=== PATIENT | female | born 1950 | race Caucasian/White ===

== ENCOUNTER → 2019-10-21 11:38 | Outpatient (BNVA) | payer MEDICARE, OTHER, SELFPAY | PROVIDERS: Family Provider Nurse Practitioner; PCP Nurse Practitioner; Visit Provider Nurse Practitioner | DX: I10 Essential (primary) hypertension (principal); J45.909 Unspecified asthma, uncomplicated | CPT/HCPCS: 80053 ==

== ENCOUNTER → 2020-05-21 11:34 | Outpatient (BNVA) | payer MEDICARE, OTHER, SELFPAY | PROVIDERS: Family Provider Nurse Practitioner; PCP Nurse Practitioner; Visit Provider Nurse Practitioner | DX: I10 Essential (primary) hypertension (principal); E78.2 Mixed hyperlipidemia; E55.9 Vitamin D deficiency, unspecified; J45.909 Unspecified asthma, uncomplicated; K21.9 Gastro-esophageal reflux disease without esophagitis; G47.00 Insomnia, unspecified | CPT/HCPCS: 80053; 80061; 82306; 83721; 84443 ==

== ENCOUNTER 2020-06-21 13:16 | Emergency (ER) | payer MEDICARE, OTHER, SELFPAY ==
[2020-06-21 13:20] VITALS: BP 174/80; PULSE 92; RESP 16; TEMP 36.6; O2SAT 96; BMI 29.9
--- NOTE | 2020-06-21 13:34 | XRR_ITS ---
PROCEDURE INFORMATION: Exam: XR Chest, 1 View Exam date and time: 06/21/2020 1:35 PM Age: 70 years old Clinical indication: Chest pain; Type not specified; Additional info: Cp TECHNIQUE: Imaging protocol: XR of the chest Views: 1 view. COMPARISON: No relevant prior studies available. FINDINGS: Lungs: There is a 1 cm calcified granuloma in the mid right lung. No acute pneumonia or edema. Pleural space: Unremarkable. No pleural effusion. No pneumothorax. Heart/Mediastinum: Unremarkable. No cardiomegaly. Bones/joints: Unremarkable. XR/XR chest 1V portable [id number] IMPRESSION: There are no acute concerning abnormalities.
--- NOTE | 2020-06-21 13:35 | ECG_ITS ---
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 Measurements Intervals [place] Rate: 86 P: 61 CA: 148 QRS: -27 QRSD: 89 T: 68 QT: 350 QTc: 421 Interpretive Statements SINUS RHYTHM BORDERLINE LEFT AXIS DEVIATION [QRS AXIS < -20] No previous ECG available for comparison Electronically Signed On 06-22-2020 8:04:34 HEEL FORMER by Halie Marie M.D. [id number]
--- NOTE | 2020-06-21 13:41 | W.ED.CHESTPA ---
HPI - Chest Pain General: Chief Complaint: Chest Pain Stated Complaint: CP, Hx of Covid Time Seen by Provider: 06/21/20 13:35 Source: patient Mode of arrival: ambulatory Limitations: no limitations History of Present Illness: HPI narrative: Ana Cristina is a 70-year-old female who states she has been having chest pain along with cough and shortness of breath over the last 3 days. She states she tested positive for Covid on 1015 and is out of quarantine. She states she is having a sharp pain along with cough and is worried she may have pneumonia. She denies any worsening improving factors. Denies any vomiting or diarrhea. Associated symptoms: Reports dyspnea; Deny abdominal pain, fever(s), nausea or vomiting Review of Systems Const: Denies: fever(s), chills, body aches or change in appetite Eyes: Denies: blurry vision or eye discomfort ENMT: Denies: throat pain or dental pain Card: Reports: chest pain Resp: Reports: dyspnea and non-productive cough GI: Denies: abdominal pain, nausea, vomiting or diarrhea : Denies: dysuria Musc: Denies: neck pain or back pain Skin/Breast: Denies: rash Neuro: Denies: headache(s) Psych: Denies: depression Franc/Lymph: Denies: easy bruising All/Imm: Denies: urticaria PFSH ED PFSH: Medical History Asthma Diverticulosis Essential (primary) hypertension GERD (gastroesophageal reflux disease) Mixed hyperlipidemia Vitamin D deficiency Surgical History H/O colonoscopy 5 yrs ago History of cholecystectomy History of foot surgery Left 2nd toe joint removed History of hysterectomy History of tonsillectomy Family History Mother Diabetes Son Hypertension Daughter Hypertension Diabetes Father Cardiovascular disease Grandmother Anesthesia complication Denies family history of Bleeding disorder Social History Smoking and tobacco status: never smoked Second hand smoke exposure: No Smoking risk assessment/counseling performed?: No Alcohol intake: never Desire information about alcohol rehabilitation?: No Counseling given: No Desire information about substance/drug rehabilitation?: No Counseling given: No Adopted: No Caregiver/support person: No Lives independently: Yes Marital status: Number of children: 2 Current occupational status: retired History of recent travel: No Current gender identity: Female Physical Exam Const: COMMON NORMALS: no acute distress, patient oriented x3 and healthy appearing HENMT: COMMON NORMALS: normocephalic and atraumatic HEAD & SCALP: normocephalic and atraumatic Eye: COMMON NORMALS: Equal, round and reactive pupils present and EOMs intact bilaterally PUPIL: Yes Equal, round and reactive pupils present Neck/C-Spine: COMMON NORMALS: full ROM and supple Chest: COMMONS NORMALS: normal inspection of the chest and normal palpation of entire chest wall Resp: COMMON NORMALS: normal respiratory effort, No retractions, No use of accessory muscles and clear to auscultation bilaterally AUSCULTATION: clear to auscultation bilaterally Cardio: COMMON NORMALS: regular rate, regular rhythm and No murmurs present (Cardio) RATE: regular rate RHYTHM: regular rhythm GI: COMMON NORMALS: Normal to inspection, nondistended, normoactive bowel sounds present, Soft to palpation, non-tender and no masses PALPATION: Yes Soft to palpation Extremity: COMMON NORMALS: normal to inspection and full ROM Neuro: COMMON NORMALS: patient oriented x3, moves all extremities and no focal motor deficits Psych: COMMON NORMALS: mental status grossly normal, Normal thought process present and cooperative THOUGHT PROCESS: Normal thought process present Skin: COMMON NORMALS: no rashes or lesions noted and no wounds GENERAL SKIN EXAM: no rashes or lesions noted Course Vital Signs: Vital signs: Vital Signs Temperature 97.9 F 06/21/20 13:20 Pulse Rate 86 06/21/20 14:43 Respiratory Rate 24 H 06/21/20 14:43 Blood Pressure 162/63 06/21/20 14:43 Pulse Oximetry 95 06/21/20 14:43 MDM - Chest Pain MDM Narrative: Medical decision making narrative: Patient presents here with some chest pain along with dyspnea that is atypical in nature. Is likely post Covid. Patient feels much better here after treatment and steroid. Patient is stable for discharge. X-ray showed no pneumonia. She has no signs of pulmonary embolism. Troponin here is negative. Lab Data: Labs: Lab Results 11/08/20 11/08/20 11/08/20 Range/Units 13:50 13:50 13:50 WBC 9.0 (4.0-10.0) 10^3/ uL RBC 4.46 (4.1-5.3) 10^6/u L Hgb 14.3 (11.5-15.3) g/dL Hct 42.4 (37.0-47.0) % MCV 95.1 (81-99) fL MCH 32.1 (28.0-34.0) pg MCHC 33.7 (30.0-36.0) g/dL RDW 12.0 L (12.1-15.1) % Plt Count 281 (130-400) 10^3/c mm MPV 9.9 (7.4-10.4) fL Neut % (Auto) 76.4 % Lymph % (Auto) 10.4 % [place] % (Auto) 11.4 % Eos % (Auto) 0.4 % Baso % (Auto) 0.4 % Neut # (Auto) 6.88 (1.8-7.7) 10^3/u L Lymph # (Auto) 0.9 (0.8-4.8) 10^3/u L [place] # (Auto) 1.0 H (0.2-0.9) 10^3/u L Eos # (Auto) 0.0 (0.0-0.8) 10^3/u L Baso # (Auto) 0.0 (0.0-0.1) 10^3/u L Nucleated RBC % (a uto) 0 % Nucleated RBCs # 0.0 /100WBC PT 13.50 (12.1-14.9) SECO NDS INR 1.00 (0.8-1.2) D-Dimer 0.58 (0-0.59) ug/mIFE U Sodium 136 (136-145) mmol/L Potassium 4.2 (3.5-5.1) mmol/L Chloride 98 (98-107) mmol/L Carbon Dioxide 27 (22-29) mmol/L Anion Gap 15.2 (5-19) BUN 17 (8-23) mg/dL Creatinine 0.7 (0.5-0.9) mg/dL GFR Calculation 83.0 L (90-130) mL/min Glucose 198 H (65-115) mg/dL Calculated Osmolal ity 289 (285-295) mOsm/k g Calcium 8.9 (8.5-10.5) mg/dL Total Bilirubin 1.4 H (0.15-1.2) mg/dL AST 17 (0-32) U/L ALT 19 (0-33) U/L Alkaline Phosphata se 64 (35-105) IU/L Troponin T Baselin e (0-10) ng/L NT-Pro-B Natriuret Pep 459 H (0-125) pg/mL Total Protein 6.5 L (6.6-8.7) g/dL Albumin 4.0 (3.5-5.2) g/dL Globulin 2.5 (1.3-4.6) g/dL 06/21/20 Range/Units 13:50 WBC (4.0-10.0) 10^3/ uL RBC (4.1-5.3) 10^6/u L Hgb (11.5-15.3) g/dL Hct (37.0-47.0) % MCV (81-99) fL MCH (28.0-34.0) pg MCHC (30.0-36.0) g/dL RDW (12.1-15.1) % Plt Count (130-400) 10^3/c mm MPV (7.4-10.4) fL Neut % (Auto) % Lymph % (Auto) % [place] % (Auto) % Eos % (Auto) % Baso % (Auto) % Neut # (Auto) (1.8-7.7) 10^3/u L Lymph # (Auto) (0.8-4.8) 10^3/u L [place] # (Auto) (0.2-0.9) 10^3/u L Eos # (Auto) (0.0-0.8) 10^3/u L Baso # (Auto) (0.0-0.1) 10^3/u L Nucleated RBC % (a uto) % Nucleated RBCs # /100WBC PT (12.1-14.9) SECO NDS INR (0.8-1.2) D-Dimer (0-0.59) ug/mIFE U Sodium (136-145) mmol/L Potassium (3.5-5.1) mmol/L Chloride (98-107) mmol/L Carbon Dioxide (22-29) mmol/L Anion Gap (5-19) BUN (8-23) mg/dL Creatinine (0.5-0.9) mg/dL GFR Calculation (90-130) mL/min Glucose (65-115) mg/dL Calculated Osmolal ity (285-295) mOsm/k g Calcium (8.5-10.5) mg/dL Total Bilirubin (0.15-1.2) mg/dL AST (0-32) U/L ALT (0-33) U/L Alkaline Phosphata se (35-105) IU/L Troponin T Baselin e 10 (0-10) ng/L NT-Pro-B Natriuret Pep (0-125) pg/mL Total Protein (6.6-8.7) g/dL Albumin (3.5-5.2) g/dL Globulin (1.3-4.6) g/dL Imaging Data^: CXR: Attestation: I personally reviewed and interpreted this imaging study as follows: My impression: No acute abnormality EKG Data^: EKG 1: Attestation: I personally reviewed and interpreted this EKG as follows: EKG interpretation date: 06/21/20 Interpretation: Normal sinus rhythm heart rate [address] or T wave abnormalities QRS 89 QTc 394 Discharge Plan Discharge Patient Disposition: Home Clinical Impression: Atypical chest pain Condition: Stable Prescriptions: No Action albuterol sulfate [Proventil HFA] 90 mcg/actuation HFA aerosol inhaler 2 puff INHALATION TID PRN (Reason: shortness of breath or wheezing) Qty: 18 RF: 5 montelukast 10 mg tablet 10 mg PO DAILY Qty: 30 RF: 2 Blood Pressure Support 1 tab PO DAILY RF: 0 Discharge Orders: Discharge Order (Routine); Ordered 06/21/20 Ordered By: Maxine Nichole Referrals: Cornelius Hansen FNP-C [Primary Care Provider] - 1-3 days Discharge Diet: Advance as tolerated Discharge Activity: Resume usual activity Patient Instructions: Chest Pain (ED) Coding Level of Care Code ED Director Traffic And Planning for Chg Fwd Exam Comprehensive
[2020-06-21 14:07] LABS: Basophils % 0.4 %; Eosinophils % 0.4 %; Hematocrit 42.4 % (37.0-47.0); Hemoglobin 14.3 g/dL (11.5-15.3); Lymphocytes # 0.9 10^3/uL (0.8-4.8); Lymphocytes % 10.4 %; Mean Corpuscular HGB Conc 33.7 g/dL (30.0-36.0); Mean Corpuscular Hemoglobin 32.1 pg (28.0-34.0); Mean Corpuscular Volume 95.1 fL (81-99); Mean Platelet Volume 9.9 fL (7.4-10.4); Monocytes % 11.4 %; Neutrophils # 6.88 10^3/uL (1.8-7.7); Neutrophils % 76.4 %; Nucleated Red Blood Cells % 0 %; Platelet Count 281 10^3/cmm (130-400); Red Blood Count 4.46 10^6/uL (4.1-5.3)
[2020-06-21] MEDS: dexamethasone 4 mg/mL INJ 10 MG IVP (14:10)
[2020-06-21 14:31] LABS: Troponin(5th) Baseline 10 ng/L (0-10)
[2020-06-21 14:32] VITALS: PULSE 84; RESP 16; O2SAT 97
[2020-06-21] MEDS: albuterol 8 gm MDI 2 PUFF INHALATION (14:33)
[2020-06-21 14:36] LABS: Alanine Aminotransferase 19 U/L (0-33); Alkaline Phosphatase 64 IU/L (35-105); Aspartate Amino Transferase 17 U/L (0-32); Blood Urea Nitrogen 17 mg/dL (8-23); Calcium 8.9 mg/dL (8.5-10.5); Carbon Dioxide 27 mmol/L (22-29); Chloride 98 mmol/L (98-107); Creatinine Clr Calc Pharmacy 70.0508; Globulin 2.5 g/dL (1.3-4.6); Glucose 198 mg/dL (65-115); NT Pro B Type Natriuretic Pept 459 pg/mL (0-125); Osmolality Calculated 289 mOsm/kg (285-295); Sodium 136 mmol/L (136-145); Total Bilirubin 1.4 mg/dL (0.15-1.2); Total Protein 6.5 g/dL (6.6-8.7)
[2020-06-21 14:43] VITALS: BP 162/63; PULSE 86; RESP 24; O2SAT 95
[2020-06-21 14:44] LABS: Anion Gap 15.2 (5-19); Potassium 4.2 mmol/L (3.5-5.1)
[2020-06-21 14:49] LABS: D Dimer 0.58 ug/mIFEU (0-0.59)
[2020-06-21] MEDS: morphine 4 mg/mL SDV 1 mL IVP (14:55)
[2020-06-21] MEDS: ondansetron 2 mg/ML SDV 2 mL 4 MG IVP (14:55)
[2020-06-21 15:19] VITALS: BP 159/86; PULSE 85; RESP 15; O2SAT 93
== END 2020-06-21 15:19 | disposition home or self-care (01) ==
PROVIDERS: Emergency Provider Emergency Medicine; PCP Nurse Practitioner
DX: R07.89 Other chest pain (principal); I10 Essential (primary) hypertension; E78.2 Mixed hyperlipidemia
CPT/HCPCS: 12345; 71045; 80053; 83880; 84484; 85025; 85378; 85610; 93005; 94640; 96374; 96375; 99282; 99284; J1100; J2270; J2405; J3535

== ENCOUNTER → 2020-07-15 17:47 | Outpatient (BNVA) | payer MEDICARE, OTHER, SELFPAY | PROVIDERS: PCP Nurse Practitioner; Visit Provider Surgery | DX: Z01.818 Encounter for other preprocedural examination (principal); Z20.828 Contact with and (suspected) exposure to other viral communicable diseases; K21.9 Gastro-esophageal reflux disease without esophagitis | CPT/HCPCS: 87635 ==

== ENCOUNTER 2020-08-18 08:16 | Day surgery (SDC) | payer MEDICARE, OTHER, SELFPAY ==
[2020-08-13 14:07] VITALS: BMI 30.9
[2020-08-18 08:40] VITALS: BP 170/88; PULSE 78; RESP 18; TEMP 37.1; O2SAT 94
[2020-08-18] MEDS: sodium chloride 0.9% 1,000 ML 30 ML IV (09:13)
--- NOTE | 2020-08-18 11:51 | W.PM.OPSFHP ---
Same Day Surgery H&P Indication for Procedure/HPI DATE OF PROCEDURE: August 18, 2020 CHIEF COMPLAINT/INDICATIONFOR SURGICAL PROCEDURE: dysphagia PREOP DIAGNOSIS: upper gi symptoms PLANNED PROCEDRUE: Operation Date: 08/18/20 09:30 Proposed Procedures p EGD Dilation W/ Balloon 13574 R13.10(Not Applicable) - Renny Stevens MD Medications/Allergies* Home Medications Medication Instructions Recorded Confirmed Type Blood Pressure Support 1 tab PO DAILY 06/21/20 08/13/20 History lisinopril 40 mg PO PRN 08/13/20 08/18/20 History montelukast 10 mg PO PRN 08/18/20 08/18/20 History Allergies/Adverse Reactions Allergy/AdvReac Type Severity Reaction Status Date / Time cephalexin [From Keflex] Allergy rash Verified 06/23/20 13:22 doxycycline Allergy rash Verified 06/23/20 13:22 erythromycin base Allergy Rash Verified 06/23/20 13:22 nitrofurantoin Allergy rash Verified 06/23/20 13:22 [From Macrodantin] Sulfa (Sulfonamide Allergy ALGY-Hives Verified 06/23/20 13:22 Antibiotics) metformin AdvReac Severe Diarrhea Verified 06/23/20 13:22 atorvastatin [From Lipitor] AdvReac Myalgia Verified 06/23/20 13:22 Current Medications: Generic Name Dose Route Start Last Admin Trade Name Freq PRN Reason Stop Dose Admin Sodium Chloride 1,000 mls @ 30 mls/hr 08/18/20 09:00 08/18/20 09:13 Sodium Chloride 0.9% IV 08/19/20 08:59 30 mls/hr .Q24H GABRIELLA Administration Pertinent History/Comorbid Conditions* Medical History (Updated 06/29/20 @ 00:00 by ) Asthma Diverticulosis Essential (primary) hypertension GERD (gastroesophageal reflux disease) Mixed hyperlipidemia Vitamin D deficiency Surgical History (Updated 06/15/20 @ 08:59 by Renny Stevens MD) H/O colonoscopy 5 yrs ago History of cholecystectomy History of foot surgery Left 2nd toe joint removed History of hysterectomy History of tonsillectomy Family History (Updated 06/15/20 @ 08:48 by Darcy Gamez LPN) Diabetes Mother Daughter Cardiovascular disease Father Anesthesia complication Grandmother Hypertension Son Daughter Denies family history of Bleeding disorder Social History Smoking and tobacco status: never smoked Second hand smoke exposure: No Smoking risk assessment/counseling performed?: No Alcohol intake: never Desire information about alcohol rehabilitation?: No Counseling given: No Desire information about substance/drug rehabilitation?: No Counseling given: No Adopted: No Caregiver/support person: No Lives independently: Yes Marital status: Number of children: 2 Current occupational status: retired History of recent travel: No Current gender identity: Female Pertinent Exam Findings alert, oriented x 3 and regular rate & rhythm Recommendations Surgery/Procedure today Coding Level of Care Code Acute 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
--- NOTE | 2020-08-18 11:53 | ANES.PREANE2 ---
Pre-Anesthetic Assessment Pre-Anesthetic Assessment: Height/Weight: Height 1.63 m Weight 81.647 kg Temp Pulse Resp BP Pulse Ox 98.7 F 78 18 170/88 94 08/18/20 08:40 08/18/20 08:40 08/18/20 08:40 08/18/20 08:40 08/18/20 08:40 Preop Diagnosis: upper gi symptoms Proposed Procedure: Operation Date: 08/18/20 09:30 Proposed Procedures p EGD Dilation W/ Balloon 97707 R13.10(Not Applicable) - Renny Stevens MD Familial anesthetic complications: none Was Beta Patrizia taken within 24 hours: N/A Last intake: Intake Last Liquid Date 08/17/20 Last Liquid Time 23:30 Last Solid Date 08/17/20 Last Solid Time 19:00 Social: Social History: No alcohol and No tobacco Exam: Pre-Anes Outpt Exam: alert, oriented x 3, clear to auscultation bilaterally and regular rate & rhythm Airway: Cervical ROM: WNL MP: 3 Dentition: Full Pulmonary: Pulmonary: Asthma CV/HEM: CV/HEM: HTN GI: GI: GERD Metabolic: Metabolic: Hyperlipidemia Anesthetic Plan: ASA status: 2 Anesthesia: MAC Risk of > 500 ml blood loss (7ml/kg in children): No Meds/Allergies Current Medications: Current Medications Generic Name Dose Route Start Last Admin Trade Name Freq PRN Reason Stop Dose Admin Sodium Chloride 1,000 mls @ 30 ml s/hr 08/18/20 09:00 08/18/20 09:13 Sodium Chloride 0.9% IV 08/19/20 08:59 30 mls/hr .Q24H GABRIELLA Administration PFSH Anesthesia PFSH: Medical History (Updated 06/29/20 @ 00:00 by ) Asthma Diverticulosis Essential (primary) hypertension GERD (gastroesophageal reflux disease) Mixed hyperlipidemia Vitamin D deficiency Surgical History H/O colonoscopy 5 yrs ago History of cholecystectomy History of foot surgery Left 2nd toe joint removed History of hysterectomy History of tonsillectomy Family History Mother Diabetes Son Hypertension Daughter Hypertension Diabetes Father Cardiovascular disease Grandmother Anesthesia complication Denies family history of Bleeding disorder Social History Smoking and tobacco status: never smoked Second hand smoke exposure: No Smoking risk assessment/counseling performed?: No Alcohol intake: never Desire information about alcohol rehabilitation?: No Counseling given: No Desire information about substance/drug rehabilitation?: No Counseling given: No Adopted: No Caregiver/support person: No Lives independently: Yes Marital status: Number of children: 2 Current occupational status: retired History of recent travel: No Current gender identity: Female Data Anesthesia Cardiac Studies: No Data to Display
--- NOTE | 2020-08-18 12:09 | SUR.OPER ---
1205 Balloon dilation with 15, 16.5, 18 and 18, 19, 20. Pt tolerated well.
[2020-08-18 12:13] VITALS: BP 161/74; PULSE 86; RESP 16; TEMP 36.3; O2SAT 94
[2020-08-18 12:28] VITALS: BP 169/79; PULSE 86; RESP 16; TEMP 37.1; O2SAT 94
--- NOTE | 2020-08-18 13:42 | SUR.PHASEII ---
PATIENT TOLERATED COOL PO FLUIDS WELL.
--- NOTE | 2020-08-18 18:55 | ANE.PACU2 ---
Inpatient post-anesthesia follow up: Airway intact: Yes Vital signs: Temperature 98.7 F Pulse Rate 86 Respiratory Rate 16 Blood Pressure 169/79 Pulse Oximetry 94 Oxygen Delivery Me thod Room Air Oxygen Flow Rate 4 Fraction of Inspir ed Oxygen Hydration adequate: Yes Nausea and vomiting: No Pain level: 1 Mental status: Baseline
== END 2020-08-18 13:35 | disposition home or self-care (01) ==
PROVIDERS: PCP Nurse Practitioner; Visit Provider Surgery
DX: R13.10 Dysphagia, unspecified (principal); J45.909 Unspecified asthma, uncomplicated; I10 Essential (primary) hypertension; K21.9 Gastro-esophageal reflux disease without esophagitis; E78.2 Mixed hyperlipidemia; K44.9 Diaphragmatic hernia without obstruction or gangrene; K22.2 Esophageal obstruction
CPT/HCPCS: 12345; 43239; 43249; 88305; J2704; J3490; J7030

== ENCOUNTER 2020-12-23 14:11 | Outpatient (CLI) | payer MEDICARE, OTHER, SELFPAY ==
--- NOTE | 2020-12-23 14:18 | MM_ITS ---
WS: [id number] SCREENING DIGITAL MAMMOGRAM WITH CAD HISTORY: SCREENING COMPARISON: 03/03/2016 Bilateral CC and MLO views submitted. Computer aided detection analyzed. Breast composition: There are scattered areas of fibroglandular density. No suspicious masses, microc alcifications or architectural distortion. Benign calcifications in each breast. MM/[place] [id number] IMPRESSION: BI-RADS: 2-Benign FOLLOW UP: 1 Year Follow-up
--- NOTE | 2020-12-23 15:07 | XR_ITS ---
WS: [id number] SCREENING DEXA SCAN [employer] CLINICAL INFORMATION: POST MENOPAUSAL COMPARISON: 2015 FINDINGS: The L1-L4 bone mineral density measures 1.342 g/cm2. This corresponds to a T score score of 1.4 and Z score of 2.4. Left femoral neck bone mineral density measures 1.290 g/cm2. This corresponds to a T score of 2.2 and Z score of 3.2. Right femoral neck bone mineral density measures 1.162 g/cm2. This corresponds to a T score 1.2of and Z score of 2.2. Mean femoral neck bone mineral density measures 1.226 g/cm2. This corresponds to a T score of 1.7 and Z score of 2.7. XR/XR DEXA axial skeleton* [id number] IMPRESSION: Normal bone mineralization. Patient's FRAX calculated 10 year probability for major osteoporotic fracture i s 7.2 % and osteoporotic hip fracture is 0.4%.
== END 2020-12-23 14:12 | disposition home or self-care (01) ==
LOC: RADSHAW 14:17
PROVIDERS: PCP Family Medicine; Visit Provider Family Medicine
DX: Z12.31 Encounter for screening mammogram for malignant neoplasm of breast (principal); Z78.0 Asymptomatic menopausal state
CPT/HCPCS: 77067; 77080

== ENCOUNTER → 2021-07-20 13:34 | Outpatient (BNVA) | payer MEDICARE, OTHER, SELFPAY | PROVIDERS: PCP Family Medicine; Visit Provider Nurse Practitioner | DX: I10 Essential (primary) hypertension (principal); J45.20 Mild intermittent asthma, uncomplicated; L24.7 Irritant contact dermatitis due to plants, except food | CPT/HCPCS: 80053; 80061; 83721; 84443 ==

== ENCOUNTER → 2022-02-16 11:06 | Outpatient (BNVA) | payer MEDICARE, OTHER, SELFPAY | PROVIDERS: PCP Family Medicine; Visit Provider Nurse Practitioner | DX: E78.2 Mixed hyperlipidemia (principal); R73.9 Hyperglycemia, unspecified; I10 Essential (primary) hypertension | CPT/HCPCS: 80053; 80061; 83036 ==

== ENCOUNTER → 2022-05-02 09:56 | Outpatient (BNVA) | payer MEDICARE, OTHER, SELFPAY | PROVIDERS: PCP Nurse Practitioner; Visit Provider Internal Medicine Cardiovascular Disease | DX: R07.9 Chest pain, unspecified (principal); I10 Essential (primary) hypertension; E78.5 Hyperlipidemia, unspecified; I65.29 Occlusion and stenosis of unspecified carotid artery | CPT/HCPCS: 99204; 99205 ==

== ENCOUNTER 2022-06-01 15:22 | Outpatient (CLI) | payer MEDICARE, OTHER, SELFPAY ==
--- NOTE | 2022-06-01 15:45 | USCV_ITS ---
Ana Cristina Stephens Age: 72 Gender: F : 1950 Exam Date: 06/01/2022 15:45 Ordering Phys: Juventino Wylie MD ([email or web address]) Technologist: SANJUANA [place] [facility] [place]: CAROTID BRUIT Risk Factors: Previous Vascular Surgery: Right Brachial BP: / Left Brachial BP: / Right Left Velocity (cm/s) Spectral Plaque Velocity (cm/s) Spectral Plaque Syst/Diast Broadening Syst/Diast Broadening 80.80/ 4.80 Prox CCA 62.90 / 17.90 51.90/ 7.90 Mid CCA 73.80 / 15.50 42.70/ 7.90 Distal CCA 79.20 / 27.20 33.80/ 6.80 Prox ICA 86.20 / 31.80 30.30/ 2.30 Mid ICA 123.60/ 35.50 23.00/ 5.90 Distal ICA 94.70 / 31.60 145.50 ECA 53.10 0.42 ICA/CCA 1.56 Vertebral 54.60/ 13.10 cm/s 48.00/ 9.20 cm/s Subclavian 173.2 132.8 0 0 CONCLUSIONS Right ICA stenosis <50%. Moderate calcified atheromatous plaque right carotid bulb/ICA. Poor flow in the right ICA distally. Recommend further evaluation with CTA Left ICA stenosis <50%. Moderate atheromatous plaque left carotid bulb/ICA. Normal antegrade Doppler flow noted in the right vertebral artery. Normal antegrade Doppler flow noted in the left vertebral artery. Aayush Zheng MD (Electronically Signed) Final Date: 01 June 2022 16:50 S
== END 2022-06-01 15:23 | disposition home or self-care (01) ==
LOC: RAD 15:24
PROVIDERS: PCP Nurse Practitioner; Visit Provider Internal Medicine Cardiovascular Disease
DX: R09.89 Other specified symptoms and signs involving the circulatory and respiratory systems (principal); I65.23 Occlusion and stenosis of bilateral carotid arteries
CPT/HCPCS: 93880

== ENCOUNTER 2022-06-07 15:31 | Outpatient (CLI) | payer MEDICARE, OTHER, SELFPAY ==
--- NOTE | 2022-06-07 15:45 | USCV_ITS ---
Ana Cristina Stephens Age: 72 Gender: F : 1950 Exam Date: 06/07/2022 15:43 Ordering Phys: Juventino Wylie MD ([email or web address]) Technologist: Luke Faria [place] [facility]ication: chest pain BP: 168 / 84 HR: 68 Rhythm: Sinus Technical Quality: Adequate MEASUREMENTS (Male / Female) Normal Values 2D ECHO LV Diastolic Diameter PLAX 3.6 cm 4.2 - 5.9 / 3.9 - 5.3 cm LV Systolic Diameter PLAX 2.5 cm IVS Diastolic Thickness 1.0 cm 0.6 - 1.0 / 0.6 - 0.9 cm IVS Systolic Thickness 1.2 cm LVPW Diastolic Thickness 0.9 cm 0.6 - 1.0 / 0.6 - 0.9 cm LVPW Systolic Thickness 1.3 cm LVOT Diameter 2.0 cm LV Ejection Fraction 2D Teich 60.4 % LV Ejection Fraction MOD 2C 65.8 % LV Ejection Fraction 2C AL 67.2 % LA Diameter 3.2 cm LA Width 3.1 cm LA Height 3.9 cm RA Width 3.0 cm RA Height 3.9 cm Aorta at Sinotubular Diameter 2.5 cm IVC Diameter 1.6 cm M-MODE Aortic Annulus Diameter 2.5 cm LA Ao Ratio MM 1.3 MV E Point Septal Separation 0.6 cm DOPPLER AV Peak Velocity 141.0 cm/s LVOT Peak Velocity 101.0 cm/s AV Area Cont Eq vti 2.3 cm squared AV Area Cont Eq pk 2.3 cm squared MV Peak Velocity 179.0 cm/s MV Area PHT 3.3 cm squared Mitral E to A Ratio 0.7 MV E' Velocity 58.5 cm/s Mitral E to MV E' Ratio 14.7 Mitral E to LV E' Lateral Ratio 14.4 Mitral E to LV E' Septal Ratio 15.2 TR Peak Velocity 307.1 cm/s TR Peak Gradient 37.7 mmHg TR Mean Velocity 242.3 cm/s TR Mean Gradient 24.8 mmHg TR Velocity Time Integral 75.7 cm Right Atrial Pressure 3.0 mmHg Pulmonary Artery Systolic Pressu 40.7 mmHg PV Peak Velocity 119.0 cm/s RV Acceleration Time 0.1 s RV Ejection Time 0.3 s RV AcT/ET 0.4 FINDINGS Left Ventricle Normal left ventricular size and systolic function, EF 66 %. Mild left ventricular hypertrophy. Grade I/IV diastolic dysfunction (abnormal relaxation filling pattern), normal to mildly elevated filling pressures. Right Ventricle The right ventricle is normal in size and function. Right Atrium The right atrium is normal in size. Left Atrium The left atrium is normal in size. Mitral Valve Calcification of the chordae attached to the posterior mitral leaflet. Moderate mitral annular calcification. Trace mitral valve regurgitation. Aortic Valve Thickened noncoronary cusp of aortic valve. Tricuspid Valve Trace tricuspid valve regurgitation. Pulmonic Valve Structurally normal pulmonic valve without significant stenosis. There is no pulmonic regurgitation. Pericardium No pericardial effusion. Aorta Normal aortic annulus size. IVC The inferior vena cava appears normal. CONCLUSIONS Normal left ventricular size and systolic function, EF 66 %. Mild left ventricular hypertrophy. Grade I/IV diastolic dysfunction (abnormal relaxation filling pattern), normal to mildly elevated filling pressures. Calcification of the chordae attached to the posterior mitral leaflet. Moderate mitral annular calcification. Trace mitral valve regurgitation. Thickened noncoronary cusp of aortic valve. Trace tricuspid valve regurgitation. Mild pulmonary hypertension with an estimated pulmonary artery peak systolic pressure of 41 mmHg. There is no pericardial effusion. There are no intracardiac masses. No similar previous studies are available for comparison Dr Juventino Wylie MD [facility] (Electronically Signed) Final Date: 08 June 2022 10:20 S
== END 2022-06-07 15:32 | disposition home or self-care (01) ==
PROVIDERS: PCP Nurse Practitioner; Visit Provider Internal Medicine Cardiovascular Disease
DX: I08.1 Rheumatic disorders of both mitral and tricuspid valves (principal)
CPT/HCPCS: 93306

== ENCOUNTER 2022-06-10 09:42 | Outpatient (CLI) | payer MEDICARE, OTHER, SELFPAY ==
[2022-06-10 09:51] VITALS: BMI 29.5
--- NOTE | 2022-06-10 10:26 | ECG_ITS ---
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 Interpretive Statements NAME OF STUDY: LEXISCAN SESTAMIBI STRESS TEST INDICATION: Chest Pain, PROCEDURE: At the baseline, the EKG revealed normal sinus rhythm with diffuse T inversions in the anterolateral and inferior leads. The baseline heart was 67 bpm with a blood pressue of 182/75 mm of Hg Lexiscan was infused over a period of 20 seconds. A total of 0.4 milligrams of Lexiscan was infused. The stress phase was continued for a total of 5 minutes. Heart rate at the end of the stress phase was 84 bpm with a blood pressure 178/79 mm of Hg. The EKG at the peak infusion revealed no significant changes. Sestamibi was injected 20 seconds after the Lexiscan infusion. Heart rate at the end of the recovery phase was 81 bpm with a blood pressure of 182/68 mm of Hg. CONCLUSION: 1. No significant EKG changes with the LexiScan infusion 2. No LexiScan induced chest pain or cardiac arrhythmia 3. Normal blood pressure and heart rate response 4. Sestamibi/sestamibi perfusion scan pending; see separate report. Electronically Signed On 06-17-2022 7:35:27 CDT by Juventino Wylie M.D. [email or web address]
--- NOTE | 2022-06-10 10:26 | NMCV_ITS ---
NM iker perf SPECT r/s* [id number] Ana Cristina Stephens Age: 72 Gender: F : 1950 Exam Date: 06/10/2022 11:15 Ordering Phys: Juventino Wylie MD ([email or web address]) Technologist: NEPTALI Swartz Exam Location: [facility] Indications: CHEST PAIN STRESS TEST Please see separate stress test report in [facility] for full findings IMAGE PROTOCOL Rest/Stress 1 Lexiscan Day Radiopharmaceutical Dose (mCi) Administration Site Administered by Rest: Tc-99m 10.6 IV NEPTALI Swartz Sestamibi Stress:Tc-99m 32.6 IV NEPTALI Swartz Sestamibi Rest: 10-Jun-2022 60 Discovery 630 Stress: 10-Jun-2022 30 Discovery 630 0.4mg Lexiscan. Images obtained in supine and prone position. SPECT RESULTS Technical Quality: Excellent Raw Data Analysis: Normal Image Corrections: No attenuation or motion correction applied Summed Stress Score: 0 Summed Rest Score: 1 Summed Difference Score: 0 PERFUSION FINDINGS Fairly uniform myocardial tracer uptake with no significant perfusion normalities FUNCTIONAL RESULTS (calculated via Gated SPECT) Stress Image LV EF (%): 66 Stress EDV (mL):88 TID: 1.2 Stress ESV (mL):30 FUNCTIONAL FINDINGS: Segmental wall motion analysis revealing mild hypokinesia of the LV apex. IMPRESSIONS 1. Myocardial perfusion imaging revealing fairly uniform myocardial tracer uptake with no significant perfusion normalities. Elevated transient ischemic dilatation ratio may suggest endocardial ischemia. However the positive predictive value of this finding is limited. 2. Normal LV ejection fraction 66%. 3. Mild hypokinesia of the LV apex. 4. Normal LV volume Clinical correlation is recommended Dr Juventino Wylie MD [facility] (Electronically Signed) Final Date: 13 June 2022 08:49 S
[2022-06-10] MEDS: regadenoson 0.4 Mg/5 ml Syringe IVP (11:47)
[2022-06-10] MEDS: ondansetron 2 mg/ML SDV 2 mL 4 MG IVP (12:00)
[2022-06-10 12:05] VITALS: BP 182/68; PULSE 81
== END 2022-06-10 09:43 | disposition home or self-care (01) ==
PROVIDERS: PCP Nurse Practitioner; Visit Provider Internal Medicine Cardiovascular Disease
DX: R07.9 Chest pain, unspecified (principal)
CPT/HCPCS: 78452; A9500; J2405; J2785

== ENCOUNTER → 2022-06-14 13:47 | Outpatient (BNVA) | payer MEDICARE, OTHER, SELFPAY | PROVIDERS: PCP Nurse Practitioner; Visit Provider Internal Medicine Cardiovascular Disease | DX: R94.39 Abnormal result of other cardiovascular function study (principal); R07.9 Chest pain, unspecified; E78.2 Mixed hyperlipidemia; I10 Essential (primary) hypertension; I65.29 Occlusion and stenosis of unspecified carotid artery | CPT/HCPCS: 99215 ==

== ENCOUNTER 2022-06-17 09:12 | Outpatient (CLI) | payer MEDICARE, OTHER, SELFPAY ==
[2022-06-17 10:34] LABS: INR 0.99 (0.83-1.21); Prothrombin Time (Patient) 13.4 Seconds (12.0-15.1)
[2022-06-17 10:43] LABS: Anion Gap 12.1 (5-19); Blood Urea Nitrogen 14 mg/dL (8-23); Calcium 9.6 mg/dL (8.5-10.5); Carbon Dioxide 29 mmol/L (22-29); Chloride 102 mmol/L (98-107); Glucose 114 mg/dL (65-115); Osmolality Calculated 289 mOsm/kg (285-295); Potassium 4.1 mmol/L (3.5-5.1); Sodium 139 mmol/L (136-145)
[2022-06-17 10:54] LABS: Basophils % 0.9 %; Eosinophils # 0.1 10^3/uL (0.0-0.8); Eosinophils % 2.2 %; Hematocrit 43.8 % (37.0-47.0); Hemoglobin 14.5 g/dL (11.5-15.3); Lymphocytes # 0.6 10^3/uL (0.8-4.8); Lymphocytes % 18.9 %; Mean Corpuscular HGB Conc 33.1 g/dL (30.0-36.0); Mean Corpuscular Hemoglobin 31.7 pg (28.0-34.0); Mean Corpuscular Volume 95.6 fl (81-99); Mean Platelet Volume 9.8 fL (7.4-10.4); Monocytes # 0.3 10^3/uL (0.2-0.9); Monocytes % 9.6 %; Neutrophils # 2.19 10^3/uL (1.8-7.7); Neutrophils % 68.1 %; Nucleated Red Blood Cells % 0 %; Platelet Count 251 10^3/cmm (130-400); Red Blood Count 4.58 10^6/uL (4.1-5.3); Red Cell Distribution Width 11.5 % (12.1-15.1); White Blood Count 3.2 10^3/uL (4.0-10.0)
== END 2022-06-17 09:13 | disposition home or self-care (01) ==
LOC: LAB 09:14
PROVIDERS: PCP Nurse Practitioner; Visit Provider Internal Medicine Cardiovascular Disease
DX: R94.39 Abnormal result of other cardiovascular function study (principal); B96.81 Helicobacter pylori [H. pylori] as the cause of diseases classified elsewhere; K29.70 Gastritis, unspecified, without bleeding
CPT/HCPCS: 36415; 80048; 85025; 85610; 86850; 86900

== ENCOUNTER 2022-06-19 19:22 | Emergency (ER) | payer MEDICARE, OTHER, SELFPAY ==
[2022-06-19] VITALS (8 sets, daily range): BP systolic 161–201; BP diastolic 70–80; PULSE 61–77; RESP 15–24; TEMP 36.7; O2SAT 93–96; BMI 29.2
--- NOTE | 2022-06-19 19:46 | XRR_ITS ---
PROCEDURE INFORMATION: Exam: XR Chest Exam date and time: 06/19/2022 9:00 PM Age: 72 years old Clinical indication: Other: Palpitatons; Additional info: Palpitations TECHNIQUE: Imaging protocol: Radiologic exam of the chest. Views: 1 view. COMPARISON: CR XR chest 1V portable [id number] 06/21/2020 1:50 PM FINDINGS: Lungs: Chronic right upper lobe sub cm calcified granuloma. The lungs are clear. Pleural spaces: Unremarkable. No pleural effusion. No pneumothorax. Heart/Mediastinum: The heart size is normal. Bones/joints: Unremarkable. XR/XR chest 1V portable [id number] IMPRESSION: No change, no significant findings.
--- NOTE | 2022-06-19 19:48 | ECG_ITS ---
[facility] Test Date: 2022-06-19 Pat Name: Ana Cristina Stephens Department: Room: Gender: Female Speech Pathologist Assistant: : 1950 Requested By: Terrence Rosenthal Order Number: [id number] Taylor MD: Halie Maire M.D. Measurements Intervals [place] Rate: 78 P: 62 [place]: 157 QRS: 8 QRSD: 91 T: 91 QT: 366 QTc: 418 Interpretive Statements SINUS RHYTHM POSSIBLE LEFT ATRIAL ENLARGEMENT [-0.1mV P-WAVE IN V1/V2] NONSPECIFIC T-WAVE ABNORMALITY Compared to ECG 06/21/2020 13:29:15 T-wave abnormality now present Electronically Signed On 06-21-2022 12:06:05 HOME MANAGER by Halie Marie M.D. [id number] f
[2022-06-19 19:57] LABS: Eosinophils # 0.1 10^3/uL (0.0-0.8); Eosinophils % 2.5 %; Hematocrit 43.6 % (37.0-47.0); Hemoglobin 14.6 g/dL (11.5-15.3); Lymphocytes % 23.5 %; Mean Corpuscular HGB Conc 33.5 g/dL (30.0-36.0); Mean Corpuscular Hemoglobin 31.2 pg (28.0-34.0); Mean Corpuscular Volume 93.2 fl (81-99); Mean Platelet Volume 10.2 fL (7.4-10.4); Monocytes # 0.5 10^3/uL (0.2-0.9); Monocytes % 12.6 %; Neutrophils # 2.43 10^3/uL (1.8-7.7); Neutrophils % 60.2 %; Nucleated Red Blood Cells % 0 %; Platelet Count 253 10^3/cmm (130-400); Red Blood Count 4.68 10^6/uL (4.1-5.3); Red Cell Distribution Width 11.5 % (12.1-15.1)
[2022-06-19] MEDS: sodium chloride 0.9% 500 ML IV (19:57)
--- NOTE | 2022-06-19 20:12 | W.ED.ARRPALP ---
HPI - Arrhythmia/Palpitations General: Chief Complaint: Arrhythmia/Palpitations Stated Complaint: palpitations Time Seen by Provider: 06/19/22 19:36 History of Present Illness: 72-year-old lady with a history of a somewhat abnormal stress test. She notes that she was sitting in her recliner tonight watching TV and she began to feel odd. She felt like that her heart stopped for a second and she began to breathe heavily. She was quite hypertensive. She remained so. Sensation in her chest is gone. It resolved on its own. She has an angiogram scheduled for Monday. MD complaint: skipped beats and palpitations Onset (ago): hour(s) Duration: now resolved Severity: moderate Context: occurred during rest Arrhythmia history: other Associated symptoms: Reports anxiety, nausea and short of breath; Deny cough, pre-syncope, syncope or vomiting Treatments prior to arrival: other Review of Systems Const: Denies: fever(s) Eyes: Denies: change in vision Card: Denies: syncope or pre-syncope Resp: Reports: dyspnea; Denies: productive cough, non-productive cough or wheezing GI: Reports: nausea; Denies: abdominal pain or vomiting Musc: Denies: neck pain or back pain Neuro: Denies: headache(s) Psych: Reports: anxiety PFS ED PFSH: Medical History Asthma Diverticulosis Essential (primary) hypertension ARUN (generalized anxiety disorder) GERD (gastroesophageal reflux disease) Helicobacter pylori gastritis Mixed hyperlipidemia Nasal sinus congestion Obesity (BMI 30.0-34.9) TMJ (dislocation of temporomandibular joint) Vitamin D deficiency Surgical History H/O colonoscopy 5 yrs ago H/O esophagogastroduodenoscopy (08/18/20) with dilation History of cholecystectomy History of foot surgery Left 2nd toe joint removed History of hysterectomy History of tonsillectomy Family History Mother Diabetes Dementia Son Hypertension Daughter Hypertension Diabetes Cancer Lung disease Clotting disorder Father Cardiovascular disease Grandmother Anesthesia complication Cardiovascular disease Grandfather Cardiovascular disease Denies family history of CAD (coronary artery disease) Hyperlipidemia Psychiatric illness Chronic kidney disease (CKD) Suicide Bleeding disorder Family history of premature coronary artery disease Stroke Social History Smoking and tobacco status: never smoked Second hand smoke exposure: No Smoking risk assessment/counseling performed?: No Alcohol intake: never Desire information about alcohol rehabilitation?: No Counseling given: No Desire information about substance/drug rehabilitation?: No Counseling given: No Adopted: No Caregiver/support person: No Lives independently: Yes Marital status: Number of children: 2 Current occupational status: retired History of recent travel: No Current gender identity: Female Physical Exam Const: COMMON NORMALS: no acute distress GENERAL APPEARANCE: anxious; not ill appearing HENMT: COMMON NORMALS: normocephalic, atraumatic and Normal external nose present HEAD & SCALP: normocephalic and atraumatic FACE & SINUS: normal facial exam and face symmetric NOSE: Normal external nose present Eye: COMMON NORMALS: Equal, round and reactive pupils present and EOMs intact bilaterally PUPIL: Yes Equal, round and reactive pupils present Neck/C-Spine: GENERAL: Yes trachea midline Chest: CHEST: Yes Symmetrical chest wall rise Resp: COMMON NORMALS: normal respiratory effort, No use of accessory muscles and clear to auscultation bilaterally AUSCULTATION: clear to auscultation bilaterally Cardio: COMMON NORMALS: regular rate and regular rhythm RATE: regular rate RHYTHM: regular rhythm GI: COMMON NORMALS: Normal to inspection, nondistended, normoactive bowel sounds present Extremity: COMMON NORMALS: no pedal edema Neuro: HIRAM COMA SCALE: document GCS findings [place] coma scale eye opening: Spontaneous Hiram coma scale verbal response: Orientated [place] coma scale motor response: Obey commands [place] coma scale total score: 15 SENSORY EXAM: Yes extremities (intact) Psych: COMMON NORMALS: speech normal SPEECH: Yes normal speech Skin: COMMON NORMALS: no rashes or lesions noted GENERAL SKIN EXAM: no rashes or lesions noted Course Vital Signs: Vital signs: Vital Signs Temperature 98.0 F 06/19/22 19:37 Pulse Rate 67 06/19/22 23:00 Respiratory Rate 20 H 06/19/22 23:00 Blood Pressure 161/70 06/19/22 23:00 Pulse Oximetry 94 06/19/22 23:00 Oxygen Delivery Me thod 06/19/22 19:37 MDM - Arrhythmia/Palpitations Medical Decision Making 72-year-old female with palpitations, not really chest pain. She has an angiogram scheduled for Monday. She presents after feeling like her heart stopped for a second. She never lost consciousness. EKG shows a sinus rhythm with a normal axis. Intervals are normal. Rate is 70. There is no ST elevation or significant depression. There is T wave inversion in V4 5 and 6. Her symptoms have not recurred. Her delta troponin is 1.7. She would like to go home. She will be discharged, to follow-up for her angiogram in 2 days. She knows to return if symptoms return. Urinalysis shows no squamous cells, but leukocyte Estrace and white blood cells present. She does note some dysuria. This will be treated. Lab Data : 06/19/22 19:30 06/19/22 19: Radiology Impressions Chest X-Ray 06/19/22 19: IMPRESSION: No change, no significant findings. Laboratory Results WBC 4.0 10^3/uL (4.0-10.0) 06/19/22: RBC 4.68 10^6/uL (4.1-5.3) 06/19/22: Hgb 14.6 g/dL (11.5-15.3) 06/19/22: Hct 43.6 % (37.0-47.0) 06/19/22: MCV 93.2 fl (81-99) 06/19/22: MCH 31.2 pg (28.0-34.0) 06/19/22: MCHC 33.5 g/dL (30.0-36.0) 06/19/22: RDW 11.5 % (12.1-15.1) L 06/19/22: Plt Count 253 10^3/cmm (130-400) 06/19/22: MPV 10.2 fL (7.4-10.4) 06/19/22: Neut % (Auto) 60.2 % 06/19/22: Lymph % (Auto) 23.5 % 06/19/22: [place] % (Auto) 12.6 % 06/19/22: Eos % (Auto) 2.5 % 11/06/22 19:30 Baso % (Auto) 1.0 % 06/19/22:30 Neut # (Auto) 2.43 10^3/uL (1.8-7.7) 06/19/22: Lymph # (Auto) 1.0 10^3/uL (0.8-4.8) 06/19/22:30 [place] # (Auto) 0.5 10^3/uL (0.2-0.9) 06/19/22: Eos # (Auto) 0.1 10^3/uL (0.0-0.8) 06/19/22: Baso # (Auto) 0.0 10^3/uL (0.0-0.1) 06/19/22: Nucleated RBC % (auto) 0 % 06/19/22: Nucleated RBCs # 0.0 /100WBC 06/19/22: PT 12.80 SECONDS (12.1-14.9) 06/19/22: INR 0.93 (0.8-1.2) 06/19/22: APTT 25.4 SECONDS (23.9-36.7) 06/19/22:30 Sodium 135 mmol/L (136-145) L 06/19/22: Potassium 3.6 mmol/L (3.5-5.1) 06/19/22: Chloride 98 mmol/L (98-107) 06/19/22: Carbon Dioxide 24 mmol/L (22-29) 06/19/22:30 Anion Gap 16.6 (5-19) 06/19/22 19:30 BUN 19 mg/dL (8-23) 06/19/22:30 Creatinine 0.9 mg/dL (0.5-0.9) 06/19/22: GFR Calculation Not Reportable 06/19/22: Glucose 173 mg/dL (65-115) H 06/19/22: Calculated Osmolality 286 mOsm/kg (285-295) 06/19/22: Calcium 9.3 mg/dL (8.5-10.5) 06/19/22: Phosphorus 3.4 mg/dL (2.5-4.5) 06/19/22 19:30 Magnesium 2.3 mg/dL (1.7-2.3) 06/19/22 19:30 Total Bilirubin 0.4 mg/dL (0.15-1.2) 06/19/22 19:30 AST 14 U/L (0-32) 06/19/22 19:30 ALT 13 U/L (0-33) 06/19/22 19:30 Alkaline Phosphatase 71 U/L (35-105) 06/19/22 19:30 Creatine Kinase 54 U/L (26-192) 06/19/22 19:30 Troponin T Baseline 9 ng/L (0-10) 06/19/22 19:30 Troponin T 120 Minute 10.70 ng/L (0-10) H 06/19/22 21:20 Delta Troponin T 1.70 ABS# (0-10) 06/19/22 21:20 NT-Pro-B Natriuret Pep 172 pg/mL (0-125) H 06/19/22 19:30 Total Protein 6.5 g/dL (6.6-8.7) L 06/19/22 19:30 Albumin 4.2 g/dL (3.5-5.2) 06/19/22 19:30 Globulin 2.3 g/dL (1.3-4.6) 06/19/22 19:30 TSH 5.10 uIU/mL (0.27-4.20) H 06/19/22 19:30 Urine Color Yellow (Yellow) 06/19/22 21:13 Urine Appearance Clear (CLEAR) 06/19/22 21:13 Urine pH 6.5 (5-7) 06/19/22 21:13 Ur Specific [place] 1.005 (1.005-1.030) 06/19/22 21:13 Urine Protein Neg (Negative) 06/19/22 21:13 Urine Glucose (UA) Norm (Normal) 06/19/22 21:13 Urine Ketones Negative (Negative) 06/19/22 21:13 Urine Blood Neg (Negative) 06/19/22 21:13 Urine Nitrate Negative (Negative) 06/19/22 21:13 Urine Bilirubin Neg (Negative) 06/19/22 21:13 Urine Urobilinogen Norm mg/dL (Negative) 06/19/22 21:13 Ur Leukocyte Esterase 1+ (Negative) H 06/19/22 21:13 Urine RBC None /hpf (0-2) 06/19/22 21:13 Urine WBC 5-10 /hpf (0-5) H 06/19/22 21:13 Ur Squamous Epith Cells None /hpf (0-5) 06/19/22 21:13 Amorphous Sediment Not Reportable 06/19/22 21:13 Urine Bacteria Trace /hpf (NONE) 06/19/22 21:13 Discharge Plan Discharge Patient Disposition: Home Clinical Impression: Palpitations, Essential (primary) hypertension, Acute UTI Condition: Stable Prescriptions: New ciprofloxacin HCl 500 mg tablet 500 mg PO Q12H Qty: 14 0RF No Action triamcinolone acetonide 0.1 % cream 1 applic topical BID PRN (Reason: itching) Qty: 30 1RF Rx Instructions: apply both arms lisinopril 20 mg tablet 40 mg PO DAILY Qty: 180 1RF albuterol sulfate [Proventil HFA] 90 mcg/actuation HFA aerosol inhaler 2 puff INHALATION TID PRN (Reason: shortness of breath or wheezing) Qty: 18 5RF amlodipine 5 mg tablet 5 mg PO DAILY Qty: 90 3RF lisinopril 20 mg tablet 20 mg PO DAILY echinacea 500 mg capsule 760 mg PO .prn Rx Instructions: administer with meals fexofenadine [Martine Allergy] 180 mg tablet 180 mg PO Q24H acetaminophen [Tylenol Extra Strength] 500 mg tablet 500 mg PO BID PRN aspirin [Adult Aspirin Regimen] 81 mg tablet,delayed release (DR/EC) 81 mg PO DAILY zinc 50 mg tablet 50 mg PO DAILY cholecalciferol (vitamin D3) 25 mcg (1,000 unit) capsule 25 mcg PO DAILY magnesium 250 mg tablet 250 mg PO DAILY vitamin A 2,400 mcg capsule 2,400 mcg PO BID Blood Pressure Support 1 tab PO DAILY Rx Instructions: (pt takes instead of lisinopril and chlorthalidone) Discharge Orders: Discharge ED (Routine); Ordered 06/19/22 Ordered By: Terrence Roth Referrals: Cornelius Hansen, PRODUCTION LEADERGaylaC [Primary Care Provider] - Patient Instructions: Chest Pain (ED), Urinary Tract Infection in Women (ED), Hypertension (ED) Activity Restrictions/Additional Instructions: Take your nighttime medications when you get home. Proceed with your angiogram on Monday as scheduled. Return for any problems with chest discomfort, palpitations, shortness of breath syncope or passing out, or any other concerning symptoms. Coding Level of Care Code ED Circuit Tester for Chg Fwd Exam Comprehensive
[2022-06-19 20:17] LABS: Troponin(5th) Baseline 9 ng/L (0-10)
[2022-06-19 20:25] LABS: Alanine Aminotransferase 13 U/L (0-33); Albumin Level 4.2 g/dL (3.5-5.2); Alkaline Phosphatase 71 U/L (35-105); Anion Gap 16.6 (5-19); Aspartate Amino Transferase 14 U/L (0-32); Blood Urea Nitrogen 19 mg/dL (8-23); Calcium 9.3 mg/dL (8.5-10.5); Carbon Dioxide 24 mmol/L (22-29); Chloride 98 mmol/L (98-107); Creatine Phosphokinase 54 U/L (26-192); Globulin 2.3 g/dL (1.3-4.6); Glucose 173 mg/dL (65-115); Magnesium 2.3 mg/dL (1.7-2.3); NT Pro B Type Natriuretic Pept 172 pg/mL (0-125); Osmolality Calculated 286 mOsm/kg (285-295); Phosphorus 3.4 mg/dL (2.5-4.5); Potassium 3.6 mmol/L (3.5-5.1); Sodium 135 mmol/L (136-145); Total Bilirubin 0.4 mg/dL (0.15-1.2); Total Protein 6.5 g/dL (6.6-8.7)
[2022-06-19 20:28] LABS: INR 0.93 (0.8-1.2)
[2022-06-19 20:29] LABS: Partial Thromboplastin Time 25.4 SECONDS (23.9-36.7)
[2022-06-19] MEDS: labetalol 5 mg/mL SDV 20mL 10 MG IVP (21:10)
[2022-06-19 21:48] LABS: Urine Appearance Clear (CLEAR); Urine Color Yellow (Yellow)
--- NOTE | 2022-06-19 21:48 | ECG_ITS ---
[facility] Test Date: 2022-06-19 Pat Name: Ana Cristina Stephens Department: Room: Gender: Female Dye Tank Tender: : 1950 Requested By: Terrence Rosenthal Order Number: [id number] Taylor MD: Halie Marie M.D. Measurements Intervals [place] Rate: 71 P: 57 [place]: 161 QRS: 7 QRSD: 95 T: 111 QT: 410 QTc: 448 Interpretive Statements SINUS RHYTHM MODERATE T-WAVE ABNORMALITY, CONSIDER ANTEROLATERAL ISCHEMIA [-0.1+ mV T-WAVE IN V3-V6] Compared to ECG 06/21/2020 13:29:15 T-wave abnormality now present Possible ischemia now present Electronically Signed On 06-21-2022 12:14:25 ROD MILL OPERATOR by Halie Marie M.D. [id number]
[2022-06-19 21:49] LABS: Add Urine Microscopic? YES; Bilirubin Urine Neg (Negative); Blood Urine Neg (Negative); Glucose Urine UA Norm (Normal); Ketones Urine Negative (Negative); Leukocyte Esterase Urine 1+ (Negative); Nitrate Urine Negative (Negative); Protein Urine Neg (Negative); Specific Gravity, Urine 1.005 (1.005-1.030); Urobilinogen Urine Norm (Negative); pH Urine 6.5 (5-7)
[2022-06-19 21:51] LABS: Add Urine Culture? No; Bacteria Urine TRACE /hpf
== END 2022-06-19 23:20 | disposition home or self-care (01) ==
PROVIDERS: Emergency Provider Emergency Medicine; PCP Nurse Practitioner
DX: N39.0 Urinary tract infection, site not specified (principal); R00.2 Palpitations; I10 Essential (primary) hypertension
CPT/HCPCS: 71045; 80053; 81001; 82550; 83735; 83880; 84100; 84443; 84484; 85025; 85610; 85730; 93005; 96361; 96374; 99285; J3490; J7040

== ENCOUNTER 2022-06-22 08:47 | Observation (INO) | payer MEDICARE, OTHER, SELFPAY ==
[2022-06-22] VITALS (53 sets, daily range): BP systolic 99–188; BP diastolic 49–83; PULSE 55–93; RESP 9–23; TEMP 36.9; O2SAT 58–98; BMI 30.4
--- NOTE | 2022-06-22 06:00 | XACV_ITS ---
Exam Room: 2 Ht: 163 cm Wt: 80 kg BSA: 1.93 m2 Gender: Female : 1950 Any Known Allergies: Other Exam Priority: Routine Procedure(s): Procedure Description: Diagnostic procedure Procedure Description: PCI procedure Procedure Description: Left Heart Catheterization Procedure Description: Left ventriculography Procedure Description: Drug Eluting Coronary Stent Procedure Description: Coronary Angiography Diagnostic Cath Status: Elective Diagnostic Findings * Left main is a medium caliber short vessel with an ostial around 20% narrowing. * The left anterior descending artery is a medium caliber vessel which was found to be tortuous and appears to wrap around the LV apex minimally. It gives off 2 small caliber diagonal branches. The first diagonal branch was found to have diffuse irregular narrowing of around 50 to 70%. The second diagonal branch was found to have around 50% ostial narrowing. The LAD proper was found to have minimal intimal irregularities in the midsegment. * The left circumflex artery is a medium to large caliber vessel which appears to trifurcated proximally, giving off 3 obtuse marginal branches. The proximal segment of the artery before the trifurcation was found to have 20 to 30% eccentric narrowing. One of the obtuse marginal branches are found to have a high-grade around 90% lesion proximally. The second obtuse marginal branch was found to have moderate diffuse disease in the proximal and mid segment. The third obtuse mild branches found to have mild diffuse intimal irregularities. The proximal circumflex artery. * The right coronary artery is a medium caliber vessel with mild diffuse ectasia. The proximal segment of the artery was found to have around 50% segmental narrowing after sinus carlos branch. The mid and distal segment of the artery was found to have diffuse irregular narrowing. The PLV branch of the artery was found to bifurcate distally. One of the bifurcation branches were found to have around 60% tubular narrowing proximally. The PDA branch was found to have mild diffuse disease.. PCI Status: Elective PCI LVEF Assessed: Yes PCI Indication: New Onset Angina <= 2 months Interventional Findings * The mid first obtuse marginal branch was primarily stented with a 2.75 x 8 mm drug-eluting stent. Good angiographic result. Decision for PCI with Surgical Consult: No PCI for Multi-vessel Disease: No Conclusions 1. 72-year-old white female with history of hypertension and dyslipidemia, presenting with complaints of recurrent episodes of chest pain. She had a Myocardial perfusion imaging which revealed elevated transient ischemic dilatation ratio. Initially it was opted to treat her medically. Because of the ongoing worsening of symptoms, in order to further evaluate the coronary status, a cardiac catheterization was recommended. Patient underwent left heart catheterization with left and right coronary angiogram and LV angiogram today. The findings are as follows. 2. 1. Mild left main disease, 20% ostial narrowing. 2. Mild diffuse intimal irregularities in the left anterior descending artery. One of the small caliber diagonal vessels were found to have 50 to 70% diffuse disease. 3. High-grade lesion-90% in one of the obtuse marginal branches.4. Mild to moderate diffuse disease in the right coronary artery. 5. Normal LV ejection fraction of 55%. 6. Left-ventricular diastolic dysfunction with an LVEDP of 24 mmHg. 7. Minimally ectatic ascending aorta with a maximum diameter of 3.4 cm. 3. Patient able angiographic findings, it was thought be appropriate to consider PCI of the obtuse marginal artery lesion. I discussed and reviewed the cardiac catheterization data with Dr. Araiza. Dr. Araiza concurred with this plan and took over further management of this patient. Further details of the PCI, please refer to the report by Dr. Araiza. Interventional RX Recommendation: PCI w/o planned CABG Diagnostic RX Recommendation: PCI w/o planned CABG Ventriculography Ejection Fraction: 55.0 % LV EDP: 24 mmHg Left Ventriculography Findings: * The LV gram was performed in the SERRANO projection. The LV cavity appears to be of normal size. No significant mitral valve prolapse or mitral regurgitation. The left ventricular ejection fraction was around 55%. LVEDP was 24 mmHg. Following the LV angiogram, the LVEDP was 26 mmHg. The ascending aorta was found to be minimally ectatic. The maximum diameter was 3.4 cm. Pressures Phase:Rest AO : / ( -37 ) @ 6:55:00 AM 107 / 55 ( 79 ) @ 7:28:00 AM 152 / 60 ( 97 ) @ 7:38:00 AM 156 / 62 ( 99 ) @ 7:38:00 AM 129 / 61 ( 89 ) @ 7:56:00 AM LV : 145 / 6 / 24 @ 7:37:00 AM 149 / 6 / 28 @ 7:37:00 AM 149 / 6 / 26 @ 7:38:00 AM Valves Phase:DefaultPhase AV : 0.0 @ 8:12:06 AM AV Mean Gradient: 0.0 @ 8:12:06 AM Clinical Evaluation EBL: 5mL-10mL Procedural Details Procedure Consent Obtained. Admit Source: Out Patient. Pre-Procedure Time Out. Identified patient by full name and date of as verbalized by the patient/guarantor. Does the consent match the physician's order: Yes. Accurate & Complete Informed Consent: Yes. Inpatient/Outpatient History & Physical on Chart: Yes. If H&P is completed, is and addenduem needed: No; If yes, is the addendum complete: N/A. Visualize and Verify Site with Patient/Guarantor: N/A. Relevant Radiology Images available: Yes. The risks, benefits, and alternatives of sedation and/or procedure were discussed by physician. The patient agrees to continue. Procedure started. PERRLA. Strong, equal hand administrative support manager bilaterally. Lungs clear x 5 lobes. IV Site on Arrival: 20 gauge in the right anticubital. IV Fluids: 0.9% NaCl at KVO. 0 mL infused prior to director of cardiac cath lab. Pre Procedural Pulses: bilateral radial was 3+. Pre Procedural Pulses: bilateral dorsalis pedis was 3+. Pre Procedural Pulses: bilateral posterior tibial was 1+. Oxygen started at 2liters/min via nasal canula. right radial was prepped with chloroprep then draped in the usual sterile fashion. right groin was prepped with chloroprep then draped in the usual sterile fashion. Physician notified. Correct patient, site and procedure confirmed by cath team. [facility] Clinical Fraility Score: 3: Managing Well. Public Relations Coordinator Indications: Suspected CAD. Chest Pain Symptom Assessment: Atypical Angina. Cardiovascular Instability: No,. Physician arrived. Physician scrubbed in. Immediate Pre-Procedure Time Out. Correct Patient: Yes; Correct Procedure: Yes; Correct Site: Yes; Correct Patient Position: Yes; Correct Supplies: Yes; Dried Flammable Prep: Yes; Blood Products Available: N/A;. Lidocaine 1% infiltrated to the right radial. Arterial access obtained. A 5 cameroonian Farhan catheter in over wire. exchange wire out. Multiple views taken of left coronary artery. Catheter redirected to the RCA. farhan out over exchange wire. A 5 cameroonian JR4 catheter in over wire. exchange wire out. Multiple views taken of right coronary artery. dr araiza arrived to view films. Catheter out. A 5 cameroonian Angled Pig catheter in over wire. wire out. EDP Sample taken: LV 145/6,24; HR: 58 BPM; SpO2: 99%. LV gram performed in SERRANO @ 10 mL/second for a total of 30 mL. EDP Sample taken: LV 149/6,28; HR: 60 BPM; SpO2: 99%. Pullback taken: LV 149/6,26; AO 152/60(97); Mean: 0mmHg, Peak to Peak: 0mmHg, SEP: 5sec/min; HR: 59 BPM; SpO2: 99%. dr wylie scrubbed out. catheter hooked to Normal Saline flush at KVO to maintain patency. Catheter inserted over the exchange wire. 6 cameroonian XB 3 guide catheter was inserted over the wire. exchange wire out. Whitt guidewire was advanced through the guide catheter to lesion in the OM. Inflation Number : 1 Jessie Ortega SHERYL 2.75X8 KEE -Lot Number# [id number] exp date 07/08/2024 was prepped and advanced across the 1st Ob Roxy. The stent was deployed at 12 SERVANDO for 0:26 seconds. results checked Stent balloon out over wire. Wire out. Guide catheter out. dr tamubbed out. TR band placed. Hemostasis obtained. Post Procedure: Pulses reassessed and unchanged. PERRLA. Strong, equal hand administrative support manager bilaterally. No VTE prophylaxis required. Medication's Wasted: Lidocaine 1% = 3 mL. Medication's Wasted: Nitro = 39.8 mg. Medication's Wasted: Other = 25 mcg. Medication's Wasted: Heparin = 1000 units. Total IV fluids: 331 mL. Estimated blood loss: 5mL-10mL. Complications: none. Responsiveness - Normal response to verbal stimuli; alert and oriented, PERRLA. Airway - Unaffected, no intervention required; spontaneous ventilation. Circulation: W/N/L, pulses unchanged. Nausea/Vomiting: No. Procedure completed. Patient transferred by wheelchair to CPRU. PCI Indication: CAD (without ischemic symptoms). Vital chart was stopped. Access Site Site: Right Radial artery Sheath Size: 6 Fr Hemostasis Success: Unsuccessful Procedure Medications Start: 7:08 AM Stop: 7:08 AM Medication: Versed Amount: 1 mg Route: I.V. Start: 7:08 AM Stop: 7:08 AM Medication: Fentanyl Amount: 50 mcg Route: I.V. Start: 7:15 AM Stop: 7:15 AM Medication: Versed Amount: 1 mg Route: I.V. Start: 7:17 AM Stop: 7:17 AM Medication: Verapamil Amount: 5 mg Route: I.A. Start: 7:18 AM Stop: 7:18 AM Medication: Nitrogylcerin Amount: 200 mcg Route: I.A. Start: 7:19 AM Stop: 7:19 AM Medication: Heparin Amount: 5000 units Route: I.V. Start: 7:31 AM Stop: 7:31 AM Medication: Versed Amount: 1 mg Route: I.V. Start: 7:48 AM Stop: 7:48 AM Medication: Versed 1 mg and Fentanyl 25 mcg I, the attending physician, have reviewed and verified all procedure medications. Yes, all medications given per verbal order History/Risk Factors Hypertension: Yes Dyslipidemia: Yes Peripheral Arterial Disease (PAD): No Myocardial Infarction ([place]): No Obesity: No Tobacco Use: Never Prior Interventions PCI: No CABG: No Valve Surgery: No Report Signatures Diagnostic Workflow Finalized by Dr Juventino Wylie MD [facility] on 06/22/2022 06:19 PM Interventional Workflow Finalized by Dr. Noam Araiza MD on 06/22/2022 08:15 AM
[2022-06-22] MEDS: diphenhydrAMINE 50 mg Capsule PO (06:18)
--- NOTE | 2022-06-22 07:02 | W.PM.OPSUD ---
Surgery/Procedure H&P Update DATE OF PROCEDURE: June 22, 2022 DATE H&P PERFORMED: 06/14/22 H&P UPDATE INFORMATION: I have reviewed H&P completed within last 30 days, I have examined patient prior to procedure and No changes to prior documentation PREOP DIAGNOSIS: suspected CAD PRIMARY INDICATION FOR PROCEDURE: Multiple risk factors for coronary artery disease/chest pain/abnormal Myocardial perfusion imaging PLANNED PROCEDURE: Operation Date: 06/22/22 07:00 [place] Procedures [place] [id number] Left Heart Catheterization R94.39,R07.9,I25.9(Left) - Juventino Wylie MD PATIENT REASSESSED PRIOR TO SEDATION, WITH NO CHANGE NOTED: Yes PHYSICAL EXAM: alert, oriented x 3, clear to auscultation bilaterally and regular rate & rhythm AIRWAY EVAL/ANESTHESIA PLAN: normal airway, see other exam findings, ASA II, Monitored Anesthesia, Local Anesthesia, Risks, benefits & alternatives of sedation and/or procedure discussed and Patient agrees to continue as planned
[2022-06-22] MEDS: sodium chloride 0.9% 1,000 ML 100 ML IV (08:40)
--- NOTE | 2022-06-22 09:12 | PC.NURSE ---
Around 0845: Transfer orders received. Report given to STEVE Cordero. TR Band in place to right wrist, no drainage or hematoma. Vitals stable. No c/o pain or discomfort. Will continue to monitor.
--- NOTE | 2022-06-22 09:13 | PC.NURSE ---
received from cardiac medical laboratory technician at 0840 via w/c.report received.pt is alert and oriented x 4.denies pain.sr on monitor.bp stable.right wrist with tr bands x 2 on and inflated.slight soft bruising noted proximal to second tr band.palpable radial pulse noted distal to tr band.right hand is cool to touch but with brisk capillary refill.instructed in activity restrictions s/p radial artery procedure..and instructed to notify staff for any bleeding,pain,numbness,sob...or for any concerns at all.pt verb understanding of instructions
[2022-06-22] MEDS: aspirin 81 mg EC Tablet PO (10:08)
--- NOTE | 2022-06-22 17:16 | PC.NURSE ---
attempting to remove tr bands...slowly removing air...2nd tr band removed at 1200..then soft bruising noted..so reapplied at 1400.finally removed at 1500.1st tr band finally deflated to 2 cc,then developed bruising at 1600.air inserted to [address] agosto aware.
[2022-06-22] MEDS: acetaminophen 500 mg Tablet PO (19:30)
--- NOTE | 2022-06-22 20:26 | PC.NURSE ---
Received bedside report from STEVE Cordero. Patient is s/p [facility] with right radial access. Noted bruising to the site. Previous hematoma resolved at this time. Right hand is warm to touch with pulses present. Instructed patient on site care. Patient verbalized complete understanding. Will continue to monitor.
[2022-06-22] MEDS: lisinopril 20 mg Tablet PO (20:41)
--- NOTE | 2022-06-22 23:06 | PC.NURSE ---
TR band removed from right wrist. Bruising observed. No other indication of continued bleeding or hematoma formation observed. Covered site with 2x2 and coban. Reinforced instruction regarding site care. Patient verbalized complete understanding. Will continue to monitor.
[2022-06-23] VITALS (9 sets, daily range): BP systolic 142–165; BP diastolic 67–81; PULSE 63–77; RESP 15–20; TEMP 36.6; O2SAT 88–96
[2022-06-23] MEDS: cholecalciferol (vitamin D3) 1,000 unit Tablet 1000 UNIT PO (07:59)
[2022-06-23] MEDS: aspirin 81 mg EC Tablet PO (07:59)
[2022-06-23] MEDS: amlodipine 5 mg Tablet PO (07:59)
[2022-06-23] MEDS: clopidogrel 75 mg Tablet PO (07:59)
--- NOTE | 2022-06-23 08:51 | P.PN_ITS ---
Subjective Subjective: Patient had a cardiac catheterization yesterday. She was found to have a high-grade lesion in the obtuse marginal branch of the circumflex artery. She underwent PCI of this lesion by Dr. Araiza. She had an uneventful postprocedure course. Currently she is doing okay with no chest pain or chest tightness. Medications: Medication Review Details: Current Medications Acetaminophen (Acetaminophen 500 Mg Tablet) 500 mg PO BID PRN PRN Reason: Pain Last Admin: 06/22/22 19:30 Dose: 500 mg Albuterol Sulfate (Albuterol 8 Gm Mdi) 2 puff INHALATION TID PRN PRN Reason: shortness of breath or wheezing Amlodipine Besylate (Amlodipine 5 Mg Tablet) 5 mg PO DAILY [facility] Last Admin: 06/23/22 07:59 Dose: 5 mg Aspirin (Aspirin 81 Mg Ec Tablet) 81 mg PO DAILY [facility] Last Admin: 06/23/22 07:59 Dose: 81 mg Clopidogrel Bisulfate (Clopidogrel 75 Mg Tablet) 75 mg PO DAILY [facility] Last Admin: 06/23/22 07:59 Dose: 75 mg Lisinopril (Lisinopril 20 Mg Tablet) 20 mg PO BEDTIME [facility] Last Admin: 06/22/22 20:41 Dose: 20 mg Nitroglycerin (Nitroglycerin 0.4 Mg Sublingual Tablet) 0.4 mg SUBLINGUAL Q5M PRN PRN Reason: CHEST PAIN (Echinacea 500 Mg (Capsule)) 760 mg PO PRN PRN PRN Reason: ALLERGIES (Magnesium 250 Mg (Tablet)) 250 mg PO DAILY [facility] Last Admin: 06/23/22 08:21 Dose: Not Given (Vitamin A 2,400 Mcg (Capsule)) 2,400 mcg PO BID [facility] Last Admin: 06/23/22 08:21 Dose: Not Given Vitamin D (Cholecalciferol (Vitamin D3) 1,000 Unit Tablet) 1,000 unit PO DAILY [facility] Last Admin: 06/23/22 07:59 Dose: 1,000 unit Vitals/I&O/Wt Last Vital Signs Temp 97.9 F 06/23/22 07:12 Pulse 77 06/23/22 08:51 Resp 18 06/23/22 07:12 BP 161/81 06/23/22 08:51 Pulse Ox 93 06/23/22 08:51 O2 Del Method 06/23/22 08:51 1106/23/22 06/23/22 22:59 06:59 14:59 Intake Total 1240 / 1240 620 / 1860 Balance 1240 / 1240 620 / 1860 Weight last 48 hrs Weight 177 lb Physical Exam Narrative: GENERAL: The patient is alert and oriented times three. Not in any acute distress. HEENT: No significant pallor, icterus or lymphadenopathy.Oral cavity: There are no mucous membrane lesions. NECK: Trachea appears to be central. No masses noted. No JVD or thyromegaly appreciated. RESPIRATORY: Chest is symmetrical. No intercostals muscle retraction or any accessory muscle activation. There is no chest wall tenderness. Breath sounds are heard bilaterally. No rales or rhonchi heard. No evidence of any consolidation. BREASTS: Deferred. HEART: The heart sounds are normal. No S3 or S4. No significant murmurs. No pericardial rub ABDOMEN: No vessel pulsations or distention. No tenderness. No organomegaly appreciated. Bowel sounds are normally heard. : Deferred. RECTAL: Deferred. LYMPHATIC: No lymphadenopathy noted in the neck. EXTREMITIES: The radial arterial puncture site has no hematoma bleeding. Good distal pulses. MUSCULOSKELETAL: No acute joint deformities or swelling SKIN: There are no significant rashes or ecchymosis NEUROPSYCHIATRIC: The patient is alert and oriented x3. Appears to be in a good mood. No tremors or rigidity noted. Data : 06/23/22 09:01 Other Labs: Laboratory Last Values Sodium 136 mmol/L (136-145) 06/23/22 09:01 Potassium 3.3 mmol/L (3.5-5.1) L 06/23/22 09:01 Chloride 98 mmol/L (98-107) 06/23/22 09:01 Carbon Dioxide 28 mmol/L (22-29) 06/23/22 09:01 Anion Gap 13.3 (5-19) 06/23/22 09:01 BUN 11 mg/dL (8-23) 06/23/22 09:01 Creatinine 0.7 mg/dL (0.5-0.9) 06/23/22 09:01 GFR Calculation Not Reportable 06/23/22 09:01 Glucose 174 mg/dL (65-115) H 06/23/22 09:01 Calculated Osmolality 286 mOsm/kg (285-295) 06/23/22 09:01 Calcium 9.3 mg/dL (8.5-10.5) 06/23/22 09:01 A&P Assessment and plan (1) Atherosclerotic heart disease of [place] coronary artery with other forms of angina pectoris: Patient is s/p cardiac catheterization. High-grade lesion in the obtuse marginal artery, status post PCI. Mild to moderate diffuse disease in the other vessels. Patient is currently remaining stable. We will continue on the c urrent medications. (2) Carotid artery occlusion without infarction: Currently has no specific symptoms. We will continue with the monitoring and risk reducing measures. (3) Dyslipidemia: Patient has a history of intolerance to Lipitor. If she never been tried on any other statin drugs, I may try her on a smaller dose of Crestor. (4) Chest pain: Patient has not had recurrence of chest pain. At this point, she may continue on the current medications. (5) Hypokalemia: The hypokalemia will be corrected Plan If she continues remain stable, may be discharged home today. Will be seen at [facility] in a week by the nurse practitioner. We will discuss about the cardiac rehab and her medications again at that time. Importance of l ifestyle modification was discussed with the patient detail which is understood well. In the event of the patient developing any unusual chest pain, palpitations, SOB or any other new symptoms, advised to contact our office. I may see her back in the office in 2 months Attestations Medical Necessity Statement*: Discharge home today Coding Level of Care Code Acute [place] Product Consultant for Angela Fwd Exam Expanded Problem Focused Medical Decision Making Moderate Complexity Diagnoses Atherosclerotic heart disease of [place] coronary artery with other forms of angina pectoris I25.118 Carotid artery occlusion without infarction I65.29 Dyslipidemia E78.5 Chest pain R07.9 Hypokalemia E87.6
[2022-06-23 09:29] LABS: Anion Gap 13.3 (5-19); Blood Urea Nitrogen 11 mg/dL (8-23); Calcium 9.3 mg/dL (8.5-10.5); Carbon Dioxide 28 mmol/L (22-29); Chloride 98 mmol/L (98-107); Creatinine Clr Calc Pharmacy 66.1181; Glucose 174 mg/dL (65-115); Osmolality Calculated 286 mOsm/kg (285-295); Potassium 3.3 mmol/L (3.5-5.1); Sodium 136 mmol/L (136-145)
[2022-06-23] MEDS: potassium chloride ER 20 mEq Tablet PO (10:19)
--- NOTE | 2022-06-23 10:19 | PC.CHAP ---
Pastoral Care Encounter/Spiritual Assessment Type of Contact [] Declined track moving machine operator visit [] Patient/Family/Request visit [] Outpatient visit [] Follow-up visit [] Physician referral [] Code/Alert [x] Routine visit [] Staff referral [] Actively dying [] Patient sleeping [] Family support [] [] Out of room [] Palliative care [] [x] Receiving care in room [] Pre-surgical visit [] Trauma [] Long length of stay [] ICU visit [] Other: Relational/Emotional Strength [x] Patient feels connected with others/family/visitors/staff [] Distress [] Loneliness/isolation [] Abandonment Spirituality of Patient [x] Person of Syeda [] Attends Yarsanism of their Syeda [x] Believes in Prayer [] Reads Bible or Anabaptist materials [] There are Spiritual issues to be addressed Consultant Internship Interventions [x] Prayer [x] Active listening [x] Non-anxious presence [x] Spiritual/emotional support [] Crisis/trauma care [x] Spiritual counseling [] Bereavement support [] Provided bereavement packet [] Provided Bible/devotional materials [] Provided toy/stuffed animal, coloring book to patient or family member [] Provided Communion [] Anointing/[place] [] Salvation [x] Completed spiritual assessment [] Other: Impact on Illness or Injury [] Angry [] Fearful [] Anxious [] Often cries [] Exhaustion [] Unable to work [] Unable to attend christian [] Unable to walk/stand [] Unable to read [] Unable to drive [] Unable to eat/drink [] Unable to sleep [] Unable to be with family [] Patient intubated [] Other: Summary had tests stents proceeduer feels good has a good attitude going home Time spent with patient 10 mins
[2022-06-23] MEDS: acetaminophen 500 mg Tablet PO (10:21)
--- NOTE | 2022-06-23 11:12 | PC.NURSE ---
Discharge Note Patient discharged to home via private vehicle accompanied by dgtr. Discharge instructions reviewed with patient and/or community engagement representative. Mobile pharmacy medications and/or prescriptions provided. Belongings/home medications returned.
--- NOTE | 2022-06-23 11:12 | PC.NURSE ---
post angiogram home care instructed Education provided on pt's act.restriction, wound care and s/s of bleeding and infection and what to do post angiogram. educated pt on her new meds, dosing, timing, actions and possible s/e.
== END 2022-06-23 11:10 | disposition home or self-care (01) ==
LOC: CSU 08:48
PROVIDERS: Internal Medicine Cardiovascular Disease; Admitting Provider Internal Medicine Cardiovascular Disease; PCP Nurse Practitioner; Visit Provider Internal Medicine Cardiovascular Disease
DX: I25.118 Atherosclerotic heart disease of native coronary artery with other forms of angina pectoris (principal); I65.21 Occlusion and stenosis of right carotid artery; E78.5 Hyperlipidemia, unspecified; R07.9 Chest pain, unspecified; E87.6 Hypokalemia; I10 Essential (primary) hypertension
CPT/HCPCS: 36415; 80048; 93458; 96360; 96361; 99152; 99153; C1769; C1874; C1887; C1894; C9600; G0378; J1644; J2250; J3010; J3490; J3535; J7030; Q0163; Q9967

== ENCOUNTER → 2022-07-01 09:13 | Outpatient (BNVA) | payer MEDICARE, OTHER, SELFPAY | PROVIDERS: PCP Nurse Practitioner; Visit Provider Nurse Practitioner Family | DX: I25.10 Atherosclerotic heart disease of native coronary artery without angina pectoris (principal); I10 Essential (primary) hypertension | CPT/HCPCS: 36415; 80048; 99214 ==

== ENCOUNTER → 2022-07-18 13:08 | Outpatient (BNVA) | payer MEDICARE, OTHER, SELFPAY | PROVIDERS: PCP Nurse Practitioner; Visit Provider Nurse Practitioner Family | DX: R39.9 Unspecified symptoms and signs involving the genitourinary system (principal) | CPT/HCPCS: 81000 ==

== ENCOUNTER → 2022-09-08 14:26 | Outpatient (BNVA) | payer MEDICARE, OTHER, SELFPAY | PROVIDERS: PCP Nurse Practitioner; Visit Provider Nurse Practitioner Family | DX: N39.0 Urinary tract infection, site not specified (principal); I25.118 Atherosclerotic heart disease of native coronary artery with other forms of angina pectoris; I65.29 Occlusion and stenosis of unspecified carotid artery; E78.5 Hyperlipidemia, unspecified; I10 Essential (primary) hypertension; M79.605 Pain in left leg | CPT/HCPCS: 81000 ==

== ENCOUNTER → 2022-09-21 13:55 | Outpatient (BNVA) | payer MEDICARE, OTHER, SELFPAY | PROVIDERS: PCP Nurse Practitioner; Visit Provider Internal Medicine Cardiovascular Disease | DX: I25.118 Atherosclerotic heart disease of native coronary artery with other forms of angina pectoris (principal); I65.29 Occlusion and stenosis of unspecified carotid artery; E78.5 Hyperlipidemia, unspecified; I10 Essential (primary) hypertension; M79.605 Pain in left leg | CPT/HCPCS: 99214 ==

== ENCOUNTER → 2022-09-23 10:03 | Outpatient (BNVA) | payer MEDICARE, OTHER, SELFPAY | PROVIDERS: PCP Nurse Practitioner; Visit Provider Nurse Practitioner Family | DX: N39.0 Urinary tract infection, site not specified (principal) | CPT/HCPCS: 81000 ==

== ENCOUNTER 2022-10-07 14:03 | Outpatient (CLI) | payer MEDICARE, OTHER, SELFPAY ==
--- NOTE | 2022-10-07 14:30 | CT_ITS ---
WS: [id number] CT ANGIOGRAM CEREBRAL AND CAROTID ARTERIES HISTORY: carotid stenosis TECHNIQUE: CT angiogram is performed of the carotid and cerebral arteries. During arterial injection imaging is obtained from the skull vertex to the aortic arch in 1.25 mm imaging. Coronal and sagittal reformats are submitted. Additional multi planar reformats of the carotid and cerebral arteries are submitted, MIP imaging also reviewed. NASCET criteria utilized. [facility] at least one of these dose optimization techniques: automated exposure control; mA and/or kV adjust ment per patient size (includes targeted exams where dose is matched to clinical indication); or iter ative reconstruction. CONTRAST: Omnipaque 350; 100 mL IV. DLP: 1319.00 mGy.cm COMPARISON: Carotid ultrasound 06/01/[address]: Mild atrophy and small vessel ischemic disease. No mass effect or hemorrhage. No infarct. Carotid Angiogram: Right carotid: Common carotid artery: Mild stenosis at the origin from the innominate. Internal carotid artery: ICA is occluded at the origin. There is dense calcified plaque in the periph bisi and thrombus centrally. Unsuccessful attempt at recannulization. There are a few areas of blush-l david enhancement within the RIGHT ICA thrombus but not persistent. External carotid artery: Patent. Left carotid: Common carotid artery: Arises normally from the aorta. No significant plaque or stenosis. Internal carotid artery: Dense calcified plaque at the origin. There is at least 50% stenosis. External carotid artery: Patent. Right vertebral artery: Unremarkable. Left vertebral artery: Small amount of plaque at the origin of the vertebral artery. Subclavian arteries: No stenosis or significant abnormality. Upper thorax: Moderate atherosclerotic plaque within the thoracic aorta through the arch. Benign gran uloma RIGHT lung apex. Thyroid gland: Mildly enlarged RIGHT thyroid with small subcentimeter nodules. Osseous structures: Unremarkable. CEREBRAL ANGIOGRAM: Intracranial vertebral arteries: Normal with no significant atherosclerosis. Basilar artery: No significant stenosis or occlusion. No aneurysm. Intracranial Internal carotid arteries: Obstructed RIGHT intracranial carotid artery. Scattered plaqu e in the LEFT intracranial carotid artery with at least 50% stenosis of the cavernous sinuses. Middle cerebral arteries: Middle cerebral arteries are both patent. RIGHT MCA is opacified via the RI GHT posterior communicating artery. The LEFT anterior communicating artery also is patent. Small aileen guanako but patent RIGHT MCA. No aneurysm. Normal LEFT MCA. Anterior cerebral arteries and ACOM: Patent. Posterior cerebral arteries and PCOM's: Normal caliber. RIGHT posterior communicating artery is paten t. The LEFT is hypoplastic or absent. Dural venous sinuses are normally enhancing. Mastoid air cells: Normal. Paranasal sinuses: Small amount mucoperiosteal thickening in the RIGHT sphenoid sinus. Calvarium: Normal. CT/CT angio headneck* [id number] IMPRESSION: 1. Complete occlusion RIGHT cervical ICA. Occlusion is new since the prior ult rasound of 06/01/2022. 2. Small caliber but patent RIGHT MCA. RIGHT MCA being vascularized by and int act RIGHT posterior communicating artery and also the anterior communicating ar phillip is patent. 3. 50-60% stenosis origin LEFT cervical ICA. Not significantly changed since t he prior study. 4. Moderate atherosclerosis intracranial LEFT cavernous carotid artery.
[2022-10-07] MEDS: iohexol 350 mg/mL 500 mL Btl (per mL) IV (14:57)
[2022-10-07 15:01] LABS: Blood Urea Nitrogen 19 mg/dL (8-23)
== END 2022-10-07 14:04 | disposition home or self-care (01) ==
PROVIDERS: PCP Nurse Practitioner; Visit Provider Internal Medicine Cardiovascular Disease
DX: I65.23 Occlusion and stenosis of bilateral carotid arteries (principal)
CPT/HCPCS: 70496; 70498; 82565; 84520; 99214; Q9967

== ENCOUNTER 2022-10-20 06:02 | Outpatient (CLI) | payer MEDICARE, OTHER, SELFPAY ==
--- NOTE | 2022-10-20 06:15 | USCV_ITS ---
Ana Cristina Stephens Age: 72 Gender: F : 1950 Exam Date: 10/20/2022 06:12 Ordering Phys: Juventino Wylie MD ([email or web address]/[email or web address]) Technologist: Marylu Rosales Exam Location: [facility] [place] Indication: LT LEG PAIN WITH DECREASED PULSES Risk Factors: DM AND HISTORY OF PRIOR CARDIAC STENT Previous Vascular Surgery: CARDIAC [id number] RIGHT LEFT BP: 120.0 / 45.00 BP: 140.0/ 52.00 0 0 Waveform Velocity (cm/s) Velocity (cm/s) Waveform Biphasic 98.5 Iliac Prox 162.6 Biphasic Biphasic 115.3 Iliac Mid 112.7 Biphasic Biphasic 78.1 Iliac Distal 117.0 Biphasic Biphasic 50.6 CAR SANDER 66.8 Biphasic Biphasic 109.8 SFA Prox 125.5 Biphasic Biphasic SFA Mid Biphasic 117.0 171.8 Biphasic 134.1 SFA Dist 148.6 Biphasic Biphasic 79.9 POP 117.0 Biphasic Biphasic 33.8 SHIP KEEPER 78.5 Biphasic Biphasic 24.7 DPA 21.1 Biphasic 0.7 MATTIE 0.9 FINDINGS RT SHIP KEEPER 90 RT DPA 100 LT SHIP KEEPER 130 LT DPA 110 Mild to moderate diffuse plaque in the right iliac and femoral arteries . Resting MATTIE of 0.7 Mild to moderate diffuse plaque in the iliac and femoral arteries on the left side. Resting MATTIE of 0.9 on the left side CONCLUSIONS Normal resting ABIs, suggesting mild peripheral artery disease on the left side and moderate peripheral artery disease on the right side(0.9 and 0.7 respectively) Doppler velocity features suggesting sluggish flow in the dorsalis pedis arteries bilaterally. Consider exercise MATTIE, if clinically indicated . No similar previous studies are available for comparison Dr Juventino Wylie MD [facility] (Electronically Signed) Final Date: 22 October 2022 17:21 S
== END 2022-10-20 06:03 | disposition home or self-care (01) ==
LOC: RAD 06:04
PROVIDERS: PCP Nurse Practitioner; Visit Provider Internal Medicine Cardiovascular Disease
DX: M79.605 Pain in left leg (principal)
CPT/HCPCS: 93925

== ENCOUNTER → 2022-11-02 10:51 | Outpatient (BNVA) | payer MEDICARE, OTHER, SELFPAY | PROVIDERS: PCP Nurse Practitioner; Visit Provider Nurse Practitioner Family | DX: J02.9 Acute pharyngitis, unspecified (principal) | CPT/HCPCS: 87071; 87880 ==

== ENCOUNTER → 2022-11-16 14:36 | Outpatient (BNVA) | payer MEDICARE, OTHER, SELFPAY | PROVIDERS: PCP Nurse Practitioner; Visit Provider Otolaryngology | DX: H61.23 Impacted cerumen, bilateral (principal); R26.81 Unsteadiness on feet; I65.29 Occlusion and stenosis of unspecified carotid artery; S03.00XS Dislocation of jaw, unspecified side, sequela; H92.09 Otalgia, unspecified ear; X58.XXXS Exposure to other specified factors, sequela | CPT/HCPCS: 69210; 99204 ==

== ENCOUNTER → 2023-03-21 12:46 | Outpatient (BNVA) | payer MEDICARE, OTHER, SELFPAY | PROVIDERS: PCP Nurse Practitioner; Visit Provider Nurse Practitioner Family | DX: I25.118 Atherosclerotic heart disease of native coronary artery with other forms of angina pectoris (principal); I65.29 Occlusion and stenosis of unspecified carotid artery; I10 Essential (primary) hypertension | CPT/HCPCS: 99214 ==

== ENCOUNTER → 2023-04-13 13:49 | Outpatient (BNVA) | payer MEDICARE, OTHER, SELFPAY | PROVIDERS: PCP Family Medicine; Visit Provider Family Medicine | DX: R30.0 Dysuria (principal); I10 Essential (primary) hypertension; E55.9 Vitamin D deficiency, unspecified; E78.2 Mixed hyperlipidemia; R73.9 Hyperglycemia, unspecified | CPT/HCPCS: 80053; 80061; 81000; 82306; 83036; 83721; 84443; 87086 ==

== ENCOUNTER → 2023-05-02 15:37 | Outpatient (BNVA) | payer MEDICARE, OTHER, SELFPAY | PROVIDERS: PCP Family Medicine; Visit Provider Dermatology | DX: L57.0 Actinic keratosis (principal); L57.8 Other skin changes due to chronic exposure to nonionizing radiation; D18.01 Hemangioma of skin and subcutaneous tissue; L81.4 Other melanin hyperpigmentation; D48.5 Neoplasm of uncertain behavior of skin | CPT/HCPCS: 11102; 17000; 69100; 99213 ==

== ENCOUNTER → 2023-05-11 09:14 | Outpatient (BNVA) | payer MEDICARE, OTHER, SELFPAY | PROVIDERS: PCP Family Medicine; Visit Provider Family Medicine | DX: N39.0 Urinary tract infection, site not specified (principal) | CPT/HCPCS: 81000; 87086 ==

== ENCOUNTER 2023-06-12 11:00 | Outpatient (CLI) | payer MEDICARE, OTHER, SELFPAY | END 2023-06-12 11:01 | disposition home or self-care (01) | LOC: SLEEP 06-13 09:42 | PROVIDERS: PCP Family Medicine; Visit Provider Family Medicine | DX: G47.33 Obstructive sleep apnea (adult) (pediatric) (principal) | CPT/HCPCS: G0399 ==

== ENCOUNTER → 2023-09-14 09:49 | Outpatient (BNVA) | payer MEDICARE, OTHER, SELFPAY | PROVIDERS: PCP Family Medicine; Visit Provider Podiatrist Foot & Ankle Surgery | DX: M79.671 Pain in right foot (principal); M76.61 Achilles tendinitis, right leg; M24.571 Contracture, right ankle | CPT/HCPCS: 73630; 99203 ==

== ENCOUNTER 2023-09-27 09:25 | Outpatient (RCR) | payer MEDICARE, OTHER, SELFPAY | END 2023-10-12 23:59 | disposition home or self-care (01) | LOC: SPT 09:25 | PROVIDERS: PCP Podiatrist Foot & Ankle Surgery; Visit Provider Podiatrist Foot & Ankle Surgery | DX: M76.61 Achilles tendinitis, right leg (principal) | CPT/HCPCS: 97035; 97110; 97140; 97161 ==

== ENCOUNTER → 2023-10-10 10:25 | Outpatient (BNVA) | payer MEDICARE, OTHER, SELFPAY | PROVIDERS: PCP Family Medicine; Visit Provider Podiatrist Foot & Ankle Surgery | DX: M76.61 Achilles tendinitis, right leg (principal); M24.571 Contracture, right ankle; Z46.89 Encounter for fitting and adjustment of other specified devices | CPT/HCPCS: 97760; 99213; L4397 ==

== ENCOUNTER 2023-10-10 14:26 | Outpatient (CLI) | payer MEDICARE, SELFPAY | END 2023-10-10 14:27 | disposition home or self-care (01) | LOC: SPT 14:27 | PROVIDERS: PCP Family Medicine; Visit Provider Podiatrist Foot & Ankle Surgery | DX: Z46.89 Encounter for fitting and adjustment of other specified devices (principal); M24.571 Contracture, right ankle; M76.61 Achilles tendinitis, right leg | CPT/HCPCS: 97760; L4397 ==

== ENCOUNTER 2023-10-13 06:00 | Outpatient (RCR) | payer MEDICARE, OTHER, SELFPAY | END 2023-10-30 23:59 | disposition home or self-care (01) | LOC: SPT 06:00 | PROVIDERS: PCP Family Medicine; Visit Provider Podiatrist Foot & Ankle Surgery | DX: M76.61 Achilles tendinitis, right leg (principal) | CPT/HCPCS: 97035; 97110; 97140 ==

== ENCOUNTER → 2023-10-16 14:29 | Outpatient (BNVA) | payer MEDICARE, OTHER, SELFPAY | PROVIDERS: PCP Family Medicine; Visit Provider Internal Medicine Cardiovascular Disease | DX: R07.9 Chest pain, unspecified (principal); I25.118 Atherosclerotic heart disease of native coronary artery with other forms of angina pectoris; E78.2 Mixed hyperlipidemia; I10 Essential (primary) hypertension; I65.22 Occlusion and stenosis of left carotid artery; I73.9 Peripheral vascular disease, unspecified; R94.31 Abnormal electrocardiogram [ECG] [EKG] | CPT/HCPCS: 93005; 99214 ==

== ENCOUNTER 2023-10-23 07:42 | Outpatient (CLI) | payer MEDICARE, OTHER, SELFPAY ==
--- NOTE | 2023-10-23 07:46 | MM_ITS ---
WS: [id number] BILATERAL SCREENING DIGITAL TOMOSYNTHESIS MAMMOGRAM WITH CAD HISTORY: breast cancer screening COMPARISON: 12/23/2020 and 03/03/2016 Bilateral CC and MLO views with tomosynthesis and synthetic mammography submitted. Computer aided det ection analyzed. Breast composition: There are scattered areas of fibroglandular density. No suspicious masses, microc alcifications or architectural distortion. Moderate bilateral breast arterial calcifications. IMPRESSION: MM/[place] [id number] BI-RADS: 2-Benign FOLLOW UP: 1 Year Follow-up
== END 2023-10-23 07:43 | disposition home or self-care (01) ==
LOC: RAD 07:42
PROVIDERS: PCP Family Medicine; Visit Provider Family Medicine
DX: Z12.31 Encounter for screening mammogram for malignant neoplasm of breast (principal)
CPT/HCPCS: 77063; 77067

== ENCOUNTER 2023-12-05 14:24 | Outpatient (CLI) | payer MEDICARE, OTHER, SELFPAY ==
--- NOTE | 2023-12-05 14:28 | XRR_ITS ---
PROCEDURE INFORMATION: Exam: XR Lumbosacral Spine Exam date and time: 12/05/2023 2:37 PM Age: 73 years old Clinical indication: Low back pain; Additional info: Chronic low back pain TECHNIQUE: Imaging protocol: Radiologic exam of the lumbosacral spine. Views: 2 or 3 views. COMPARISON: CT abdomen pelvis w con* [id number] 11/22/2018 1:18 PM FINDINGS: Bones/joints: No evidence of acute fracture or subluxation. Moderate multilevel spondylosis of the lumbar spine with facet arthrosis and osteophytosis. Mild grade 1 anterolisthesis of L4 on L5 secondary to facet arthrosis. The sacrum and coccyx are partially obscured by bowel gas/stool. Soft tissues: Grossly unremarkable. There are dense atherosclerotic calcifications of the abdominal aorta. XR/XR lumbar spine 2-3V* [id number] IMPRESSION: 1. No evidence of acute fracture or subluxation of the lumbar spine. Consider correlation with follow-up outpatient MRI if there is concern for neural impingement.
== END 2023-12-05 14:25 | disposition home or self-care (01) ==
LOC: RAD 14:26
PROVIDERS: PCP Family Medicine; Visit Provider Family Medicine
DX: M54.50 Low back pain, unspecified (principal); G89.29 Other chronic pain
CPT/HCPCS: 72100

== ENCOUNTER → 2023-12-14 09:41 | Outpatient (BNVA) | payer MEDICARE, OTHER, SELFPAY | PROVIDERS: PCP Family Medicine; Visit Provider Internal Medicine Cardiovascular Disease | DX: I10 Essential (primary) hypertension (principal); I25.118 Atherosclerotic heart disease of native coronary artery with other forms of angina pectoris; I65.22 Occlusion and stenosis of left carotid artery; I73.9 Peripheral vascular disease, unspecified; E78.2 Mixed hyperlipidemia | CPT/HCPCS: 99214 ==

== ENCOUNTER 2023-12-22 14:40 | Outpatient (CLI) | payer MEDICARE, SELFPAY ==
--- NOTE | 2023-12-22 15:15 | USCV_ITS ---
Ana Cristina Stephens Age: 73 Gender: F : 1950 Exam Date: 12/22/2023 15:24 Ordering Phys: Juventino Wylie MD ([email or web address]/[facility]) Technologist: SANJUANA Exam Location: [facility] – [place] Indication: Eval for occlusion Risk Factors: Previous Vascular Surgery: Right Brachial BP: / Left Brachial BP: / Right Left Velocity (cm/s) Spectral Plaque Velocity (cm/s) Spectral Plaque Syst/Diast Broadening Syst/Diast Broadening 111.90/8.50 Prox CCA 85.40 / 26.00 69.10/ 10.10 Mid CCA 111.20/ 34.50 73.40/ 11.10 Distal CCA 131.20/ 34.50 41.70/ 14.10 Prox ICA 94.60 / 31.00 54.80/ 10.50 Mid ICA 102.80/ 39.50 31.80/ 10.90 Distal ICA 115.10/ 41.30 191.70 ECA 98.00 0.70 ICA/CCA 0.90 Antegrade Vertebral Antegrade 65.00/ 12.80 cm/s 80.50/ 19.20 cm/s Tri Subclavian Tri 212.0 236.7 0 0 FINDINGS velocities are similiar compared to 2021 CONCLUSIONS Right ICA stenosis <50%. Moderate calcified atheromatous plaque right carotid bulb/ICA. Left ICA stenosis <50%. Moderate calcified atheromatous plaque left carotid bulb/ICA. Intimal thickening in the common carotid arteries and internal carotid arteries bilaterally. Normal antegrade Doppler flow noted in the right vertebral artery. Normal antegrade Doppler flow noted in the left vertebral artery. Aayush Zheng MD (Electronically Signed) Final Date: 22 Dec 2023 17:34 S
== END 2023-12-22 14:41 | disposition home or self-care (01) ==
LOC: RAD 14:41
PROVIDERS: PCP Family Medicine; Visit Provider Internal Medicine Cardiovascular Disease
DX: I65.23 Occlusion and stenosis of bilateral carotid arteries (principal)
CPT/HCPCS: 93880

== ENCOUNTER → 2024-04-26 07:31 | Outpatient (BNVA) | payer MEDICARE, OTHER, SELFPAY | PROVIDERS: PCP Family Medicine; Visit Provider Family Medicine | DX: I10 Essential (primary) hypertension (principal); E78.2 Mixed hyperlipidemia | CPT/HCPCS: 80053; 80061 ==

== ENCOUNTER 2024-10-31 13:46 | Outpatient (CLI) | payer MEDICARE, OTHER, SELFPAY ==
--- NOTE | 2024-10-31 13:54 | XR_ITS ---
WS: [id number] Lumbar spine, 3 views, 10/31/2024 Clinical Data: worsened low back pain after manual chiropractic adjustment Comparison: Lumbar spine, 12/05/2023 Findings: No compression fractures are seen. No disc space narrowing is seen. There is a minimal anterior subluxation of L4 and L5 unchanged. Minimal osteoarthritic spurs are present at all the lumbar vertebral bodies. There is facet joint arthritis from L4/L5 through L5-S1. The transverse processes and SI joints are normal. There is calcification in the wall of the abdominal aorta but no aneurysm. There are cholecystectomy clips in the right upper quadrant. XR/XR lumbar spine 2-3V* [id number] Impression: 1. No change in minimal anterior subluxation of L4 and L5. 2. No change in osteoarthritis and facet joint arthritis.
== END 2024-10-31 13:47 | disposition home or self-care (01) ==
PROVIDERS: PCP Family Medicine; Visit Provider Family Medicine
DX: M54.32 Sciatica, left side (principal); M47.896 Other spondylosis, lumbar region; M47.897 Other spondylosis, lumbosacral region; I70.0 Atherosclerosis of aorta; Z90.49 Acquired absence of other specified parts of digestive tract
CPT/HCPCS: 72100

== ENCOUNTER 2025-03-26 18:33 | Observation (INO) | payer MEDICARE, OTHER, SELFPAY ==
[2025-03-26 18:35] VITALS: BP 226/77; PULSE 70; RESP 18; TEMP 36.7; O2SAT 98; BMI 29.2
--- NOTE | 2025-03-26 18:41 | ECG_ITS ---
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
--- NOTE | 2025-03-26 18:42 | XRR_ITS ---
PROCEDURE INFORMATION: Exam: XR Chest Exam date and time: 03/26/2025 6:45 PM Age: 75 years old Clinical indication: Pain; Chest pressure; Additional info: Chest pain TECHNIQUE: Imaging protocol: Radiologic exam of the chest. Views: 1 view. COMPARISON: CR XR chest 1V portable [id number] 06/19/2022 9:00 PM FINDINGS: Lungs: Unremarkable. No consolidation. Pleural spaces: Unremarkable. No pleural effusion. No pneumothorax. Heart/Mediastinum: Unremarkable. No cardiomegaly. Bones/joints: Unremarkable. XR/XR chest 1V portable [id number] IMPRESSION: No acute findings.
[2025-03-26 18:51] LABS: Hematocrit 44.1 % (36-47); Hemoglobin 15.00 g/dL (11.27-16.99); Mean Corpuscular HGB Conc 34.0 g/dL (30-55); Mean Corpuscular Hemoglobin 31.1 pg (27-33); Mean Corpuscular Volume 91.3 fl (85-98); Nucleated Red Blood Cells % 0 %; Platelet Count 226 10^3/cmm (157-399); Red Blood Count 4.83 10^6/uL (3.85-5.65); White Blood Count 4.99 10^3/uL (3.29-11.43)
--- NOTE | 2025-03-26 18:55 | ED_ITS ---
HPI - Chest Pain 2 General: Chief Complaint: Chest Pain Stated Complaint: CP Time Seen by Provider: 03/26/25 18:41 History of Present Illness: Chief complaint is indigestion. Patient states that on Monday she noticed there was a swollen area on the right base of her neck. She states it was better yesterday. She states today she really cannot notice it but she had made an appoint with her primary care doctor for follow-up. Her blood pressure was noted to be significantly elevated. She states that she has been having indigestion since early this morning off-and-on. It is indigestion and epigastric lower chest area. She has had some slight discomfort between her shoulder blades that comes and goes with the indigestion. No abdominal pain otherwise. No black bloody stools. No leg pain or swelling. No numbness weakness or tingling her arms or legs. No headache. She states she did have a dull headache earlier today. No fever. Related Data Home Medications ?Medication ?Instructions ?Recorded ?Confirmed acetaminophen 500 mg tablet 500 mg PO BID PRN Pain 03/26/25 (Tylenol Extra Strength) yatrrsfp-tyn-blzvv acid 0.4 1 tab PO DAILY 07/01/22 mg-lycopene 300 mcg-lutein 250 mcg tablet (Complete Multivitamin Adult 50 Plus) cholecalciferol (vitamin D3) 25 125 mcg PO DAILY 04/1303/26/25 mcg (1,000 unit) capsule Previous Rx's ?Medication ?Instructions ?Recorded nitroglycerin 0.4 mg sublingual 0.4 mg sublingual Q5M PRN Chest 03/21/23 tablet Pain #30 tabs CPAP (Auto-Titrating CPAP) #1 ea 06/22/23 night splint #1 ea 10/10/23 clopidogrel 75 mg tablet See Rx Instructions .Route 1 10/02/23 .COMPLEX #90 tabs ciprofloxacin HCl 0.3 % eye drops See Rx Instructions ophthalmic 11/08/24 (eye) .COMPLEX #5 mL lisinopril 20 mg tablet See Rx Instructions .Route 0 03/11/25 .COMPLEX #60 tabs amoxicillin 500 mg tablet 500 mg PO Q12H #14 tabs 03/14 11/05 Allergies Allergy/AdvReac Type Severity Reaction Status Date / Time rosuvastatin Allergy Severe myalgia Verified 03/26/25 12:48 carvedilol Allergy exhaustion Verified 03/26/25 12:48 doxycycline Allergy rash Verified 03/26/25 12:48 erythromycin base Allergy Rash Verified 03/26/25 12:48 nitrofurantoin (From Allergy rash Verified 03/26/25 12:48 Macrodantin) Sulfa (Sulfonamide Allergy ALGY-Hives Verified 03/26/25 12:48 Antibiotics) metformin AdvReac Severe Diarrhea Verified 03/26/25 12:48 atorvastatin (From Lipitor) AdvReac Myalgia Verified 03/26/25 12:48 PFS ED 2 PFSH: Medical History (Updated 03/26/25 @ 20:53 by Kamari Barber MD) Chronic low back pain Squamous cell carcinoma of skin Basal cell carcinoma of skin ALVAREZ (obstructive sleep apnea) Female cystocele Coronary artery disease s/p PCI of obtuse marginal artery History of Helicobacter pylori infection Carotid artery disease complete occlusion R cerivcal ICA Hearing loss of both ears Essential hypertension ARUN (generalized anxiety disorder) TMJ (dislocation of temporomandibular joint) Obesity (BMI 30.0-34.9) Asthma Diverticulosis Mixed hyperlipidemia GERD (gastroesophageal reflux disease) Vitamin D deficiency Surgical History History of total hysterectomy with bilateral salpingo-oophorectomy (BSO) H/O esophagogastroduodenoscopy (08/18/20) with dilation H/O colonoscopy 5 yrs ago History of foot surgery Left 2nd toe joint removed History of tonsillectomy History of cholecystectomy Family History Mother Diabetes Dementia Son Hypertension Daughter Hypertension Diabetes Cancer Lung disease Clotting disorder Father Cardiovascular disease Grandmother Anesthesia complication Cardiovascular disease Grandfather Cardiovascular disease Denies family history of CAD (coronary artery disease) Hyperlipidemia Psychiatric illness Chronic kidney disease (CKD) Suicide Bleeding disorder Family history of premature coronary artery disease Stroke Social History Smoking and tobacco/nicotine status: never used tobacco/nicotine Alcohol intake: never Substance/Drug Use: never Adopted: No Caregiver/support person: No Lives independently: Yes Household members: none Marital status: Number of children: 2 Current occupational status: retired 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 She is calmly talking to me as she climbs back in the bed. She is alert and oriented. No drift in her arms or legs. No ataxia. Pupils are equal reactive to light. Full range ocular motion. Normal conjunctiva. Neck is supple. No appreciable swelling of the neck on my exam. No erythema or significant tenderness or lymphadenopathy. She moves her neck freely. No evident JVD. Heart regular rhythm. Lung sounds are clear. Abdomen soft nontender no guarding or rebound. Negative Badillo's. No epigastric tenderness. No palpable mass. No vertebral tenderness in her back. She moves her back freely. Extremities warm well- perfused. No calf tenderness or pitting edema. She moves her legs freely. Speech is clear. She shows ability to reason. She is breathing comfortably. Course 2 Vital Signs: Vital signs: Vital Signs Temperature 98.1 F 03/26/25 18:35 Pulse Rate 83 03/26/25 20:50 Respiratory Rate 14 03/26/25 20:50 Blood Pressure 204/68 03/26/25 20:50 Pulse Oximetry 95 03/26/25 20:50 Oxygen Delivery Me thod Nasal Cannula 03/26/25 19:53 MDM - Chest Pain Medical Decision Making Patient presents after she went to see her doctor because of swelling in her neck that is now resolved. On exam I do not appreciate any swelling. Brachial cleft cyst, JVD, hives, SVC syndrome, DVT, lymphadenopathy, extremely broad differential. Patient is moving her neck freely. She states she did not have any pain in her neck with the swelling. She denied any rash over. Patient however was found to be significantly hypertensive. She was reportedly given 2 nitro given 4 baby aspirin and given 20 mg labetalol IV prior to arrival. Patient's heart rate is now in the 60s and she is still hypertensive. I ordered 10 mg of hydralazine IV. Certainly with pain between the shoulder blades concern for dissection. She describes it more as an indigestion feeling however with epigastric low substernal indigestion feeling and then she will feel some between her shoulder blades. It does not migrate up or down. Does not radiate to the arms or legs. She denies pleurisy to suggest PE. She denies shortness of breath. She states she does have a history of heart disease with a stent placed 3 years ago and has 60% blockage at that time as well. She states she is on clopidogrel but denies anticoagulation. She denies any change to her medications for blood pressure recently. She takes 20 mg lisinopril twice a day. Denies fever. Denies vomiting or black or bloody stools or diarrhea or dysuria. I ordered CT angio chest abdomen, and EKG CBC CMP troponin proBNP. Patient EKG to my interpretation shows sinus rhythm with a rate of 67 bpm and J- point elevation in lead V2 and nonspecific ST segment changes. On comparison to prior EKG she had similar appearing findings in the V2. Delta troponin is negative. White count is not elevated. Patient creatinine is within normal limits. Patient's blood pressure trended back up again. Patient has reported allergy to carvedilol which caused exhaustion according to the record. This is unlikely be a true allergy. I ordered another 10 mg of hydralazine IV. Patient sitting looking at her phone asking if she can go home and asymptomatic. Lipase was elevated. Mild pancreatitis considered with her epigastric discomfort. Liver enzymes are not elevated. White count was not elevated to suggest biliary obstruction or ascending cholangitis. CT is pending. Patient's blood pressure elevations and with her associated symptoms I discussed with patient admission to the hospital and recommended it. She has agreed to this at this point and states she would like to stay because she is concerned that we will go right back up again which she has been doing. CT reported as negative for acute process per radiology. No signs of dissection. Patient does have extensive vascular disease including renal artery stenosis. I consulted with Dr. Mcgraw who accepts the patient for admission Lab Data 03/26/25 18:15 03/26/25 18:15 Radiology Impressions Chest X-Ray 03/26/25 18:42 IMPRESSION: No acute findings. Chest/Abdomen CTA 03/26/25 18:57 IMPRESSION: 1. No evidence of aortic aneurysm, dissection or penetrating ulcer. Extensive atherosclerotic calcification throughout the aorta without significant aortic stenosis. 2. Moderate bilateral renal artery stenosis. 3. Mild stenosis at the origins of the celiac trunk and SMA. Moderate stenosis at the origin of the PAUL. 4. No evidence of pulmonary embolus. Prominent left pulmonary artery trunk raising the question of pulmonary arterial hypertension. 5. Prominent mitral annulus calcification. 6. Bibasilar atelectatic changes straight no consolidation. 7. Hepatomegaly. 8. 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 ADDENDUM: 03/26/252147 As of 9:39 p.m. on 03/26/2025, Anna Fritz confirmed that Morgan Orourke has received the exam report, is aware of the critical finding, and indicated no conference call was necessary to discuss the exam findings. Laboratory Results WBC 4.99 10^3/uL (3.29-11.43) 03/26/25 18:15 RBC 4.83 10^6/uL (3.85-5.65) 03/26/25 18:15 Hgb 15.00 g/dL (11.27-16.99) 03/26/25 18:15 Hct 44.1 % (36-47) 03/26/25 18:15 MCV 91.3 fl (85-98) 03/26/25 18:15 MCH 31.1 pg (27-33) 03/26/25 18:15 MCHC 34.0 g/dL (30-55) 03/26/25 18:15 RDW 11.7 % (12.1-15.1) L 03/26/25 18:15 Plt Count 226 10^3/cmm (157-399) 03/26/25 18:15 MPV 9.6 fL (7.4-10.4) 03/26/25 18:15 Neut % (Auto) 67.8 % 03/26/25 18:15 Lymph % (Auto) 20.4 % 03/26/25 18:15 [place] % (Auto) 8.0 % 03/26/25 18:15 Eos % (Auto) 2.2 % 03/26/25 18:15 Baso % (Auto) 1.0 % 03/26/25 18:15 Neut # (Auto) 3.38 10^3/uL (1.8-7.7) 03/26/25 18:15 Lymph # (Auto) 1.0 10^3/uL (0.8-4.8) 03/26/25 18:15 [place] # (Auto) 0.4 10^3/uL (0.2-0.9) 03/26/25 18:15 Eos # (Auto) 0.1 10^3/uL (0.0-0.8) 03/26/25 18:15 Baso # (Auto) 0.1 10^3/uL (0.0-0.1) 03/26/25 18:15 Nucleated RBC % (auto) 0 % 03/26/25 18:15 Nucleated RBCs # 0.0 /100WBC 03/26/25 18:15 Sodium 138 mmol/L (136-145) 03/26/25 18:15 Potassium 4.0 mmol/L (3.5-5.1) 03/26/25 18:15 Chloride 98 mmol/L (98-107) 03/26/25 18:15 Carbon Dioxide 27 mmol/L (22-29) 03/26/25 18:15 Anion Gap 17.0 (5-19) 03/26/25 18:15 BUN 21 mg/dL (8-23) 03/26/25 18:15 Creatinine 0.7 mg/dL (0.5-0.9) 03/26/25 18:15 GFR Calculation Not Reportable 03/26/25 18:15 Glucose 125 mg/dL (65-115) H 03/26/25 18:15 Calculated Osmolality 290 mOsm/kg (285-295) 03/26/25 18:15 Calcium 10.2 mg/dL (8.5-10.5) 03/26/25 18:15 Total Bilirubin 0.6 mg/dL (0.15-1.2) 03/26/25 18:15 AST 17 U/L (0-32) 03/26/25 18:15 ALT 14 U/L (0-33) 03/26/25 18:15 Alkaline Phosphatase 74 U/L (35-105) 03/26/25 18:15 Troponin T Baseline 10 ng/L (0-10) 03/26/25 18:15 Troponin T 120 Minute 9.71 ng/L (0-10) 03/26/25 20:10 Delta Troponin T -0.29 ABS# (0-10) L 03/26/25 20:10 NT-Pro-B Natriuret Pep 268 pg/mL (0-125) H 03/26/25 18:15 Total Protein 7.1 g/dL (6.6-8.7) 03/26/25 18:15 Albumin 4.8 g/dL (3.5-5.2) 03/26/25 18:15 Globulin 2.3 g/dL (1.3-4.6) 03/26/25 18:15 Lipase 216 U/L (13-60) H 03/26/25 18:15 All radiology interpretation(s) finalized by discharge Discharge Plan Discharge Patient Disposition: Admitted As Inpatient Clinical Impression: Hypertensive crisis, Acute chest pain, Acute epigastric pain, Elevated lipase Condition: Fair Coding Level of Care Code ED Desizing Machine Back Tender for Angela Mendoza
--- NOTE | 2025-03-26 18:57 | CTR_ITS ---
PROCEDURE INFORMATION: Exam: CTA Chest With Contrast CTA Abdomen With Contrast Exam date and time: 03/26/2025 7:57 PM Age: 75 years old Clinical indication: On breathing; Abdominal pain; Generalized; Prior surgery; Surgery date: 6+ months; Surgery type: Hysterectomy, stent; Additional info: Chest pain, aortic protocol TECHNIQUE: Imaging protocol: Computed tomographic angiography of the chest with contrast. Exam focused on the arteries. Computed tomographic angiography of the abdomen with contrast. Exam focused on the arteries. 3D rendering (Not supervised by radiologist): MIP and/or 3D reconstructed images were created by the technologist. Radiation optimization: All CT scans at this facility use at least one of these dose optimization techniques: automated exposure control; mA and/or kV adjustment per patient size (includes targeted exams where dose is matched to clinical indication); or iterative reconstruction. Contrast material: OMNIPAQUE 350; Contrast volume: 100 ml; Contrast route: INTRAVENOUS (IV); COMPARISON: CT abdomen pelvis w con* [id number] 06/17/2019 13:18 RADIATION DOSE METRICS: Total DLP (mGy-cm): 831.06 FINDINGS: VASCULATURE: Pulmonary arteries: No pulmonary emboli. Prominent main pulmonary artery trunk measuring 3.6 cm in transverse dimension, raising the question of pulmonary arterial hypertension. Aorta: No aortic aneurysm. No aortic dissection or penetrating ulcer. There is extensive atherosclerotic calcification throughout the aorta without significant aortic stenosis. Moderate stenosis at the origins of the brachiocephalic trunk and left subclavian artery. Bovine arch. Celiac trunk and mesenteric arteries: Mild stenoses at the origins of the SMA and celiac trunk. Moderate stenosis at the origin of the PAUL. Renal arteries: Moderate stenosis at the origins the right main renal artery, left main renal artery and left accessory renal artery. Veins: Moderate left subclavian vein stenosis with collateral formation. CHEST: Lungs: No consolidation. No masses. Mild bibasilar atelectatic changes. 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 Pleural spaces: Unremarkable. No pneumothorax. No pleural effusion. Heart: No cardiomegaly. No pericardial effusion. Prominent mitral annulus calcification. ABDOMEN AND PELVIS: Liver: The liver is enlarged, measuring 19.7 cm in length at the midclavicular line. No enhancing liver masses. Gallbladder and biliary ducts: There has been a cholecystectomy.There is no evidence of biliary ductal dilation. Pancreas: Unremarkable. No mass. No ductal dilation. Spleen: Unremarkable. No splenomegaly. Adrenal glands: Unremarkable. No mass. Kidneys: No hydronephrosis. There is a 2.7 x 2 x 1.7 cm angiomyolipoma of the right kidney, not significantly changed from the comparison study. Stomach and bowel: Unremarkable. No obstruction. No mucosal thickening. Intraperitoneal space: Unremarkable. No free air. No significant fluid collection. Lymph nodes: Unremarkable. No enlarged lymph nodes. Bones/joints: Unremarkable. No acute fracture. Soft tissues: Unremarkable. CT/[place] [id number] IMPRESSION: 1. No evidence of aortic aneurysm, dissection or penetrating ulcer. Extensive atherosclerotic calcification throughout the aorta without significant aortic stenosis. 2. Moderate bilateral renal artery stenosis. 3. Mild stenosis at the origins of the celiac trunk and SMA. Moderate stenosis at the origin of the PAUL. 4. No evidence of pulmonary embolus. Prominent left pulmonary artery trunk raising the question of pulmonary arterial hypertension. 5. Prominent mitral annulus calcification. 6. Bibasilar atelectatic changes straight no consolidation. 7. Hepatomegaly. 8. 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
[2025-03-26] MEDS: hyDRALAzine 20 mg/mL INJ 1 mL 10 MG IVP ×2 (19:15→20:55)
[2025-03-26 19:16] LABS: Lipase 216 U/L (13-60)
[2025-03-26 19:20] LABS: Troponin(5th) Baseline 10 ng/L (0-10)
[2025-03-26 19:27] LABS: Alanine Aminotransferase 14 U/L (0-33); Albumin Level 4.8 g/dL (3.5-5.2); Alkaline Phosphatase 74 U/L (35-105); Anion Gap 17.0 (5-19); Aspartate Amino Transferase 17 U/L (0-32); Blood Urea Nitrogen 21 mg/dL (8-23); Calcium 10.2 mg/dL (8.5-10.5); Carbon Dioxide 27 mmol/L (22-29); Chloride 98 mmol/L (98-107); Creatinine Clr Calc Pharmacy 62.0065; Globulin 2.3 g/dL (1.3-4.6); Glucose 125 mg/dL (65-115); NT Pro B Type Natriuretic Pept 268 pg/mL (0-125); Osmolality Calculated 290 mOsm/kg (285-295); Potassium 4.0 mmol/L (3.5-5.1); Sodium 138 mmol/L (136-145); Total Protein 7.1 g/dL (6.6-8.7)
[2025-03-26 19:53] VITALS: BP 189/64; PULSE 70; RESP 14; O2SAT 94
[2025-03-26] MEDS: iohexol 350 mg/mL 500 mL Btl (per mL) IV (20:00)
[2025-03-26 20:38] LABS: Troponin 5 2HR 9.71 ng/L (0-10)
[2025-03-26 20:39] LABS: Troponin 5 2HR Delta -0.29 ABS# (0-10)
[2025-03-26 20:50] VITALS: BP 204/68; PULSE 83; RESP 14; O2SAT 95
--- NOTE | 2025-03-26 20:50 | ECG_ITS ---
[facility]: 2025-03-26 Pat Name: Ana Cristina Stephens Department: Room: Gender: Female Home Decorator: : 1950 Requested By: Kamari Barber Order Number: [id number] Reading MD: Measurements Intervals [place] Rate: 72 P: 66 MN: 164 QRS: -32 QRSD: 89 T: 64 QT: 402 QTc: 441 Interpretive Statements SINUS RHYTHM LEFT AXIS DEVIATION [QRS AXIS < -30] [email or web address]
--- OUTSIDE RECORDS SUMMARY | 2025-03-26 23:01 | XMS_ITS | Encounter Summary ---
Author Organization [facility] Address [address] [place] [address] Care Team Providers Care Wedger And Gluer Name Role Phone Cornelius Hansen NP Primary Care Provider +1- [phone] Encounter Details Date Type Department Care Team (Late st Contact Info) Description 08/30/2018 Ancillary Orders [facility] Orthopedics - Orthopedic 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 No clear evidence of a fracture or dislocation. There is some calcification noted surrounding the right hip. Left hip appears to be normal, with no clear evidence of fracture or dislocation, well preserved joint space. Landry Dugan MD DIAGNOSTIC IMAGING ORDERAB LES Final Result documented in this encounter Visit Diagnoses Diagnosis Left hip pain Pain in joint, pelvic region and thigh Left hip pain Pain in joint, pelvic region and thigh documented in this encounter Care Teams Wedger And Gluer Relationship Specialty Start Date End Date Cornelius Hansen NP [address] [place] [phone] PCP - General NURSE PRACTITIONER 09/18/18 documented as of this encounter
--- OUTSIDE RECORDS SUMMARY | 2025-03-26 23:01 | XMS_ITS | Patient Health Record ---
Author Organization [facility] Address [address] [place] [address] Support Name Relationship Address Phone Ana Cristina Stephens Guarantor Unknown [phone] Allergies Allergen (clinical drug ingredient) Drug/Non Drug Allergy documented on EMR Reaction Allergy Type Onset Date Status cephalexin Cephalexin , Drug Allergy Activ e erythromycin Erythromycin , Drug Allergy A ctive fluoxetine Fluoxetine , Drug Allergy Activ e levofloxacin levoFLOXacin , Drug Allergy A ctive nitrofurantoin Nitrofurantoin , Drug Allergy Active doxycycline Doxycycline , Drug Allergy Act marques Reason For Referral No Information Medications Medication SIG (Take, Route, Frequency, Duration) Notes Start Date End Date Status Nystatin 265807 UNT/ML Topical Cream Nystatin 838018 UNT/ML Topical Cream 06/20/2016 Active 100 ACTUAT Beclomethasone Dipropionate 0.04 MG/ACTUAT Metered Dose Inhaler [Qvar] 100 ACTUAT Beclomethasone Dipropionate 0.04 MG/ACTUAT Metered Dose Inhaler [Qvar] 06/20/2016 Active Aspirin Aspirin 06/20/2016 Active Flonase Flonase 06/20/2016 Active Surfak Stool Softener Surfak Sto ol Softener 04/28/2016 Active Potassium gluconate 2.5 MEQ Oral Tablet Potassium gluconate 2.5 MEQ Oral Tablet 04/28/2016 Active Methenamine 162 MG / Sodium Salicylate 162.5 MG Oral Tablet [Cystex] Methenamine 162 MG / Sodium Salicylate 162.5 MG Oral Tablet [Cystex] 07/18/2016 Active Lisinopril 10 MG Oral Tablet Lisinopril 10 MG Oral Tablet 04/28/2016 Active Metoclopramide 10 MG Oral Tablet Metoclopramide 10 MG Oral Tablet 04/28/2016 Active Ketotifen Ketotifen 04/28/2016 Active Prevacid Prevacid 04/28/2016 Active Magnesium Oxide Magnesium Oxide 06/20/2016 Active CHROMIUM PICOLINATE 0.5 MG Oral Tablet CHROMIUM PICOLINATE 0.5 MG Oral Tablet 04/28/2016 Active Magnesium Oxide 250 MG Oral Tablet Magnesium Oxide 250 MG Oral Tablet 04/28/2016 Active CHROMIUM PICOLINATE 0.8 MG Oral Tablet CHROMIUM PICOLINATE 0.8 MG Oral Tablet 06/20/2016 Active Martine Martine 04/28/2016 Active Fluticasone propionate 0.05 MG/ACTUAT Metered Dose Nasal [place] Fluticasone propionate 0.05 MG/ACTUAT Metered Dose Nasal [place] 04/28/2016 Active Ventolin Ventolin 06/20/2016 Active Social History Social History Additional Details Category Social Info Options Details zzMigrated Social History Migrated Social History Smoking Status:Never smoked tobacco (finding) Plan Of Treatment No Information
[2025-03-26] MEDS: labetalol 5 mg/mL SDV 20mL 40 MG IVP (23:02)
--- OUTSIDE RECORDS SUMMARY | 2025-03-26 23:02 | XMS_ITS | Encounter Summary ---
Author Organization [facility] Address [address] [place] [address] Care Team Providers Care Liquor Inspector Name Role Phone Cornelius Hansen NP Primary Care Provider [phone]- [phone] Encounter Details Date Type Department Care Team (Latest Contact Info) Description 12/30/1999 Outpatient Historical 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
--- OUTSIDE RECORDS SUMMARY | 2025-03-26 23:02 | XMS_ITS | Patient Health Record ---
Author Organization [facility] Address [address] [place] [address] Support Name Relationship Address Phone Ana Cristina Stephens Guarantor Unknown [phone] Allergies Allergen (clinical drug ingredient) Drug/Non Drug [...] Duration) Notes Start Date End Date Status Ketotifen Ketotifen *Reord er from [facility] for eRx and Interaction Alerts* 04/28/2016 Active 100 ACTUAT Beclomethasone Dipropionate 0.04 MG/ACTUAT Metered Dose Inhaler [Qvar] 100 ACTUAT Beclomethasone Dipropionate 0.04 MG/ACTUAT Metered Dose Inhaler [Qvar] *Reorder from [facility] for eRx and Interaction Alerts* 04/28/2016 Active Methenamine 162 MG / Sodium Salicylate 162.5 MG Oral Tablet [Cystex] Methenamine 162 MG / Sodium Salicylate 162.5 MG Oral Tablet [Cystex] *Reorder from [facility] for eRx and Interaction Alerts* 07/18/2016 Active CHROMIUM PICOLINATE 0.8 MG Oral Tablet CHROMIUM PICOLINATE 0.8 MG Oral Tablet *Reorder from [facility] for eRx and Interaction Alerts* 06/20/2016 Active Potassium Gluconate 2.5 MEQ Oral Tablet Potassium gluconate 2.5 MEQ Oral Tablet *Reorder from [facility] for eRx and Interaction Alerts* 04/28/2016 Active Aspirin Aspirin *Pick strength-form from [facility] for eRX* 04/28/2016 Active Prevacid Prevacid *Pick strength-form from [facility] for eRX* 04/28/2016 Active Magnesium Oxide Magnesium Oxide *Pick strength-form from [facility] for eRX* 06/20/2016 Active Ventolin Ventolin *Reorde r from [facility] for eRx and Interaction Alerts* 06/20/2016 Active Nystatin 050104 UNT/ML Topical Cream Nystatin 934234 UNT/ML Topical Cream *Reorder from [facility] for eRx and Interaction Alerts* 06/20/2016 Active Metoclopramide 10 MG Oral Tablet Metoclopramide 10 MG Oral Tablet *Reorder from [facility] for eRx and Interaction Alerts* 04/28/2016 Active Martine Martine *Reorder from [facility] for eRx and Interaction Alerts* 04/28/2016 Active Magnesium Oxide 250 MG Oral Tablet Magnesium Oxide 250 MG Oral Tablet *Reorder from [facility] for eRx and Interaction Alerts* 04/28/2016 Active Lisinopril 10 MG Oral Tablet Lisinopril 10 MG Oral Tablet *Reorder from [facility] for eRx and Interaction Alerts* 04/28/2016 Active Flonase Flonase *Reorder from [facility] for eRx and Interaction Alerts* 06/20/2016 Active Surfak Stool Softener Surfak Sto ol Softener *Reorder from [facility] for eRx and Interaction Alerts* 04/28/2016 Active CHROMIUM PICOLINATE 0.5 MG Oral Tablet CHROMIUM PICOLINATE 0.5 MG Oral Tablet *Reorder from [facility] for eRx and Interaction Alerts* 04/28/2016 Active Fluticasone propionate 0.05 MG/ACTUAT Metered Dose Nasal [place] Fluticasone propionate 0.05 MG/ACTUAT Metered Dose Nasal [place] *Reorder from [facility] for eRx and Interaction Alerts* 04/28/2016 Active Plan Of Treatment No Information
--- OUTSIDE RECORDS SUMMARY | 2025-03-26 23:02 | XMS_ITS | Encounter Summary ---
Author Organization [facility] Address [address] [place] [address] Care Team Providers Care Manager Of Program Name Role Phone Cornelius Hansen NP Primary Care Provider +1- [phone] Encounter Details Date Type Department Care Team (Latest Contact Info) Description 11/27/2000 Outpatient Historical HIS [facility] Rodney Kay MD [address] [place] [address] Allergic rhinitis, cause unspecified (Primary Dx); Acute upper respiratory infections of unspecified site Social History Tobacco Use Types Packs/Day Years Used Date Smoking Tobacco: Never Assessed Comments Unknown Sex and Gender Information Value Date Recorded Sex Assigned at Not on file Legal Sex Female 5:20 AM DIRECTOR SOCIAL WELFARE Gender Identity Not on file Sexual Orientation Not on file documented as of this encounter Plan of Treatment Not on file documented as of this encounter Visit Diagnoses Diagnosis Allergic rhinitis, cause unspecified- Primary Acute upper respiratory infections of unspecified site documented in this encounter Care Teams Manager Of Program Relationship Specialty Start Date End Date Cornelius Hansen NP [address] [place] [phone] PCP - General NURSE PRACTITIONER 09/18/18 documented as of this encounter
--- OUTSIDE RECORDS SUMMARY | 2025-03-26 23:02 | XMS_ITS | Encounter Summary ---
Author Organization [facility] Address [address] [place] [address] Care Team Providers Care Child Nurse Name Role Phone Cornelius Hansen NP Primary Care Provider [phone]- [phone] Encounter Details Date Type Department Care Team (Latest Contact Info) Description 09/08/2000 Outpatient Historical HIS [facility] Rdoney Kay MD [address] [place] [address] Bronchitis, not specified as acute or chronic (Primary Dx) Social History Tobacco Use Types Packs/Day Years Used Date Smoking Tobacco: Never Assessed Comments Unknown Sex and Gender Information Value Date Recorded Sex Assigned at Not on file Legal Sex Female 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
--- OUTSIDE RECORDS SUMMARY | 2025-03-26 23:02 | XMS_ITS | Encounter Summary ---
Author Organization [facility] Address [address] [place] [address] Care Team Providers Care Envelope Machine Adjuster Name Role Phone Cornelius Hansen NP Primary Care Provider Encounter Details Date Type Department Care Team (Latest Contact Info) Description 02/19/2002 Outpatient Historical HIS [facility] Rodney Kay MD [address] [place] [address] ACUTE SINUSITIS NOS (Primary Dx) Social History Tobacco Use Types Packs/Day Years Used Date Smoking Tobacco: Never Assessed Comments Unknown Sex and Gender Information Value Date Recorded Sex Assigned at Not on file Legal 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
--- OUTSIDE RECORDS SUMMARY | 2025-03-26 23:02 | XMS_ITS | Encounter Summary ---
Author Organization [facility] Address [address] [place] [address] Care Team Providers Care Team Truck Driver Name Role Phone Cornelius Hansen NP Primary Care Provider [phone]- [phone] Encounter Details Date Type Department Care Team (Latest Contact Info) Description 06/27/2000 Outpatient Historical HIS [facility] Rodney Kay MD [address] [place] [address] Urinary tract infection, site not specified (Primary Dx) Social History Tobacco Use Types Packs/Day Years Used Date Smoking Tobacco: Never Assessed Comments Unknown Sex and Gender Information Value Date Recorded Sex Assigned at Not on file Legal 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
--- OUTSIDE RECORDS SUMMARY | 2025-03-26 23:02 | XMS_ITS | Clinical Summary ---
Author Organization [facility] Address [address] [facility] Attn: Epic Prelude ADT [facility] [place] [address] Care Team Providers Care Manager Bridge Name Role Phone Cornelius Hansen NP Primary Care Provider +1- [phone] Allergies Active Allergy Reactions Criticality Noted Date Comments Erythromycin Nausea and Vomiting Low 08/30/2018 Nitrofurantoin Macrocrystalline Hives High 08/30/2018 Nitrofurantoin Monohyd/M-Cryst Hives High 08/30/2018 Sulfa (Sulfonamide Antibiotics) Other (See Comments) 08/30/2018 [place] Problems Medications ergocalciferol, vitamin D2, (VITAMIN D ORAL) Take by mouth. 08/30/2018 Active clopidogreL (PLAVIX) 75 mg Tablet Take 75 mg by mouth daily. 02/10/2024 Active vitamin A-vitamin C-vitamin E (OCUVITE) Tablet Take 1 Tablet by mouth daily. Active B-complex + vitamin C (SUPER B-C) Tablet Take 1 Tablet by mouth daily. Active cholecalciferol, vitamin D3, 5,000 unit Take 400 Units by mouth every 7 days. Active NITROGLYCERIN ORAL Take 0.4 mg by mouth 1 time daily as needed. Active olmesartan-amLOD IPine-HCTZ (TRIBENZOR) 20-5-12.5 mg tablet Take 1 Tablet by mouth daily. 30 Tablet 11 03/14/2024 Active Active Problems No known active problems Encounters Date Type Department Care Team Description 02/26/2025 External Device Data ST[facility] ABSTRACTION Provider, Abstract 02/26/2025 External Device Data [facility] ABSTRACTION Provider, Abstract 02/25/2025 External Device Data [facility] ABSTRACTION Provider, Abstract 02/04/2025 External Device Data [facility] ABSTRACTION Provider, Abstract 01/29/2025 External Device Data [facility] ABSTRACTION Provider, Abstract 01/28/2025 External Device Data [facility] ABSTRACTION Provider, Abstract 01/01/2025 External Device Data [facility] ABSTRACTION Provider, Abstract 12/31/2024 External Device Data [facility] ABSTRACTION Provider, Abstract from Last 3 Months Social History Tobacco Use Types Packs/Day Years Used Date Smoking Tobacco: Never Smokeless Tobacco: Never Comments Unknown Sex and Gender Information Value Date Recorded Sex Assigned at Not on file Legal Sex Female 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 Gender Identity Not on file Sexual Orientation Not on file Last Filed Vital Signs Vital Sign Reading Time Taken Comments Blood Pressure 160/78 03/14/2024 2:33 PM CDT Pulse 68 03/14/2024 2:33 PM CDT Temperature - - Respiratory Rate - - Oxygen Saturation - - Inhaled Oxygen Concentration - - Weight 78.8 kg (173 lb 12.8 oz) 03/14/2024 2:33 PM CDT Height 163.8 cm (5' 4.5 ) 03/14/2024 2:33 PM CDT Body Mass Index 29.37 03/14/2024 2:33 PM CDT Plan of Treatment Health Maintenance Due Date Last Done Comments DTAP/TDAP/TD VACCINES (1 - Tdap) 1970 PNEUMOCOCCAL VACCINE 50+ YEARS (1 of 2 - PCV) 03/06/19 70 FIT-DNA Q 3 years 1996 FIT/FOBT Q 1 year 1996 Flex Sig/CT Colonography Q 5 years 1996 ZOSTER VACCINE (1 of 2) 2001 RSV VACCINE (60+ or ) (1 - Risk 60-74 years 1-dose series) 2011 BREAST CANCER SCREENING 03/03/2017 03/03/2016 OSTEOPOROSIS SCREENING 03/03/2021 03/03/2016 INFLUENZA VACCINE (#1) 2025 COLORECTAL SCREENING 05/19/2026 05/19/2016 Colorectal Cancer Screening 05/19/[address] [place] [address] MEDICARE PART A AND B [id number] Care Teams Manager Bridge Relationship Specialty Start Date End Date Cornelius Hansen NP [address] [place] [phone] PCP - General NURSE PRACTITIONER 09/18/18
--- OUTSIDE RECORDS SUMMARY | 2025-03-26 23:02 | XMS_ITS | Encounter Summary ---
Author Organization [facility] Address [address] [place] [address] Care Team Providers Care Medical Surgery Nurse Name Role Phone Cornelius Hansen NP Primary Care Provider +1- [phone] Encounter Details Date Type Department Care Team (Latest Contact Info) Description 04/12/2004 Outpatient [facility] Oral and Maxillo Surgery[address] [place] [address] Yordy Souza, PhD NO ADDRESS ON FILE RETAINED DENTAL ROOT (Primary Dx) Social History Tobacco Use Types Packs/Day Years Used Date Smoking Tobacco: Never Assessed Comments Unknown Sex and Gender Information Value Date Recorded Sex Assigned at Not on file Legal Sex Female 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
--- OUTSIDE RECORDS SUMMARY | 2025-03-26 23:02 | XMS_ITS | Encounter Summary ---
Author Organization [facility] Address [address] [place] [address] Care Team Providers Care Inside Account Representative Name Role Phone Cornelius Hansen NP Primary Care Provider Encounter Details Date Type Department Care Team (Latest Contact Info) Description 10/18/2001 Outpatient Historical HIS [facility] Marko Dunham MD [address] [place], [place] [address] ACUTE SINUSITIS NOS (Primary Dx) Social History Tobacco Use Types Packs/Day Years Used Date Smoking Tobacco: Never Assessed Comments Unknown Sex and Gender Information Value Date Recorded Sex Assigned at Not on file Legal Sex Female 5:20 AM CARE CENTER MANAGER Gender Identity Not on file Sexual Orientation Not on file documented as of this encounter Plan of Treatment Not on file documented as of this encounter Visit Diagnoses Diagnosis Acute sinusitis, unspecified- Primary documented in this encounter Care Teams Inside Account Representative Relationship Specialty Start Date End Date Cornelius Hansen NP [address] [place] [phone] PCP - General NURSE PRACTITIONER 09/18/18 documented as of this encounter
--- OUTSIDE RECORDS SUMMARY | 2025-03-26 23:02 | XMS_ITS | Clinical Summary ---
Author Organization [facility] Address [address] [place] [address] Care Team Providers Care Field Radio Technician Name Role Phone Cornelius Hansen NP Primary Care Provider [phone] Allergies Active Allergy Reactions Criticality Noted Date Comments Erythromycin Nausea and Vomiting Low 08/30/2018 Nitrofurantoin Macrocrystalline Hives High 08/30/2018 Nitrofurantoin Monohyd/M-Cryst Hives High 08/30/2018 Sulfa (Sulfonamide Antibiotics) Other (See Comments) 08/30/2018 [place] Problems Medications lisinopril (PRINIVIL) 20 mg tablet 07/17/2018 Active sucralfate (CARAFATE) 1 gram tablet 07/12/2018 Active ergocalciferol, vitamin D2, (VITAMIN D ORAL) Take by mouth. Active ranitidine HCl (ZANTAC ORAL) Take by mouth. Active ibuprofen (MOTRIN) 200 mg tablet Take 200 mg by mouth every 6 hours as needed for Pain, Mild. Active Active Problems No known active problems Social History Tobacco Use Types Packs/Day Years Used Date Smoking Tobacco: Never Smokeless Tobacco: Never Comments Unknown Sex and Gender Information Value Date Recorded Sex Assigned at Not on file Legal Sex Female 5:20 AM DYE FEEDER Gender Identity Not on file Sexual Orientation Not on file Last Filed Vital Signs Vital Sign Reading Time Taken Comments Blood Pressure 154/79 08/30/2018 1:10 PM DYE FEEDER Pulse 76 08/30/2018 1:10 PM DYE FEEDER Temperature - - Respiratory Rate - - Oxygen Saturation - - Inhaled Oxygen Concentration - - Weight 87.5 kg (193 lb) 08/30/2018 1:10 PM DYE FEEDER Height 163.8 cm (5' 4.5 ) 08/30/2018 1:10 PM DYE FEEDER Body Mass Index 32.62 08/30/2018 1:10 PM DYE FEEDER Plan of Treatment Health Maintenance Due Date Last Done Comments DTAP/TDAP/TD VACCINES (1 - Tdap) 1970 FIT-DNA Q 3 years 1996 FIT/FOBT Q 1 year 1996 Flex Sig/CT Colonography Q 5 years 1996 PNEUMOCOCCAL VACCINE 50+ YEARS (1 of 1 - PCV) 03/06/20 ZOSTER VACCINE (1 of 2) 2001 BREAST CANCER SCREENING 03/03/2017 03/03/2016 OSTEOPOROSIS SCREENING 03/03/2021 03/03/2016 INFLUENZA VACCINE (#1) 2025 RSV VACCINE (60+ or ) (1 - 1-dose 75+ series) 2026 COLORECTAL SCREENING 05/19/2026 05/19/2016 Colorectal Cancer Screening 05/19/[address] [address] MEDICARE PART A AND B [facility] Care Teams Field Radio Technician Relationship Specialty Start Date End Date Cornelius Hansen NP [address] [place] [phone] PCP - General NURSE PRACTITIONER 09/18/18
--- OUTSIDE RECORDS SUMMARY | 2025-03-26 23:02 | XMS_ITS | Encounter Summary ---
Author Organization [facility] Address [address] [place] [address] Care Team Providers Care Coffee Machine Technician Name Role Phone Cornelius Hansen NP Primary Care Provider [phone] Encounter Details Date Type Department Care Team (Latest Contact Info) Description 09/19/2001 Outpatient Historical [facility] Rodney Kay MD [address] [place] [address] BRONCHITIS NOS (Primary Dx) Social History Tobacco Use Types Packs/Day Years Used Date Smoking Tobacco: Never Assessed Comments Unknown Sex and Gender Information Value Date Recorded Sex Assigned at Not on file Legal Sex Female 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
--- OUTSIDE RECORDS SUMMARY | 2025-03-26 23:02 | XMS_ITS | Patient Health Record ---
Author Organization [facility] Address [address] [place] [address] Support Name Relationship Address Phone Chloe Bansal Emergency Contact Unknown Ana Cristina Stephens Guarantor Unknown [phone] Allergies Allergen (clinical drug ingredient) Drug/Non Drug Allergy documented on EMR Reaction Allergy Type Onset Date Status cephalexin Cephalexin intolerance Drug Allergy Act marques doxycycline Doxycycline intolerance Drug Allergy A ctive erythromycin Erythromycin intolerance Drug Allergy Active atorvastatin Lipitor intolerance Drug Allergy Ac tive Substance with sulfonamide structure and antibacterial mechanism of action (substance) Sulfa Antibiotics intolerance Drug Allergy Active Reason For Referral No Information Medications Medication SIG (Take, Route, Frequency, Duration) Notes Start Date End Date Status Triamcinolone Acetonide 0.5 % Cream 1 deborah applied topically 2 times a day to rash for up to 2 weeks 03/05/2018 Active predniSONE 20 MG Tablet 60 mg per day for 5 days then 40 mg per day for 5 days then 20 mg per day for 5 days orally 03/05/2018 Active Zoloft 25 MG Tablet 1 tab(s) orally once a day Active Albuterol Sulfate DIRECTED *Please review and pick correct strength-formulatio n from Medispan options. If intended option is not shown, discontinue and re-order from Quick Search* Active Lisinopril 20 MG Tablet 1 tab(s) orally once a day Active Social History Social History General Social Info Question Answer Notes Tobacco Use: Are you a: never smoker Additional Findings: Tobacco Non-User Current no n-smoker Plan Of Treatment No Information Insurance Providers Payer Name Payer Address Payer Phone Subscriber Number Group Number Insured Name Patient Relationship to Insured Coverage Start Date Coverage End Date MEDICARE [employer] DEPT [address] [place] [address] [id number] Ana Cristina Stephens Self - patient is the insured [employer] MEDICARE SUPP ONLY [id number] [place] [id number] Ana Cristina Stephens Self - patient is the insured
--- OUTSIDE RECORDS SUMMARY | 2025-03-26 23:02 | XMS_ITS | Encounter Summary ---
Author Organization [facility] Address [address] [place] [address] Care Team Providers Care Balloon Design Printer Name Role Phone Cornelius Hansen NP Primary Care Provider Encounter Details Date Type Department Care Team (Latest Contact Info) Description 03/11/2002 Outpatient Historical [facility] Rodney Kay MD [address] [place] [address] ACUTE SINUSITIS NOS (Primary Dx) Social History Tobacco Use Types Packs/Day Years Used Date Smoking Tobacco: Never Assessed Comments Unknown Sex and Gender Information Value Date Recorded Sex Assigned at Not on file Legal Sex Female 5:20 AM TRY OUT PERSON Gender Identity Not on file Sexual Orientation Not on file documented as of this encounter Plan of Treatment Not on file documented as of this encounter Visit Diagnoses Diagnosis Acute sinusitis, unspecified- Primary documented in this encounter Care Teams Balloon Design Printer Relationship Specialty Start Date End Date Cornelius Hansen NP [address] [place] [phone] PCP - General NURSE PRACTITIONER 09/18/18 documented as of this encounter
--- OUTSIDE RECORDS SUMMARY | 2025-03-26 23:02 | XMS_ITS | Encounter Summary ---
Author Organization [facility] Address [address] [place] [address] Care Team Providers Care Project Inspector Name Role Phone Cornelius Hansen NP Primary Care Provider Encounter Details Date Type Department Care Team (Latest Contact Info) Description 01/25/2000 Outpatient Historical [facility] Rodney Kay MD [address] [place] [address] Other, multiple, and unspecified sites, insect bite, nonvenomous, without mention of infection(919.4) (Primary Dx); Allergic rhinitis, cause unspecified Social History Tobacco Use Types Packs/Day Years Used Date Smoking Tobacco: Never Assessed Comments Unknown Sex and Gender Information Value Date Recorded Sex Assigned at Not on file Legal Sex Female 5: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 DIRECTOR OF CORPORATE 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 Gender Identity Not on file Sexual Orientation Not on file documented as of this encounter Plan of Treatment Not on file documented as of this encounter Visit Diagnoses Diagnosis Other, multiple, and unspecified sites, insect bite, nonvenomous, without mention of infection(919.4)- Primary Other, multiple, and unspecified sites, insect bite, nonvenomous, without mention of infection Allergic rhinitis, cause unspecified documented in this encounter Care Teams Project Inspector Relationship Specialty Start Date End Date Cornelius Hansen NP [address] [place] [phone] PCP - General NURSE PRACTITIONER 09/18/18 documented as of this encounter
--- NOTE | 2025-03-26 23:12 | P.HP_ITS ---
Providers/Chief Complaint 2 Admitting Physician: Aayush Mcgraw MD Primary Care Provider: Florencia Ramirez MD Chief Complaint: CP History of Present Illness Ana Cristina Stephens is a 75 year old female was seen at Dr. Florencia Ramirez's office today and noted blood pressure running little high. Patient went home and blood pressure was even higher so she called 911 and took 2 of her own nitroglycerin at home and received 20 of labetalol in the ambulance and presented to the emergency department where she had 2 doses of hydralazine. Patient had been having pain between her shoulder blades as well as chest pain with exertion and abdominal pain with indigestion so CT angiogram was done. This showed 1. No evidence of aortic aneurysm, dissection or penetrating ulcer. Extensive atherosclerotic calcification throughout the aorta without significant aortic stenosis. 2. Moderate bilateral renal artery stenosis. 3. Mild stenosis at the origins of the celiac trunk and SMA. Moderate stenosis at the origin of the PAUL. 4. No evidence of pulmonary embolus. Prominent left pulmonary artery trunk raising the question of pulmonary arterial hypertension. 5. Prominent mitral annulus calcification. 6. Bibasilar atelectatic changes straight no consolidation. 7. Hepatomegaly. 8. 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 Patient states she is a little upset now learning that she had narrowing in her arteries in her abdomen. She knows that she has had very high cholesterol but states she could not tolerate statin due to muscle aches in her neck and shoulders. She states that was about 20 years ago to rosuvastatin and she has not taken another statin. She states she has not been treated with any other cholesterol-lowering medicine but Dr. Ramirez has referred her to a new bonderizer operator and she is going to see here locally. Patient also did not take coenzyme every 10 with statin in the past but she did take something awwt-zrj-[id number] for cholesterol. Patient denies chest pain currently but states she gets some chest pain with exertion Review of Systems 2 Narrative: General no fevers chills Cardiovascular positive for chest pain that she thought was heartburn but also admits to pain in the shoulders and between the shoulders with activity. Respiratory positive for cough chronic with lisinopril she would like a medication change GI positive for constipation chronically she has also had some nausea recently without vomiting no dysuria but she has difficulty getting urine started due to pelvic prolapse so she has to sit on the toilet for a long time or strain which she tries to avoid Neuro no seizures strokes Medications/Allergies Home Medications ?Medication ?Instructions ?Recorded ?Confirmed ?Last Taken ?Type acetaminophen 500 mg tablet 500 mg PO BID PRN Pain 03/26/25 06/21/22 22:00 History (Tylenol Extra Strength) hjniyfza-xwq-owrvw acid 0.4 1 tab PO DAILY 07/01/22 Unknown History mg-lycopene 300 mcg-lutein 250 mcg tablet (Complete Multivitamin Adult 50 Plus) nitroglycerin 0.4 mg sublingual 0.4 mg sublingual Q5M PRN Chest 03/21/23 03/26/25 Unknown Rx tablet Pain #30 tabs cholecalciferol (vitamin D3) 25 125 mcg PO DAILY 04/1303/26/25 Unknown History mcg (1,000 unit) capsule CPAP (Auto-Titrating CPAP) #1 ea 06/22/23 04/26/24 Unk nown Rx night splint #1 ea 10/10/23 04/26/24 Unkn own Rx clopidogrel 75 mg tablet See Rx Instructions .Route 1 10/02/23 03/26/25 Unknown Rx .COMPLEX #90 tabs ciprofloxacin HCl 0.3 % eye drops See Rx Instructions ophthalmic 11/08/24 03/26/25 Unknown Rx (eye) .COMPLEX #5 mL lisinopril 20 mg tablet See Rx Instructions .Route 0 03/11/25 03/26/25 Unknown Rx .COMPLEX #60 tabs amoxicillin 500 mg tablet 500 mg PO Q12H #14 tabs 03/1403/26/25 Unknown Rx Allergies Allergy/AdvReac Type Severity Reaction Status Date / Time rosuvastatin Allergy Severe myalgia Verified 03/26/25 12:48 carvedilol Allergy exhaustion Verified 03/26/25 12:48 doxycycline Allergy rash Verified 03/26/25 12:48 erythromycin base Allergy Rash Verified 03/26/25 12:48 nitrofurantoin (From Allergy rash Verified 03/26/25 12:48 Macrodantin) Sulfa (Sulfonamide Allergy ALGY-Hives Verified 03/26/25 12:48 Antibiotics) metformin AdvReac Severe Diarrhea Verified 03/26/25 12:48 atorvastatin (From Lipitor) AdvReac Myalgia Verified 03/26/25 12:48 PFSH Acute 2 PFSH: Medical History (Updated 03/26/25 @ 23:25 by Aayush Mcgraw MD) Chronic low back pain Squamous cell carcinoma of skin Basal cell carcinoma of skin ALVAREZ (obstructive sleep apnea) Female cystocele Coronary artery disease s/p PCI of obtuse marginal artery History of Helicobacter pylori infection Carotid artery disease complete occlusion R cerivcal ICA Hearing loss of both ears Essential hypertension ARUN (generalized anxiety disorder) TMJ (dislocation of temporomandibular joint) Obesity (BMI 30.0-34.9) Asthma Diverticulosis Mixed hyperlipidemia GERD (gastroesophageal reflux disease) Vitamin D deficiency Surgical History History of total hysterectomy with bilateral salpingo-oophorectomy (BSO) H/O esophagogastroduodenoscopy (08/18/20) with dilation H/O colonoscopy 5 yrs ago History of foot surgery Left 2nd toe joint removed History of tonsillectomy History of cholecystectomy Family History Mother Diabetes Dementia Son Hypertension Daughter Hypertension Diabetes Cancer Lung disease Clotting disorder Father Cardiovascular disease Grandmother Anesthesia complication Cardiovascular disease Grandfather Cardiovascular disease Denies family history of CAD (coronary artery disease) Hyperlipidemia Psychiatric illness Chronic kidney disease (CKD) Suicide Bleeding disorder Family history of premature coronary artery disease Stroke Social History (Updated 03/26/25 @ 23:20 by Aayush Mcgraw MD) Smoking and tobacco/nicotine status: never used tobacco/nicotine Alcohol intake: never Substance/Drug Use: never Additional social history: 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 CODE STATUS as discussed today with Aayush Mcgraw MD on 03/26/2025 Adopted: No Caregiver/support person: No Lives independently: Yes Household members: none Marital status: Number of children: 2 Current occupational status: retired 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 Do you think of yourself as: Straight/Heterosexual Current gender identity: Female Syeda/Mu-Ism: Lutheran Special syeda needs: No Agree to transfusion: Yes Vitals/I&O/Wt Last Vital Signs Temp 98.1 F 03/26/25 18:35 Pulse 83 03/26/25 20:50 Resp 14 03/26/25 20:50 BP 204/68 03/26/25 20:50 Pulse Ox 95 03/26/25 20:50 O2 Del Method Nasal Cannula 03/26/25 19:53 Weight last 48 hrs Weight 77.111 kg Physical Exam 2 Narrative: General well-developed well-nourished female in no acute cardiopulmonary distress she is moderately overweight CV regular rate and rhythm no loud murmurs Lungs clear to auscultation bilaterally Abdomen positive bowel tones soft she has mild epigastric tenderness without rebound. Back no flank tenderness Calves no tenderness cords pretibial edema Mentation alert and oriented pleasant Data 03/26/25 18:15 03/26/25 18:15 A&P Assessment and plan 1. Hypertensive urgency: Patient was barely treated with hydralazine and labetalol low-dose blood pressure still 200. I gave additional 40 mg of labetalol, enalapril 0.625 mg and amlodipine orally. Blood pressure did come down to 161/60 and 159/53. She is okay to go to the floor at this time she has severe hardening of the arteries and I talked to her about treating cholesterol with statin plus coenzyme every 10 but she is reluctant. She is willing to take ezetimibe. She is already on Plavix and aspirin. Patient reports cough with lisinopril so will be changed to losartan 2. Elevated lipase: I did not discuss with her if she is taking semaglutide or tirzepatide. If she is those would likely need to be stopped. Recheck lipase in the morning 3. Acute chest pain: Lower blood pressure monitor for angina. She has calcified vasculature and likely that explains her exertional angina with her blood pressure so I 4. Coronary artery disease: She has a history of a stent PCI to obtuse marginal. Troponins negative 5. Hyperlipidemia: Start ezetimibe will check lipoprotein a and high-sensitivity C-reactive protein. I encouraged her to take a statin but she wants to wait until she talks with the bonderizer operator. I would recommend that she start at least with the ezetimibe and PCSK9 inhibitor such as Repatha 6. Mesenteric angina: As above vascular disease treat cholesterol and blood pressure PDMP PDMP Reviewed: Not Reviewed Attestations 2 Medical Necessity Statement*: Patient admitted to hospital with hypertensive urgency but that improved. Anticipate discharge in 1 to 2 days Coding Level of Care Code Acute Code for Chg Fwd Diagnoses Hypertensive urgency I16.0 Elevated lipase R74.8 Acute chest pain R07.9 Coronary artery disease I25.10 Hyperlipidemia E78.5 Mesenteric angina K55.1
[2025-03-26 23:27] VITALS: BP 156/58; PULSE 66; RESP 14; O2SAT 94
[2025-03-26 23:29] VITALS: BP 191/70; PULSE 79; RESP 18; O2SAT 97
[2025-03-26 23:30] VITALS: BP 191/70
[2025-03-27] VITALS (15 sets, daily range): BP systolic 146–197; BP diastolic 54–70; PULSE 65–76; RESP 12–26; TEMP 36.7–36.8; O2SAT 90–97
[2025-03-27 01:17] LABS: Troponin 5 6HR 12.81 ng/L (0-10); Troponin 5 6HR Delta 2.81 ng/L (0-12)
[2025-03-27 01:18] LABS: Anion Gap 15.1 (5-19); Blood Urea Nitrogen 18 mg/dL (8-23); Calcium 9.8 mg/dL (8.5-10.5); Carbon Dioxide 24 mmol/L (22-29); Chloride 100 mmol/L (98-107); Creatinine Clr Calc Pharmacy 62.0945; Glucose 173 mg/dL (65-115); Osmolality Calculated 286 mOsm/kg (285-295); Potassium 4.1 mmol/L (3.5-5.1); Sodium 135 mmol/L (136-145)
[2025-03-27 01:19] LABS: Lipase 52 U/L (13-60)
[2025-03-27 01:38] LABS: CRP High Sensitivity Cardiac < 0.150 mg/dL (0.0-0.3)
--- NOTE | 2025-03-27 05:40 | ECG_ITS ---
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
--- NOTE | 2025-03-27 09:49 | PC.CHAP ---
Pastoral Care Encounter/Spiritual Assessment Type of Contact [] Declined acquisitions librarian visit [] Patient/Family/Request visit [] Outpatient visit [] Follow-up visit [] Physician referral [] Code/Alert [] Routine visit [] Staff referral [] Actively dying [] Patient sleeping [] Family support [] [x] Out of room [] Palliative care [] [] Receiving care in room [] Pre-surgical visit [] Trauma [] Long length of stay [] ICU visit [] Other: Relational/Emotional Strength [] Patient feels connected with others/family/visitors/staff [] Distress [] Loneliness/isolation [] Abandonment Spirituality of Patient [] Person of Syeda [] Attends Christian of their Syeda [] Believes in Prayer [] Reads Bible or Uatsdin materials [] There are Spiritual issues to be addressed Jigman Interventions [] Prayer [] Active listening [] Non-anxious presence [] Spiritual/emotional support [] Crisis/trauma care [] Spiritual counseling [] Bereavement support [] Provided bereavement packet [] Provided Bible/devotional materials [] Provided toy/stuffed animal, coloring book to patient or family member [] Provided Communion [] Anointing/[place] [] Salvation [] Completed spiritual assessment [] Other: Impact on Illness or Injury [] Angry [] Fearful [] Anxious [] Often cries [] Exhaustion [] Unable to work [] Unable to attend judaism [] Unable to walk/stand [] Unable to read [] Unable to drive [] Unable to eat/drink [] Unable to sleep [] Unable to be with family [] Patient intubated [] Other: Summary Time spent with patient
--- NOTE | 2025-03-27 10:39 | PM.DCS ---
Discharge Providers Date of Admission: 03/26/25 21:45 Date of Discharge: March 27, 2025 Attending Provider at Admission: Aayush Mcgraw MD Attending Provider at Discharge: Hardeep Longoria MD Primary Care Provider: Florencia Ramirez MD Diagnoses at Discharge Discharge Diagnosis 1. Hypertensive urgency: 2. Elevated lipase: 3. Acute chest pain: 4. Coronary artery disease: 5. Hyperlipidemia: 6. Mesenteric angina: Reason for Visit Reason for Visit: CP Brief History: 75 year old female presenting with hyptertensive urgency and chest pain with history of CVD. Hospital Course Hospital Course 1. Hypertensive urgency: - Patient corrected quickly with hydralazine and labetalol - difficult to treat HTN as she has multiple allergies/side effects that are troublesome. - She has been on lisinopril, consider changing to ARB for cough. - wanting to avoid amlodipine for possible optic nerve damage - allergy (fatigue) to carvedilol - per [place] society of HTN recs, in general - first line is Renaldo/Arb or CCB - second line is thiazide, preferably chlorthalidone rather than HCTZ as the latter has more side effects and less BP effect - third line is aldosterone antagonist - fourth line is vasoactive BB (carvedilol, labetalol, bystolic) - for her, we can change her BB to labetelol as she has reported fatigue with carvedilol in the past - we can start her on telmisartan which is best in class for the ARBs, unfortunately this is nonformularly inpatient. ARBs generally have fewer side effects (including less cough) than ACEi and telmisartan has a 30hr t1/2 which should help with BP spikes during the day. - consider chlorthalidone as a third agent or to replace labetalol if not tolerating - consider spironolactone/eplerenone if she is needing another agent. - other agents such as clonidine/hydralazine/imdur are generally consider last resort if no other options are available. - blood pressure is correcting appropriately this AM, in general goal correction is about 25% lowering per day. 2. Elevated lipase: - not elevated this AM 3. Acute chest pain: Lower blood pressure monitor for angina. - She has calcified vasculature and likely that explains her exertional angina with her blood pressure - recent stress test, she is meeting with her custodian blood bank to discuss - no chest pain this AM. - troponins have been negative, no ACS. 4. Coronary artery disease: She has a history of a stent PCI to obtuse marginal. Troponins negative - cont. plavix 5. Hyperlipidemia: - she wants to wait until she talks with the custodian blood bank before changing meds - reluctant to start zetia as it could have GI upset as side effect in some people - intolerant to statin. - discuss with cardiology if she could be a candidate for PCSK9 inhibitor such as Repatha 6. Mesenteric angina: As above vascular disease treat cholesterol and blood pressure - PPI. Disposition - discharge planning for today - follow up with cardiology and with PCP. Recheck BP on follow up and adjust as necessary (see above). Physical Exam Const: COMMON NORMALS: no acute distress, average body habitus, patient oriented x3 and no limitations HENMT: COMMON NORMALS: normocephalic, atraumatic and hearing grossly normal bilaterally HEAD & SCALP: normocephalic and atraumatic Eye: COMMON NORMALS: Equal, round and reactive pupils present PUPIL: Yes Equal, round and reactive pupils present Neck/C-Spine: COMMON NORMALS: full ROM, no lymphadenopathy and no JVD Lymph: LYMPHATIC: no lymphadenopathy noted and no lymphedema noted Chest: COMMONS NORMALS: normal palpation of entire chest wall Resp: COMMON NORMALS: normal respiratory effort, No retractions and clear to auscultation bilaterally AUSCULTATION: clear to auscultation bilaterally Cardio: COMMON NORMALS: no JVD, regular rate, regular rhythm, No gallops present (Cardio), No murmurs present (Cardio) and No rub (Cardio) RATE: regular rate RHYTHM: regular rhythm GI: COMMON NORMALS: Soft to palpation, non-tender and no masses PALPATION: Yes Soft to palpation Extremity: COMMON NORMALS: normal to inspection Neuro: COMMON NORMALS: patient oriented x3 Psych: COMMON NORMALS: mental status grossly normal and Normal thought process present THOUGHT PROCESS: Normal thought process present Skin: COMMON NORMALS: no rashes or lesions noted, no wounds and turgor normal GENERAL SKIN EXAM: no rashes or lesions noted and turgor normal Discharge Data Studies Completed and Pending Completed Studies During Hospitalization Category Date Time Status CT angio chest abd [id number] Stat Cat Scan 03/26/25 18:57 Completed XR chest 1V portable [id number] Stat Exams 03/26/25 18:42 Completed Pending at discharge Category Date Time Status Basic Metabolic Panel AM LABS Lab 03/28/25 04:00 Ordered Basic Metabolic Panel AM LABS Lab 03/29/25 04:00 Ordered Lipoprotein (a) Routine Lab 03/26/25 23:31 Received Radiology Impressions Chest X-Ray 03/26/25 18:42 IMPRESSION: No acute findings. Chest/Abdomen CTA 03/26/25 18:57 IMPRESSION: 1. No evidence of aortic aneurysm, dissection or penetrating ulcer. Extensive atherosclerotic calcification throughout the aorta without significant aortic stenosis. 2. Moderate bilateral renal artery stenosis. 3. Mild stenosis at the origins of the celiac trunk and SMA. Moderate stenosis at the origin of the PAUL. 4. No evidence of pulmonary embolus. Prominent left pulmonary artery trunk raising the question of pulmonary arterial hypertension. 5. Prominent mitral annulus calcification. 6. Bibasilar atelectatic changes straight no consolidation. 7. Hepatomegaly. 8. 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 ADDENDUM: 03/26/252147 As of 9:39 p.m. on 03/26/2025, Anna Fritz confirmed that Morgan Orourke has received the exam report, is aware of the critical finding, and indicated no conference call was necessary to discuss the exam findings. Laboratory Results WBC 4.99 10^3/uL (3.29-11.43) 03/26/25 18:15 RBC 4.83 10^6/uL (3.85-5.65) 03/26/25 18:15 Hgb 15.00 g/dL (11.27-16.99) 03/26/25 18:15 Hct 44.1 % (36-47) 03/26/25 18:15 MCV 91.3 fl (85-98) 03/26/25 18:15 MCH 31.1 pg (27-33) 03/26/25 18:15 MCHC 34.0 g/dL (30-55) 03/26/25 18:15 RDW 11.7 % (12.1-15.1) L 03/26/25 18:15 Plt Count 226 10^3/cmm (157-399) 03/26/25 18:15 MPV 9.6 fL (7.4-10.4) 03/26/25 18:15 Neut % (Auto) 67.8 % 03/26/25 18:15 Lymph % (Auto) 20.4 % 03/26/25 18:15 [place] % (Auto) 8.0 % 03/26/25 18:15 Eos % (Auto) 2.2 % 03/26/25 18:15 Baso % (Auto) 1.0 % 03/26/25 18:15 Neut # (Auto) 3.38 10^3/uL (1.8-7.7) 03/26/25 18:15 Lymph # (Auto) 1.0 10^3/uL (0.8-4.8) 03/26/25 18:15 [place] # (Auto) 0.4 10^3/uL (0.2-0.9) 03/26/25 18:15 Eos # (Auto) 0.1 10^3/uL (0.0-0.8) 03/26/25 18:15 Baso # (Auto) 0.1 10^3/uL (0.0-0.1) 03/26/25 18:15 Nucleated RBC % (auto) 0 % 03/26/25 18:15 Nucleated RBCs # 0.0 /100WBC 03/26/25 18:15 Sodium 135 mmol/L (136-145) L 03/27/25 00:44 Potassium 4.1 mmol/L (3.5-5.1) 03/27/25 00:44 Chloride 100 mmol/L (98-107) 03/27/25 00:44 Carbon Dioxide 24 mmol/L (22-29) 03/27/25 00:44 Anion Gap 15.1 (5-19) 03/27/25 00:44 BUN 18 mg/dL (8-23) 03/27/25 00:44 Creatinine 0.6 mg/dL (0.5-0.9) 03/27/25 00:44 GFR Calculation Not Reportable 03/27/25 00:44 Glucose 173 mg/dL (65-115) H 03/27/25 00:44 Calculated Osmolality 286 mOsm/kg (285-295) 03/27/25 00:44 Calcium 9.8 mg/dL (8.5-10.5) 03/27/25 00:44 Total Bilirubin 0.6 mg/dL (0.15-1.2) 03/26/25 18:15 AST 17 U/L (0-32) 03/26/25 18:15 ALT 14 U/L (0-33) 03/26/25 18:15 Alkaline Phosphatase 74 U/L (35-105) 03/26/25 18:15 Troponin T Baseline 10 ng/L (0-10) 03/26/25 18:15 Troponin T 120 Minute 9.71 ng/L (0-10) 03/26/25 20:10 Delta Troponin T -0.29 ABS# (0-10) L 03/26/25 20:10 Troponin T Hi Sens 6Hr 12.81 ng/L (0-10) H 03/27/25 00:44 Troponin T Hi Sens 6Hr Delta 2.81 ng/L (0-12) 03/27/25 00:44 C-React Prot High Sens < 0.150 mg/dL (0.0-0.3) 03/27/25 00:44 NT-Pro-B Natriuret Pep 268 pg/mL (0-125) H 03/26/25 18:15 Total Protein 7.1 g/dL (6.6-8.7) 03/26/25 18:15 Albumin 4.8 g/dL (3.5-5.2) 03/26/25 18:15 Globulin 2.3 g/dL (1.3-4.6) 03/26/25 18:15 Lipase 52 U/L (13-60) 03/27/25 00:44 Vitals Last Vital Signs Temp 98.0 F 03/27/25 07:17 Pulse 65 03/27/25 07:17 Resp 26 H 03/27/25 07:17 BP 161/55 03/27/25 07:17 Pulse Ox 97 03/27/25 07:17 O2 Del Method Room Air 03/27/25 03:25 Discharge Plan Discharge Patient Disposition: Home Condition: Stable Prescriptions: New telmisartan 40 mg tablet 40 mg PO DAILY Qty: 30 2RF labetalol 100 mg tablet 100 mg PO BID Qty: 60 2RF Continued Complete MV Adult 50 Plus 0.4 mg-300 mcg- 250 mcg tablet 1 tab PO DAILY amoxicillin 500 mg tablet 500 mg PO Q12H Qty: 14 0RF acetaminophen [Tylenol Extra Strength] 500 mg tablet 500 mg PO BID PRN (Reason: Pain) cholecalciferol (vitamin D3) 25 mcg (1,000 unit) capsule 125 mcg PO DAILY nitroglycerin 0.4 mg tablet, sublingual 0.4 mg sublingual Q5M PRN (Reason: Chest Pain) Qty: 30 3RF (DME) night splint See Rx Instructions .Route .MEDSUPPLY Qty: 1 0RF Rx Instructions: As directed (DME) Auto-Titrating CPAP Device See Rx Instructions .Route Qty: 1 0RF Rx Instructions: As directed clopidogrel 75 mg tablet See Rx Instructions .ROUTE .COMPLEX Qty: 90 3RF Dose Instruction: Take 1 tablet by mouth once daily Rx Instructions: Take 1 tablet by mouth once daily Discontinued lisinopril 20 mg tablet 20 mg PO BID Discharge Order = DC NOW: Discharge Order (Routine); Ordered 03/27/25 Ordered By: Hardeep Longoria Referrals: Florencia Ramirez MD [Primary Care Provider, Family Practice] - 04/07/25 2:00 pm Discharge Diet: Usual diet Discharge Activity: Resume usual activity Patient Instructions: Abdominal Pain (ED), Opioid Safety, Patient Portal & Kari Instructions Activity Restrictions/Additional Instructions: Follow-up to recheck your blood pressure with your doctor in 2 to 3 days. Come back if blood pressure [id number]. Come back if you change your mind for any reason. Come back with headache or chest pain or abdominal pain, fever or vomiting, black or bloody stools, confusion, weakness in your arms or legs, change in vision, any worse or concerns. Follow-up on your test results with your doctor. Discharge Attestations Time Spent in Discharge Care*: greater than 30 min Specific Discharge Activities: educating patient, discussing with pcp/other providers, discussing with adult protective caseworker/social workers/dc planners, documenting/other paperwork and evaluating patient/reviewing data Quality Metrics Clinical Quality Measures [ No reported AMI, CVA or VTE this stay] Coding Level of Care Code Acute Code for Chg Fwd Diagnoses Hypertensive urgency I16.0 Elevated lipase R74.8 Acute chest pain R07.9 Coronary artery disease I25.10 Hyperlipidemia E78.5 Mesenteric angina K55.1
--- NOTE | 2025-03-27 14:28 | PC.NURSE ---
discharge instructions given and explained to pt.she verb understanding of instructions.discharged via w/c to exit at this time.daughter to drive pt home.
--- OUTSIDE RECORDS SUMMARY | 2025-03-27 16:38 | XMS_ITS | Encounter Summary ---
Author Organization [facility] Address [address] [place] [address] Care Team Providers Care Type Soldering Machine Tender Name Role Phone Cornelius Hansen NP Primary Care Provider Encounter Details Date Type Department Care Team (Latest Contact Info) Description 01/25/2000 Outpatient Historical HIS [facility] Rodney Kay MD [address] [place] [address] Other, multiple, and unspecified sites, insect bite, nonvenomous, without mention of infection(919.4) (Primary Dx); Allergic rhinitis, cause unspecified Social History Tobacco Use Types Packs/Day Years Used Date Smoking Tobacco: Never Assessed Comments Unknown Sex and Gender Information Value Date Recorded Sex Assigned at Not on file Legal Sex 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
--- OUTSIDE RECORDS SUMMARY | 2025-03-27 16:38 | XMS_ITS | Encounter Summary ---
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
--- OUTSIDE RECORDS SUMMARY | 2025-03-27 16:38 | XMS_ITS | Encounter Summary ---
Author Organization [facility] Address [address] [place] [address] Care Team Providers Care Director Craft Center Name Role Phone Cornelius Hansen NP Primary Care Provider [phone] Encounter Details Date Type Department Care Team (Latest Contact Info) Description 03/11/2002 Outpatient Historical HIS [facility] Rodney Kay MD [address] [place] [address] ACUTE SINUSITIS NOS (Primary Dx) Social History Tobacco Use Types Packs/Day Years Used Date Smoking Tobacco: Never Assessed Comments Unknown Sex and Gender Information Value Date Recorded Sex Assigned at Not on file 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
--- OUTSIDE RECORDS SUMMARY | 2025-03-27 16:38 | XMS_ITS | Encounter Summary ---
Author Organization [facility] Address [address] [place] [address] Care Team Providers Care Landscape Supervisor Name Role Phone Cornelius Hansen NP Primary Care Provider [phone] Encounter Details Date Type Department Care Team (Latest Contact Info) Description 09/19/2001 Outpatient Historical HIS 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
--- OUTSIDE RECORDS SUMMARY | 2025-03-27 16:38 | XMS_ITS | Encounter Summary ---
Author Organization [facility] Address [address] [place] [address] Care Team Providers Care Field Care Manager Name Role Phone Cornelius Hansen NP Primary Care Provider [phone]- [phone] Encounter Details Date Type Department Care Team (Latest Contact Info) Description 04/12/2004 Outpatient 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
--- OUTSIDE RECORDS SUMMARY | 2025-03-27 16:38 | XMS_ITS | Patient Health Record ---
Author Organization [facility] Address [address] [place] [address] Support Name Relationship Address Phone Ana Cristina Stephens Guarantor Unknown [phone] Allergies Allergen (clinical drug ingredient) Drug/Non Drug [...] Notes Start Date End Date Status Nystatin 615036 UNT/ML Topical Cream Nystatin 724362 UNT/ML Topical Cream 06/20/2016 Active Flonase Flonase 06/20/2016 Active Surfak Stool Softener Surfak Sto ol Softener 04/28/2016 Active 100 ACTUAT Beclomethasone Dipropionate 0.04 MG/ACTUAT Metered Dose Inhaler [Qvar] 100 ACTUAT Beclomethasone Dipropionate 0.04 MG/ACTUAT Metered Dose Inhaler [Qvar] 04/28/2016 Active Potassium gluconate 2.5 MEQ Oral Tablet Potassium gluconate 2.5 MEQ Oral Tablet 04/28/2016 Active Methenamine 162 MG / Sodium Salicylate 162.5 MG Oral Tablet [Cystex] Methenamine 162 MG / Sodium Salicylate 162.5 MG Oral Tablet [Cystex] 07/18/2016 Active Lisinopril 10 MG Oral Tablet Lisinopril 10 MG Oral Tablet 06/20/2016 Active Metoclopramide 10 MG Oral Tablet [...] Fluticasone propionate 0.05 MG/ACTUAT Metered Dose Nasal [place] Fluticasone propionate 0.05 MG/ACTUAT Metered Dose Nasal [place] 04/28/2016 Active Aspirin Aspirin 04/28/2016 Active Ventolin Ventolin 06/20/2016 Active Social History Social History Additional Details Category Social Info Options Details zzMigrated Social History Migrated Social History Smoking Status:Never smoked tobacco (finding) Plan Of Treatment No Information
--- OUTSIDE RECORDS SUMMARY | 2025-03-27 16:38 | XMS_ITS | Encounter Summary ---
Author Organization [facility] Address [address] [place] [address] Care Team Providers Care Military Cook Name Role Phone Cornelius Hansen NP Primary Care Provider [phone] Encounter Details Date Type Department Care Team (Latest Contact Info) Description 06/27/2000 Outpatient Historical HIS [facility] Rodney Kay MD [address] [place] [address] Urinary tract infection, site not specified (Primary Dx) Social History Tobacco Use Types Packs/Day Years Used Date Smoking Tobacco: Never Assessed Comments Unknown Sex and Gender Information Value Date Recorded Sex Assigned at Not on file 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
--- OUTSIDE RECORDS SUMMARY | 2025-03-27 16:38 | XMS_ITS | Encounter Summary ---
Author Organization [facility] Address [address] [place] [address] Care Team Providers Care Business Development Professional Name Role Phone Cornelius Hansen NP Primary Care Provider [phone] Encounter Details Date Type Department Care Team (Late st Contact Info) Description 08/30/2018 Ancillary Orders [facility] Orthopedics - Orthopedic [facility] [address] [place] [address] Landry Dugan MD [address] [place] [address] [place] [address] Left hip pain Social History Tobacco Use Types Packs/Day Years Used Date Smoking Tobacco: Never Smokeless Tobacco: Never Comments Unknown Sex and Gender Information Value Date Recorded Sex Assigned at Not on file Legal 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 [...] thigh documented in this encounter Care Teams Business Development Professional Relationship Specialty Start Date End Date Cornelius Hansen NP [address] [place] [phone] PCP - General NURSE PRACTITIONER 09/18/18 documented as of this encounter
--- OUTSIDE RECORDS SUMMARY | 2025-03-27 16:38 | XMS_ITS | Encounter Summary ---
Author Organization [facility] Address [address] [place] [address] Care Team Providers Care Fire Safety Inspector Name Role Phone Cornelius Hansen NP Primary Care Provider Encounter Details Date Type Department Care Team (Latest Contact Info) Description 10/18/2001 Outpatient Historical HIS [facility] Marko Dunham MD [address], [place] [address] ACUTE SINUSITIS NOS (Primary Dx) Social History Tobacco Use Types Packs/Day Years Used Date Smoking Tobacco: Never Assessed Comments Unknown Sex and Gender Information Value Date Recorded Sex Assigned at Not on file Legal 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
--- OUTSIDE RECORDS SUMMARY | 2025-03-27 16:38 | XMS_ITS | Encounter Summary ---
Author Organization [facility] Address [address] [place] [address] Care Team Providers Care Bottle Inspector Name Role Phone Cornelius Hansen NP Primary Care Provider [phone]- [phone] Encounter Details Date Type Department Care Team (Latest Contact Info) Description 11/27/2000 Outpatient Historical HIS [facility] Rodney Kay MD [address] [place] [address] Allergic rhinitis, cause unspecified (Primary Dx); Acute upper respiratory infections of unspecified site Social History Tobacco Use Types Packs/Day Years Used Date Smoking Tobacco: Never Assessed Comments Unknown Sex and Gender Information Value Date Recorded Sex Assigned at Not on file 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
--- OUTSIDE RECORDS SUMMARY | 2025-03-27 16:38 | XMS_ITS | Encounter Summary ---
Author Organization [facility] Address [address] [place] [address] Care Team Providers Care Drum Puller Name Role Phone Cornelius Hansen NP Primary Care Provider +1- [phone] Encounter Details Date Type Department Care Team (Latest Contact Info) Description 09/08/2000 Outpatient Historical HIS [facility] Rodney Kay MD [address] [place] [address] Bronchitis, not specified as acute or chronic (Primary Dx) Social History Tobacco Use Types Packs/Day Years Used Date Smoking Tobacco: Never Assessed Comments Unknown Sex and Gender Information Value Date Recorded Sex Assigned at Not on file Legal 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
--- OUTSIDE RECORDS SUMMARY | 2025-03-27 16:38 | XMS_ITS | Patient Health Record ---
Author Organization [facility] Address [address] [place] [address] Support Name Relationship Address Phone Ana Cristina Stephens Guarantor Unknown [phone] Allergies Allergen (clinical drug ingredient) Drug/Non Drug [...] Date Status Ketotifen Ketotifen *Reord er from [facility] for eRx and Interaction Alerts* 04/28/2016 Active 100 ACTUAT Beclomethasone Dipropionate 0.04 MG/ACTUAT Metered Dose Inhaler [Qvar] 100 ACTUAT Beclomethasone Dipropionate 0.04 MG/ACTUAT Metered Dose Inhaler [Qvar] *Reorder from [facility] for eRx and Interaction Alerts* 04/28/2016 Active Methenamine 162 MG / Sodium Salicylate 162.5 MG Oral Tablet [Cystex] Methenamine 162 MG / Sodium Salicylate 162.5 MG Oral Tablet [Cystex] *Reorder from [facility] for eRx and Interaction Alerts* 07/18/2016 Active CHROMIUM PICOLINATE 0.8 MG Oral Tablet CHROMIUM PICOLINATE 0.8 MG Oral Tablet *Reorder from [facility] for eRx and Interaction Alerts* 06/20/2016 Active Potassium Gluconate 2.5 MEQ Oral Tablet Potassium gluconate 2.5 MEQ Oral Tablet *Reorder from [facility] for eRx and Interaction Alerts* 04/28/2016 Active Aspirin Aspirin *Pick strength-form from [facility] for eRX* 04/28/2016 Active Prevacid Prevacid *Pick strength-form from [facility] for eRX* 04/28/2016 Active Magnesium Oxide Magnesium Oxide *Pick strength-form from [facility] for eRX* 06/20/2016 Active Ventolin Ventolin *Reorde r from [facility] for eRx and Interaction Alerts* 06/20/2016 Active Nystatin 674335 UNT/ML Topical Cream Nystatin 658704 UNT/ML Topical Cream *Reorder from [facility] for eRx and Interaction Alerts* 06/20/2016 Active Metoclopramide 10 MG Oral Tablet Metoclopramide 10 MG Oral Tablet *Reorder from [facility] for eRx and Interaction Alerts* 04/28/2016 Active Martine Martine *Reorder from [facility] for eRx and Interaction Alerts* 04/28/2016 Active Magnesium Oxide 250 MG Oral Tablet Magnesium Oxide 250 MG Oral Tablet *Reorder from [facility] for eRx and Interaction Alerts* 04/28/2016 Active Lisinopril 10 MG Oral Tablet Lisinopril 10 MG Oral Tablet *Reorder from [facility] for eRx and Interaction Alerts* 04/28/2016 Active Flonase Flonase *Reorder from [facility] for eRx and Interaction Alerts* 06/20/2016 Active Surfak Stool Softener Surfak Sto ol Softener *Reorder from [facility] for eRx and Interaction Alerts* 04/28/2016 Active CHROMIUM PICOLINATE 0.5 MG Oral Tablet CHROMIUM PICOLINATE 0.5 MG Oral Tablet *Reorder from [facility] for eRx and Interaction Alerts* 04/28/2016 Active Fluticasone propionate 0.05 MG/ACTUAT Metered Dose Nasal [place] Fluticasone propionate 0.05 MG/ACTUAT Metered Dose Nasal [place] *Reorder from [facility] for eRx and Interaction Alerts* 04/28/2016 Active Plan Of Treatment No Information
--- OUTSIDE RECORDS SUMMARY | 2025-03-27 16:38 | XMS_ITS | Patient Health Record ---
Author Organization [facility] Address [address] [place] [address] Support Name Relationship Address Phone Chloe Bansal Emergency Contact Unknown Ana Cristina Stephens Guarantor Unknown [phone] Allergies Allergen (clinical drug ingredient) Drug/Non Drug Allergy documented on EMR Reaction Allergy Type Onset Date Status cephalexin Cephalexin intolerance Drug Allergy Act maruqes doxycycline Doxycycline intolerance Drug Allergy A ctive [...] MEDICARE NORIDIAN ATTENTION CLAIMS DEPT [address] [place] [address] [id number] Ana Cristina Stephens Self - patient is the insured [employer] MEDICARE SUPP ONLY [address] [place] [address] [id number] Ana Cristina Stephens Self - patient is the insured
--- OUTSIDE RECORDS SUMMARY | 2025-03-27 16:38 | XMS_ITS | Encounter Summary ---
Author Organization [facility] Address [address] [place] [address] Care Team Providers Care Freight Unloader Name Role Phone Cornelius Hansen NP Primary Care Provider +1- [phone] Encounter Details Date Type Department Care Team (Latest Contact Info) Description 12/30/1999 Outpatient Historical HIS [facility] Rodney Kay MD [address] [place] [address] Acute sinusitis, unspecified (Primary Dx) Social History Tobacco Use Types Packs/Day Years Used Date Smoking Tobacco: Never Assessed Comments Unknown Sex and Gender Information Value Date Recorded Sex Assigned at Not on file 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
--- OUTSIDE RECORDS SUMMARY | 2025-03-27 16:38 | XMS_ITS | Clinical Summary ---
Author Organization [facility] Address [address] 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 Gender Identity Not on file Sexual Orientation Not on file Last Filed Vital Signs Vital Sign Reading Time Taken Comments Blood Pressure 154/79 08/30/2018 1:10 PM CORPORATE STATISTICAL FINANCIAL ANALYST Pulse 76 08/30/2018 1:10 PM CORPORATE STATISTICAL FINANCIAL ANALYST Temperature - - Respiratory Rate - - Oxygen Saturation - - Inhaled Oxygen Concentration - - Weight 87.5 kg (193 lb) 08/30/2018 1:10 PM CORPORATE STATISTICAL FINANCIAL ANALYST Height 163.8 cm (5' 4.5 ) 08/30/2018 1:10 PM CORPORATE STATISTICAL FINANCIAL ANALYST Body Mass Index 32.62 08/30/2018 1:10 PM CORPORATE STATISTICAL FINANCIAL ANALYST Plan of Treatment Health Maintenance Due Date [...] 05/19/2026 05/19/2016 Colorectal Cancer Screening 05/19/[address] [place] [place] [address] MEDICARE PART A AND B [facility] Care Teams Director Electrical Engineering Relationship Specialty Start Date End Date Cornelius Hansen NP [address] [place] [phone] PCP - General NURSE PRACTITIONER 09/18/18
--- OUTSIDE RECORDS SUMMARY | 2025-03-27 16:38 | XMS_ITS | Clinical Summary ---
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
== END 2025-03-27 19:00 | disposition home or self-care (01) ==
LOC: ER 21:48 → CSU 23:28
PROVIDERS: Admitting Provider Internal Medicine; Emergency Provider Emergency Medicine; PCP Family Medicine; Visit Provider Internal Medicine
DX: I16.0 Hypertensive urgency (principal); R74.8 Abnormal levels of other serum enzymes; I25.10 Atherosclerotic heart disease of native coronary artery without angina pectoris; E78.2 Mixed hyperlipidemia; K55.1 Chronic vascular disorders of intestine; Z79.02 Long term (current) use of antithrombotics/antiplatelets; G47.33 Obstructive sleep apnea (adult) (pediatric); F41.9 Anxiety disorder, unspecified; E66.9 Obesity, unspecified; Z68.30 Body mass index [BMI] 30.0-30.9, adult; J45.909 Unspecified asthma, uncomplicated; K21.9 Gastro-esophageal reflux disease without esophagitis; Z82.49 Family history of ischemic heart disease and other diseases of the circulatory system; Z86.16 Personal history of COVID-19
CPT/HCPCS: 36415; 71045; 71275; 74175; 80048; 80053; 83690; 83695; 83880; 84484; 85025; 86141; 93005; 96374; 96375; 96376; 99285; G0378; J0360; J3490; J7030; J9999

== ENCOUNTER → 2025-04-09 14:33 | Outpatient (BNVA) | payer MEDICARE, OTHER, SELFPAY | PROVIDERS: PCP Family Medicine; Visit Provider Internal Medicine Cardiovascular Disease | DX: I10 Essential (primary) hypertension (principal); I25.118 Atherosclerotic heart disease of native coronary artery with other forms of angina pectoris; I65.22 Occlusion and stenosis of left carotid artery; I73.9 Peripheral vascular disease, unspecified; E78.2 Mixed hyperlipidemia; Z78.9 Other specified health status | CPT/HCPCS: 99214 ==

== ENCOUNTER → 2025-04-21 10:04 | Outpatient (BNVA) | payer MEDICARE, OTHER, SELFPAY | PROVIDERS: PCP Family Medicine; Visit Provider Family Medicine | DX: R30.0 Dysuria (principal) | CPT/HCPCS: 81000 ==

== ENCOUNTER → 2025-04-28 07:52 | Outpatient (BNVA) | payer MEDICARE, OTHER, SELFPAY | PROVIDERS: PCP Family Medicine; Visit Provider Internal Medicine Cardiovascular Disease | DX: I25.10 Atherosclerotic heart disease of native coronary artery without angina pectoris (principal); I10 Essential (primary) hypertension; I77.9 Disorder of arteries and arterioles, unspecified; I73.9 Peripheral vascular disease, unspecified; E78.2 Mixed hyperlipidemia; I70.1 Atherosclerosis of renal artery; Z78.9 Other specified health status | CPT/HCPCS: 99214 ==

== ENCOUNTER → 2025-05-30 11:36 | Outpatient (BNVA) | payer MEDICARE, OTHER, SELFPAY | PROVIDERS: PCP Family Medicine; Visit Provider Family Medicine | DX: J02.9 Acute pharyngitis, unspecified (principal) | CPT/HCPCS: 87070 ==

== ENCOUNTER 2025-05-31 13:27 | Emergency (ER) | payer MEDICARE, OTHER, SELFPAY ==
[2025-05-31 13:29] VITALS: BP 192/65; PULSE 64; RESP 16; TEMP 36.9; O2SAT 98; BMI 28.7
--- OUTSIDE RECORDS SUMMARY | 2025-05-31 13:36 | XMS_ITS | Encounter Summary ---
Author Organization [facility] Address [address] [place] [address] Care Team Providers Care Foam Rubber Curer Name Role Phone Cornelius Hansen NP Primary Care Provider +1- [phone] Encounter Details Date Type Department Care Team (Late st Contact Info) Description 08/30/2018 Ancillary Orders [facility] Orthopedics - Orthopedic [facility] [address] [place] [address] Landry Dugan MD [address] [place] [address] Left hip pain Social History Tobacco Use Types Packs/Day Years Used Date Smoking Tobacco: Never Smokeless Tobacco: Never Comments Unknown Sex and Gender Information Value Date Recorded Sex Assigned at Not on file 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 [...] thigh documented in this encounter Care Teams Foam Rubber Curer Relationship Specialty Start Date End Date Cornelius Hansen NP [address] [place] [phone] PCP - General NURSE PRACTITIONER 09/18/18 documented as of this encounter
--- OUTSIDE RECORDS SUMMARY | 2025-05-31 13:36 | XMS_ITS | Patient Health Record ---
Author Organization [facility] Address [address] [place] [address] Support Name Relationship Address Phone Ana Cristina Stephens Guarantor Unknown [phone] Allergies Allergen (clinical drug ingredient) Drug/Non Drug [...] Notes Start Date End Date Status Nystatin 052892 UNT/ML Topical Cream Nystatin 209963 UNT/ML Topical Cream 06/20/2016 Active Flonase Flonase [...] Fluticasone propionate 0.05 MG/ACTUAT Metered Dose Nasal [place] Fluticasone propionate 0.05 MG/ACTUAT Metered Dose Nasal [place] 04/28/2016 Active Aspirin Aspirin 04/28/2016 Active Ventolin Ventolin 06/20/2016 Active Social History Social History Additional Details Category Social Info Options Details zzMigrated Social History Migrated Social History Smoking Status:Never smoked tobacco (finding) Plan Of Treatment No Information
--- OUTSIDE RECORDS SUMMARY | 2025-05-31 13:37 | XMS_ITS | Encounter Summary ---
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
--- OUTSIDE RECORDS SUMMARY | 2025-05-31 13:37 | XMS_ITS | Encounter Summary ---
Author Organization [facility] Address [address] [place] [address] Care Team Providers Care Sliding Joint Maker Name Role Phone Cornelius Hansen NP Primary Care Provider Encounter Details Date Type Department Care Team (Latest Contact Info) Description 03/11/2002 Outpatient Historical HIS [facility] Rodney Kay MD [address] [place] [address] ACUTE SINUSITIS NOS (Primary Dx) Social History Tobacco Use Types Packs/Day Years Used Date Smoking Tobacco: Never Assessed Comments Unknown Sex and Gender Information Value Date Recorded Sex Assigned at Not on file Legal Sex Female 5:20 AM FLUTE GRINDER Gender Identity Not on file Sexual Orientation Not on file documented as of this encounter Plan of Treatment Not on file documented as of this encounter Visit Diagnoses Diagnosis Acute sinusitis, unspecified- Primary documented in this encounter Care Teams Sliding Joint Maker Relationship Specialty Start Date End Date Cornelius Hansen NP [address] [place] [phone] PCP - General NURSE PRACTITIONER 09/18/18 documented as of this encounter
--- OUTSIDE RECORDS SUMMARY | 2025-05-31 13:37 | XMS_ITS | Encounter Summary ---
Author Organization [facility] Address [address] [place] [address] Care Team Providers Care Warhead Maintenance Specialist Name Role Phone Cornelius Hansen NP Primary Care Provider +1- [phone] Encounter Details Date Type Department Care Team (Latest Contact Info) Description 09/08/2000 Outpatient Historical HIS [facility] Rodney Kay MD [address] [place] [address] Bronchitis, not specified as acute or chronic (Primary Dx) Social History Tobacco Use Types Packs/Day Years Used Date Smoking Tobacco: Never Assessed Comments Unknown Sex and Gender Information Value Date Recorded Sex Assigned at Not on file 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
--- OUTSIDE RECORDS SUMMARY | 2025-05-31 13:37 | XMS_ITS | Encounter Summary ---
Author Organization [facility] Address [address] [place] [address] Care Team Providers Care Bundle Wrapper Name Role Phone Cornelius Hansen NP Primary Care Provider Encounter Details Date Type Department Care Team (Latest Contact Info) Description 01/25/2000 Outpatient Historical HIS 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
--- OUTSIDE RECORDS SUMMARY | 2025-05-31 13:37 | XMS_ITS | Patient Health Record ---
Author Organization [facility] Address [address] [place] [address] Support Name Relationship Address Phone Chloe Bansal Emergency Contact Unknown Ana Cristina Stephens Guarantor Unknown [phone] Allergies Allergen (clinical drug ingredient) Drug/Non Drug [...] MEDICARE NORIDIAN ATTENTION CLAIMS DEPT [address] [place] [address] [id number] Ana Cristina Stephens Self - patient is the insured [employer] MEDICARE SUPP ONLY [address] [place] [id number] Ana Cristina Stephens Self - patient is the insured
--- OUTSIDE RECORDS SUMMARY | 2025-05-31 13:37 | XMS_ITS | Encounter Summary ---
Author Organization [facility] Address [address] [place] [address] Care Team Providers Care Repairer Wood Furniture Name Role Phone Cornelius Hansen NP Primary Care Provider +1- [phone] Encounter Details Date Type Department Care Team (Latest Contact Info) Description 04/12/2004 Outpatient [facility] Oral and Maxillo Surgery[address] [place] [address] Yordy Souza, PhD NO ADDRESS ON FILE RETAINED DENTAL ROOT (Primary Dx) Social History Tobacco Use Types Packs/Day Years Used Date Smoking Tobacco: Never Assessed Comments Unknown Sex and Gender Information Value Date Recorded Sex Assigned at Not on file 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
--- OUTSIDE RECORDS SUMMARY | 2025-05-31 13:37 | XMS_ITS | Encounter Summary ---
Author Organization 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
--- OUTSIDE RECORDS SUMMARY | 2025-05-31 13:37 | XMS_ITS | Patient Health Record ---
Author Organization [facility] Address [address] [place] [address] Support Name Relationship Address Phone Ana Cristina Stephens Guarantor Unknown [phone] Allergies Allergen (clinical drug ingredient) Drug/Non Drug [...] Date Status Ketotifen Ketotifen *Reord er from [facility] for eRx and Interaction Alerts* 04/28/2016 Active 100 ACTUAT Beclomethasone Dipropionate 0.04 MG/ACTUAT Metered Dose Inhaler [Qvar] 100 ACTUAT Beclomethasone Dipropionate 0.04 MG/ACTUAT Metered Dose Inhaler [Qvar] *Reorder from [facility] for eRx and Interaction Alerts* 04/28/2016 Active Methenamine 162 MG / Sodium Salicylate 162.5 MG Oral Tablet [Cystex] Methenamine 162 MG / Sodium Salicylate 162.5 MG Oral Tablet [Cystex] *Reorder from [facility] for eRx and Interaction Alerts* 07/18/2016 Active CHROMIUM PICOLINATE 0.8 MG Oral Tablet CHROMIUM PICOLINATE 0.8 MG Oral Tablet *Reorder from [facility] for eRx and Interaction Alerts* 06/20/2016 Active Potassium Gluconate 2.5 MEQ Oral Tablet Potassium gluconate 2.5 MEQ Oral Tablet *Reorder from [facility] for eRx and Interaction Alerts* 04/28/2016 Active Aspirin Aspirin *Pick strength-form from [facility] for eRX* 04/28/2016 Active Prevacid Prevacid *Pick strength-form from [facility] for eRX* 04/28/2016 Active Magnesium Oxide Magnesium Oxide *Pick strength-form from [facility] for eRX* 06/20/2016 Active Ventolin Ventolin *Reorde r from [facility] for eRx and Interaction Alerts* 06/20/2016 Active Nystatin 872552 UNT/ML Topical Cream Nystatin 950570 UNT/ML Topical Cream *Reorder from [facility] for eRx and Interaction Alerts* 06/20/2016 Active Metoclopramide 10 MG Oral Tablet Metoclopramide 10 MG Oral Tablet *Reorder from [facility] for eRx and Interaction Alerts* 04/28/2016 Active Martine Martine *Reorder from [facility] for eRx and Interaction Alerts* 04/28/2016 Active Magnesium Oxide 250 MG Oral Tablet Magnesium Oxide 250 MG Oral Tablet *Reorder from [facility] for eRx and Interaction Alerts* 04/28/2016 Active Lisinopril 10 MG Oral Tablet Lisinopril 10 MG Oral Tablet *Reorder from [facility] for eRx and Interaction Alerts* 04/28/2016 Active Flonase Flonase *Reorder from [facility] for eRx and Interaction Alerts* 06/20/2016 Active Surfak Stool Softener Surfak Sto ol Softener *Reorder from [facility] for eRx and Interaction Alerts* 04/28/2016 Active CHROMIUM PICOLINATE 0.5 MG Oral Tablet CHROMIUM PICOLINATE 0.5 MG Oral Tablet *Reorder from [facility] for eRx and Interaction Alerts* 04/28/2016 Active Fluticasone propionate 0.05 MG/ACTUAT Metered Dose Nasal [place] Fluticasone propionate 0.05 MG/ACTUAT Metered Dose Nasal [place] *Reorder from [facility] for eRx and Interaction Alerts* 04/28/2016 Active Plan Of Treatment No Information
--- OUTSIDE RECORDS SUMMARY | 2025-05-31 13:37 | XMS_ITS | Encounter Summary ---
Author Organization [facility] Address [address] [place] [address] Care Team Providers Care Filtration Plant Operator Name Role Phone Cornelius Hansen NP Primary Care Provider [phone] Encounter Details Date Type Department Care Team (Latest Contact Info) Description 06/27/2000 Outpatient Historical HIS [facility] Rodney Kay MD [address] [place] [address] Urinary tract infection, site not specified (Primary Dx) Social History Tobacco Use Types Packs/Day Years Used Date Smoking Tobacco: Never Assessed Comments Unknown Sex and Gender Information Value Date Recorded Sex Assigned at Not on file 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
--- OUTSIDE RECORDS SUMMARY | 2025-05-31 13:37 | XMS_ITS | Encounter Summary ---
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
--- OUTSIDE RECORDS SUMMARY | 2025-05-31 13:37 | XMS_ITS | Encounter Summary ---
Author Organization [facility] Address [address] [place] [address] Care Team Providers Care Document Management Analyst Name Role Phone Cornelius Hansen NP Primary Care Provider [phone]- [phone] Encounter Details Date Type Department Care Team (Latest Contact Info) Description 09/19/2001 Outpatient Historical HIS [facility] Rodney Kay MD [address] [place] [address] BRONCHITIS NOS (Primary Dx) Social History Tobacco Use Types Packs/Day Years Used Date Smoking Tobacco: Never Assessed Comments Unknown Sex and Gender Information Value Date Recorded Sex Assigned at Not on file 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
--- OUTSIDE RECORDS SUMMARY | 2025-05-31 13:37 | XMS_ITS | Encounter Summary ---
Author Organization [facility] Address [address] [place] [address] Care Team Providers Care Mortgage Loan Underwriter Name Role Phone Cornelius Hansen NP Primary Care Provider [phone]- [phone] Encounter Details Date Type Department Care Team (Latest Contact Info) Description 11/27/2000 Outpatient Historical HIS [facility] Rodney Kay MD [address] [place] [address] Allergic rhinitis, cause unspecified (Primary Dx); Acute upper respiratory infections of unspecified site Social History Tobacco Use Types Packs/Day Years Used Date Smoking Tobacco: Never Assessed Comments Unknown Sex and Gender Information Value Date Recorded Sex Assigned at Not on file 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
--- OUTSIDE RECORDS SUMMARY | 2025-05-31 13:37 | XMS_ITS | Clinical Summary ---
Author Organization [facility] Address [address] [place]: Epic Prelude ADT [facility] [address] Care Team Providers Care Materials Scheduler Name Role Phone Cornelius Hansen INFORMATICIST Primary Care Provider Allergies Active Allergy Reactions Criticality Noted Date Comments Erythromycin Nausea and Vomiting Low 08/30/2018 Nitrofurantoin Macrocrystalline Hives High 08/30/2018 Nitrofurantoin Monohyd/M-Cryst Hives High 08/30/2018 Sulfa (Sulfonamide Antibiotics) Other (See Comments) 08/30/2018 [place] Problems Medications ergocalciferol , vitamin D2, (VITAMIN D ORAL) Take by mouth. 9 Active clopidogreL (PLAVIX) 75 mg Tablet Take 75 mg by mouth daily. 4 Active vitamin A-vitamin C-vitamin E (OCUVITE) Tablet Take 1 Tablet by mouth daily. Active B-complex + vitamin C (SUPER B-C) Tablet Take 1 Tablet by mouth daily. Active aspirin (ECOTRIN EC) 81 mg Tablet, Delayed Release (E.C.) Take 81 mg by mouth daily. Active lisinopriL (PRINIVIL) 20 mg tablet Take 1 Tablet by mouth 2 times daily. 5 Active labetaloL (NORMODYNE) 200 mg tablet Take 1 Tablet (200 mg) by mouth 2 times daily. 60 Tablet 6 5 Active nitroglycerin (NITROSTAT) 0.4 mg Tablet, Sublingual Sublingual NTG is used as directed for chest pain. When you have chest pain. Take one tablet under the tongue for chest pain wait five minutes. If pain is not relieved you may take 2 nd tablet under the tongue. Wait 5 minutes if pain is not relieved take 3 rd tablet and seek emergency care. Do not drive self. 25 Tablet 1 5 Active cholecalcifero l, vitamin D3, 5,000 unit Take 400 Units by mouth every 7 days. 05/08/20 Discontinu ed(Patient choice) NITROGLYCERIN ORAL Take 0.4 mg by mouth 1 time daily as needed. 05/09/20 Discontinu ed(Alterna te therapy prescribed ) olmesartan-amL ODIPine-HCTZ (TRIBENZOR) 20-5-12.5 mg tablet Take 1 Tablet by mouth daily. 30 Tablet 11 4 05/08/20 Discontinu ed(Patient choice) labetaloL (NORMODYNE) 100 mg tablet Take 100 mg by mouth 2 times daily. 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 (Primary Dx); Benign hypertension; Mixed hyperlipidemia; PAD (peripheral artery disease) 05/06/2025 External Device Data [facility] ABSTRACTION Provider, Abstract 04/29/2025 External Device Data [facility] ABSTRACTION Provider, Abstract from Last 3 Months Social History Tobacco Use Types Packs/Day Years Used Date Smoking Tobacco: Never Smokeless Tobacco: Never Comments Unknown Sex and Gender Information Value Date Recorded Sex Assigned at Not on file Legal 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 Female 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 Gender Identity Not on file Sexual Orientation Not on file Last Filed Vital Signs Vital Sign Reading Time Taken Comments Blood Pressure 210/86 05/08/2025 3:25 PM CDT Pulse 56 05/08/2025 3:25 PM CDT Temperature - - Respiratory Rate - - Oxygen Saturation 97% 05/08/2025 3:25 PM CDT Inhaled Oxygen Concentration - - Weight 77.7 kg (171 lb 6.4 oz) 05/08/2025 3:25 P M CDT Height 163.8 cm (5' 4.5 ) 05/08/2025 3:25 PM CDT Body Mass Index 28.97 05/08/2025 3:25 PM CDT Plan of Treatment Upcoming Encounters Date Type Department Care Team (Late st Contact Info) Description 07/17/2025 8:30 AM GAME ENGINEER Office Visit [facility] [address] [facility] [address] [place] [phone] Jd Rose MD [address] [facility] [address] [place] [phone] Health Maintenance Due Date Last Done Comments FIT-DNA Q 3 years 1996 FIT/FOBT Q 1 year 1996 Flex Sig/CT Colonography Q 5 years 1996 PNEUMOCOCCAL VACCINE 50+ YEARS (1 of 1 - PCV) 03/06/20 01 ZOSTER VACCINE (1 of 2) 2001 DTAP/TDAP/TD VACCINES (1 - Tdap) 08/13/2003 08/12/20 03 RSV VACCINE (60+ or ) (1 - Risk 60-74 years 1-dose series) 2011 BREAST CANCER SCREENING 03/03/2017 03/03/2016 OSTEOPOROSIS SCREENING 03/03/2021 03/03/2016 INFLUENZA VACCINE (#1) 2025 COLORECTAL SCREENING 05/19/2026 05/19/2016 Colorectal Cancer Screening 05/19/[address] [place] [address] MEDICARE PART A AND B [employer] [id number] Care Teams Materials Scheduler Relationship Specialty Start Date End Date Cornelius Hansen NP [address] [place] [phone] PCP - General NURSE PRACTITIONER 09/18/18
--- OUTSIDE RECORDS SUMMARY | 2025-05-31 13:37 | XMS_ITS | Clinical Summary ---
Author Organization [facility] Address [address] 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 Gender Identity Not on file Sexual Orientation Not on file Last Filed Vital Signs Vital Sign Reading Time Taken Comments Blood Pressure 154/79 08/30/2018 1:10 PM AIR POLLUTION CONTROL ENGINEER Pulse 76 08/30/2018 1:10 PM AIR POLLUTION CONTROL ENGINEER Temperature - - Respiratory Rate - - Oxygen Saturation - - Inhaled Oxygen Concentration - - Weight 87.5 kg (193 lb) 08/30/2018 1:10 PM AIR POLLUTION CONTROL ENGINEER Height 163.8 cm (5' 4.5 ) 08/30/2018 1:10 PM AIR POLLUTION CONTROL ENGINEER Body Mass Index 32.62 08/30/2018 1:10 PM AIR POLLUTION CONTROL ENGINEER Plan of Treatment Health Maintenance Due Date [...] 05/19/2026 05/19/2016 Colorectal Cancer Screening 05/19/[address] [place] [address] MEDICARE PART A AND B [facility] Care Teams Securities Adviser Relationship Specialty Start Date End Date Cornelius Hansen NP [address] [place] [phone] PCP - General NURSE PRACTITIONER 09/18/18
--- NOTE | 2025-05-31 13:41 | ECG_ITS ---
[facility] Date: 2025-05-31 Pat Name: Ana Cristina Stephens Department: Room: Gender: Female Midwife Practitioner: : 1950 Requested By: Citlaly Lee Order Number: [id number] Taylor MD: Juventino Wylie M.D. Measurements Intervals [place] Rate: 61 P: 75 IN: 160 QRS: 6 QRSD: 105 T: 67 QT: 413 QTc: 418 Interpretive Statements SINUS RHYTHM Compared to ECG 03/27/2025 05:40:12 No significant changes Electronically Signed On 06-03-2025 19:32:56 CDT by Juventino Wylie M.D. [id number]
--- NOTE | 2025-05-31 13:41 | XRR_ITS ---
PROCEDURE INFORMATION: Exam: XR Chest Exam date and time: 05/31/2025 3:14 PM Age: 75 years old Clinical indication: Pain; Chest pressure; Additional info: Chest pain TECHNIQUE: Imaging protocol: Radiologic exam of the chest. Views: 1 view. COMPARISON: CT angio chest abd [id number] 03/26/2025 7:57 PM FINDINGS: Lungs: 15 mm right upper lobe calcified granuloma. Horizontal linear scar left lower lobe is unchanged. Pleural spaces: Unremarkable. No pleural effusion. No pneumothorax. Heart/Mediastinum: Unremarkable. No cardiomegaly. Bones/joints: Unremarkable. XR/XR chest 1V portable [id number] IMPRESSION: No acute findings.
[2025-05-31 14:54] LABS: Hematocrit 39.6 % (36-47); Hemoglobin 13.30 g/dL (11.27-16.99); Mean Corpuscular HGB Conc 33.6 g/dL (30-55); Mean Corpuscular Hemoglobin 31.3 pg (27-33); Mean Corpuscular Volume 93.2 fl (85-98); Nucleated Red Blood Cells % 0 %; Platelet Count 217 10^3/cmm (157-399); Red Blood Count 4.25 10^6/uL (3.85-5.65); White Blood Count 4.43 10^3/uL (3.29-11.43)
--- NOTE | 2025-05-31 15:14 | ED_ITS ---
Documented by User: Citlaly Vega MD 05/31/25 17:10 HPI - Chest Pain 2 General: Chief Complaint: Chest Pain Stated Complaint: spikes in BP, cp, angina, swollen glands in neck, Time Seen by Provider: 05/31/25 15:06 History of Present Illness: 75-year-old female with a history of chr onic low back pain, obstructive sleep apnea, carotid artery disease, hypertension, and coronary artery disease status post stents on Plavix who presents emergency room with worsening hypertension, chest discomfort and pain between her shoulder blades. This been going on for couple days now. She has been checking her blood pressure and has been as high as almost 200 systolic. She states she has a tightness through her back and some pressure in her chest and that is how she knew her blood pressure was up. She did take her home medications which helped for a little while. Related Data Home Medications ?Medication ?Instructions ?Recorded ?Confirmed acetaminophen 500 mg tablet 500 mg PO BID PRN Pain 05/31/25 (Tylenol Extra Strength) [id number]-fbj-lcisp acid 0.4 1 tab PO DAILY 07/01/22 mg-lycopene 300 mcg-lutein 250 mcg tablet (Complete Multivitamin Adult 50 Plus) cholecalciferol (vitamin D3) 25 125 mcg PO DAILY 04/1305/31/25 mcg (1,000 unit) capsule aspirin 81 mg tablet 81 mg PO DAILY 04/09/2505/14 omeprazole 20 mg capsule,delayed 20 mg PO DAILY 05/31/25 release clopidogrel 75 mg tablet 75 mg PO DAILY 05/31/2505/14 labetalol 200 mg tablet 200 mg PO BID 05/31/2505/31 Previous Rx's ?Medication ?Instructions ?Recorded nitroglycerin 0.4 mg sublingual 0.4 mg sublingual Q5M PRN Chest 03/21/23 tablet Pain #30 tabs CPAP (Auto-Titrating CPAP) #1 ea 06/22/23 night splint #1 ea 10/10/23 olopatadine 0.2 % eye drops 1 drp ophthalmic (eye) MENDY LY PRN 03/31/25 (Pataday Once Daily Relief) itching #2.5 mL lisinopril 20 mg tablet 20 mg PO BID #180 tabs 04/23 Allergies Allergy/AdvReac Type Severity Reaction Status Date / Time rosuvastatin Allergy Severe myalgia Verified 05/31/25 13:36 carvedilol Allergy exhaustion Verified 05/31/25 13:36 doxycycline Allergy rash Verified 05/31/25 13:36 erythromycin base Allergy Rash Verified 05/31/25 13:36 nitrofurantoin (From Allergy rash Verified 05/31/25 13:36 Macrodantin) Sulfa (Sulfonamide Allergy ALGY-Hives Verified 05/31/25 13:36 Antibiotics) metformin AdvReac Severe Diarrhea Verified 05/31/25 13:36 atorvastatin (From Lipitor) AdvReac Myalgia Verified 05/31/25 13:36 Review of Systems 2 Narrative: Constitutional symptoms: Negative except as documented in HPI. Skin symptoms: Negative except as documented in HPI. Eye symptoms: Negative except as documented in HPI. ENMT symptoms: Negative except as documented in HPI. Respiratory symptoms: Negative except as documented in HPI. Cardiovascular symptoms: Negative except as documented in HPI. Gastrointestinal symptoms: Negative except as documented in HPI. Genitourinary symptoms: Negative except as documented in HPI. Musculoskeletal symptoms: Negative except as documented in HPI. Neurologic symptoms: Negative except as documented in HPI. Psychiatric symptoms: Negative except as documented in HPI. Endocrine symptoms: Negative except as documented in HPI. PFSH ED 2 PFSH: Medical History (Updated 05/31/25 @ 18:09 by Maxine Nichole MD) Chronic low back pain Squamous cell carcinoma of skin Basal cell carcinoma of skin ALVAREZ (obstructive sleep apnea) Female cystocele Coronary artery disease s/p PCI of obtuse marginal artery History of Helicobacter pylori infection Carotid artery disease complete occlusion R cerivcal ICA Hearing loss of both ears Essential hypertension ARUN (generalized anxiety disorder) TMJ (dislocation of temporomandibular joint) Obesity (BMI 30.0-34.9) Asthma Diverticulosis Mixed hyperlipidemia GERD (gastroesophageal reflux disease) Vitamin D deficiency Surgical History History of total hysterectomy with bilateral salpingo-oophorectomy (BSO) H/O esophagogastroduodenoscopy (08/18/20) with dilation H/O colonoscopy 5 yrs ago History of foot surgery Left 2nd toe joint removed History of tonsillectomy History of cholecystectomy Family History Mother Diabetes Dementia Son Hypertension Daughter Hypertension Diabetes Cancer Lung disease Clotting disorder Father Cardiovascular disease Grandmother Anesthesia complication Cardiovascular disease Grandfather Cardiovascular disease Denies family history of CAD (coronary artery disease) Hyperlipidemia Psychiatric illness Chronic kidney disease (CKD) Suicide Bleeding disorder Family history of premature coronary artery disease Stroke Social History Smoking and tobacco/nicotine status: never used tobacco/nicotine Alcohol intake: never Substance/Drug Use: never Additional social history: 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 Skin: Warm, dry. Head: Normocephalic, atraumatic. Neck: Supple, trachea midline. Eye: Extraocular movements are intact. Ears, nose, mouth and throat: mucosa moist. Cardiovascular: Regular, Normal peripheral perfusion. Respiratory: Lungs are clear to auscultation, respirations are non-labored, breath sounds are equal, Symmetrical chest wall expansion. Gastrointestinal: Soft, Nontender, Non distended Musculoskeletal: Normal ROM, no deformity. Neurological: Alert and oriented, No focal neurological deficit observed. Psychiatric: Cooperative, appropriate mood & affect. Course 2 Vital Signs: Vital signs: Vital Signs Temperature 98.5 F 05/31/25 13:29 Pulse Rate 59 L 05/31/25 15:34 Respiratory Rate 20 H 05/31/25 15:34 Blood Pressure 183/72 05/31/25 17:59 Pulse Oximetry 100 05/31/25 15:34 Oxygen Delivery Me thod Room Air 05/31/25 15:34 MDM - Chest Pain Medical Decision Making Differential diagnosis for patient with chest pain includes but is not limited to and based on the above HPI, review of systems and physical exam: Pneumonia. unstable angina. angina. Acute coronary syndrome / MO. Pulmonary embolism. Costochondritis / musculoskeletal. Pleurisy. Pericarditis. Esophageal spasm. Pancreatis. Cholecystitis. Orders placed to evaluate differential diagnosis based on the above differential, HPI and physical exam EKG: Time 1334. Rate 61. Normal sinus rhythm, No ST-T changes, no ectopy, normal MA & QRS intervals, This was reviewed and interpreted by myself the ER physician at 1340 Repeat EKG: Time 1610. Rate 62. Normal sinus rhythm, No ST-T changes, no ectopy, normal MA & QRS intervals, This was reviewed and interpreted by myself the ER physician at 1615. No changes from EKG done previous in the emergency room today. Lab Review: Laboratory results were reviewed and interpreted by myself the emergency room physician. No leukocytosis. No anemia. No renal failure. Initial cardiac enzyme is negative. Patient continues to have worsening hypertension blood pressure as high as 223. Clonidine has been given. Second troponin is pending. Patient care transitioned to Dr. Nichole at shift change. Lab Data 05/31/25 14:47 05/31/25 14:47 Radiology Impressions Chest X-Ray 05/31/25 13:41 IMPRESSION: No acute findings. Laboratory Results WBC 4.43 10^3/uL (3.29-11.43) 05/31/25 14:47 RBC 4.25 10^6/uL (3.85-5.65) 05/31/25 14:47 Hgb 13.30 g/dL (11.27-16.99) 05/31/25 14:47 Hct 39.6 % (36-47) 05/31/25 14:47 MCV 93.2 fl (85-98) 05/31/25 14:47 MCH 31.3 pg (27-33) 05/31/25 14:47 MCHC 33.6 g/dL (30-55) 05/31/25 14:47 RDW 11.6 % (12.1-15.1) L 05/31/25 14:47 Plt Count 217 10^3/cmm (157-399) 05/31/25 14:47 MPV 9.6 fL (7.4-10.4) 05/31/25 14:47 Neut % (Auto) 75.0 % 05/31/25 14:47 Lymph % (Auto) 11.7 % 05/31/25 14:47 [place] % (Auto) 9.9 % 05/31/25 14:47 Eos % (Auto) 2.5 % 05/31/25 14:47 Baso % (Auto) 0.7 % 05/31/25 14:47 Neut # (Auto) 3.32 10^3/uL (1.8-7.7) 05/31/25 14:47 Lymph # (Auto) 0.5 10^3/uL (0.8-4.8) L 05/31/25 14:47 [place] # (Auto) 0.4 10^3/uL (0.2-0.9) 05/31/25 14:47 Eos # (Auto) 0.1 10^3/uL (0.0-0.8) 05/31/25 14:47 Baso # (Auto) 0.0 10^3/uL (0.0-0.1) 05/31/25 14:47 Nucleated RBC % (auto) 0 % 05/31/25 14:47 Nucleated RBCs # 0.0 /100WBC 05/31/25 14:47 Sodium 139 mmol/L (136-145) 05/31/25 14:47 Potassium 4.2 mmol/L (3.5-5.1) 05/31/25 14:47 Chloride 101 mmol/L (98-107) 05/31/25 14:47 Carbon Dioxide 26 mmol/L (22-29) 05/31/25 14:47 Anion Gap 16.2 (5-19) 05/31/25 14:47 BUN 16 mg/dL (8-23) 05/31/25 14:47 Creatinine 0.9 mg/dL (0.5-0.9) 05/31/25 14:47 GFR Calculation Not Reportable 05/31/25 14:47 Glucose 112 mg/dL (65-115) 05/31/25 14:47 Calculated Osmolality 290 mOsm/kg (285-295) 05/31/25 14:47 Calcium 9.6 mg/dL (8.5-10.5) 05/31/25 14:47 Total Bilirubin 0.7 mg/dL (0.15-1.2) 05/31/25 14:47 AST 15 U/L (0-32) 05/31/25 14:47 ALT 15 U/L (0-33) 05/31/25 14:47 Alkaline Phosphatase 60 U/L (35-105) 05/31/25 14:47 Troponin T Baseline 10 ng/L (0-10) 05/31/25 14:47 Troponin T 120 Minute 9.13 ng/L (0-10) 05/31/25 16:44 Delta Troponin T -0.87 ABS# (0-10) L 05/31/25 16:44 NT-Pro-B Natriuret Pep 855 pg/mL (0-125) H 05/31/25 14:47 Total Protein 6.3 g/dL (6.6-8.7) L 05/31/25 14:47 Albumin 4.6 g/dL (3.5-5.2) 05/31/25 14:47 Globulin 1.7 g/dL (1.3-4.6) 05/31/25 14:47 Clincial Decision Support The following clinical decision support tools were used to aid in care of the patient HEART Score -> History: Moderately Suspicious, EKG: Normal, Age: 65 or more yrs, Risk Factors: >/=3 Risk Factors, Troponin: Baseline Trop <16 ng/L. Resulting HEART Score: 5. Discharge Plan Discharge Patient Disposition: Home Clinical Impression: Essential hypertension, Atypical chest pain Condition: Stable Prescriptions: No Action Complete MV Adult 50 Plus 0.4 mg-300 mcg- 250 mcg tablet 1 tab PO DAILY olopatadine [Pataday Once Daily Relief] 0.2 % drops 1 drp ophthalmic (eye) DAILY PRN (Reason: itching) Qty: 2.5 0RF omeprazole 20 mg capsule,delayed release(DR/EC) 20 mg PO DAILY aspirin 81 mg tablet 81 mg PO DAILY acetaminophen [Tylenol Extra Strength] 500 mg tablet 500 mg PO BID PRN (Reason: Pain) cholecalciferol (vitamin D3) 25 mcg (1,000 unit) capsule 125 mcg PO DAILY nitroglycerin 0.4 mg tablet, sublingual 0.4 mg sublingual Q5M PRN (Reason: Chest Pain) Qty: 30 3RF (DME) night splint See Rx Instructions .Route .MEDSUPPLY Qty: 1 0RF Rx Instructions: As directed (DME) Auto-Titrating CPAP Device See Rx Instructions .Route Qty: 1 0RF Rx Instructions: As directed lisinopril 20 mg tablet 20 mg PO BID Qty: 180 3RF labetalol 200 mg tablet 200 mg PO BID clopidogrel 75 mg tablet 75 mg PO DAILY Discharge Orders: Discharge ED (Routine); Ordered 05/31/25 Ordered By: Maxine Nichole Referrals: Florencia Ramirez MD [Primary Care Provider, Family Practice] - 4-7 days Discharge Diet: Advance as tolerated Discharge Activity: Resume usual activity Patient Instructions: Chest Pain (ED) Print Language: Albanian Coding Level of Care Code ED Import Specialist for Chg Fwd Heart Score HEART Score Components History: Moderately Suspicious EKG: Normal Age: 65 or more yrs Risk Factors: >/=3 Risk Factors Troponin: Baseline Trop <16 ng/L HEART Score RESULT HEART Score: 5 Documented by User: Maxine Nichole MD 05/31/25 18:11 HPI - Chest Pain 2 General: Chief Complaint: Chest Pain Stated Complaint: spikes in BP, cp, angina, swollen glands in neck, Time Seen by Provider: 05/31/25 15:06 Related Data Home Medications ?Medication ?Instructions ?Recorded ?Confirmed acetaminophen 500 mg tablet 500 mg PO BID PRN Pain 05/31/25 (Tylenol Extra Strength) xspipgmg-inm-tfdci acid 0.4 1 tab PO DAILY 07/01/22 mg-lycopene 300 mcg-lutein 250 mcg tablet (Complete Multivitamin Adult 50 Plus) cholecalciferol (vitamin D3) 25 125 mcg PO DAILY 04/1305/31/25 mcg (1,000 unit) capsule aspirin 81 mg tablet 81 mg PO DAILY 04/09/2505/14 omeprazole 20 mg capsule,delayed 20 mg PO DAILY 05/31/25 release clopidogrel 75 mg tablet 75 mg PO DAILY 05/31/2505/14 labetalol 200 mg tablet 200 mg PO BID 05/31/2505/31 Previous Rx's ?Medication ?Instructions ?Recorded nitroglycerin 0.4 mg sublingual 0.4 mg sublingual Q5M PRN Chest 03/21/23 tablet Pain #30 tabs CPAP (Auto-Titrating CPAP) #1 ea 06/22/23 night splint #1 ea 10/10/23 olopatadine 0.2 % eye drops 1 drp ophthalmic (eye) MENDY LY PRN 03/31/25 (Pataday Once Daily Relief) itching #2.5 mL lisinopril 20 mg tablet 20 mg PO BID #180 tabs 04/23 Allergies Allergy/AdvReac Type Severity Reaction Status Date / Time rosuvastatin Allergy Severe myalgia Verified 05/31/25 13:36 carvedilol Allergy exhaustion Verified 05/31/25 13:36 doxycycline Allergy rash Verified 05/31/25 13:36 erythromycin base Allergy Rash Verified 05/31/25 13:36 nitrofurantoin (From Allergy rash Verified 05/31/25 13:36 Macrodantin) Sulfa (Sulfonamide Allergy ALGY-Hives Verified 05/31/25 13:36 Antibiotics) metformin AdvReac Severe Diarrhea Verified 05/31/25 13:36 atorvastatin (From Lipitor) AdvReac Myalgia Verified 05/31/25 13:36 [facility] ED 2 [facility]: Medical History (Updated 05/31/25 @ 18:09 by Maxine Nichole MD) Chronic low back pain Squamous cell carcinoma of skin Basal cell carcinoma of skin ALVAREZ (obstructive sleep apnea) Female cystocele Coronary artery disease s/p PCI of obtuse marginal artery History of Helicobacter pylori infection Carotid artery disease complete occlusion R cerivcal ICA Hearing loss of both ears Essential hypertension ARUN (generalized anxiety disorder) TMJ (dislocation of temporomandibular joint) Obesity (BMI 30.0-34.9) Asthma Diverticulosis Mixed hyperlipidemia GERD (gastroesophageal reflux disease) Vitamin D deficiency Surgical History History of total hysterectomy with bilateral salpingo-oophorectomy (BSO) H/O esophagogastroduodenoscopy (08/18/20) with dilation H/O colonoscopy 5 yrs ago History of foot surgery Left 2nd toe joint removed History of tonsillectomy History of cholecystectomy Family History Mother Diabetes Dementia Son Hypertension Daughter Hypertension Diabetes Cancer Lung disease Clotting disorder Father Cardiovascular disease Grandmother Anesthesia complication Cardiovascular disease Grandfather Cardiovascular disease Denies family history of CAD (coronary artery disease) Hyperlipidemia Psychiatric illness Chronic kidney disease (CKD) Suicide Bleeding disorder Family history of premature coronary artery disease Stroke Social History Smoking and tobacco/nicotine status: never used tobacco/nicotine Alcohol intake: never Substance/Drug Use: never Additional social history: 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 CODE STATUS as discussed today with Aayush Mcgraw MD on 03/26/2025 Adopted: No Caregiver/support person: No Lives independently: Yes Household members: none Marital status: Number of children: 2 Current occupational status: retired 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 Do you think of yourself as: Straight/Heterosexual Current gender identity: Female Syeda/Islam: Episcopalian Special syeda needs: No Agree to transfusion: Yes Course 2 Vital Signs: Vital signs: Vital Signs Temperature 98.5 F 05/31/25 13:29 Pulse Rate 59 L 05/31/25 15:34 Respiratory Rate 20 H 05/31/25 15:34 Blood Pressure 183/72 05/31/25 17:59 Pulse Oximetry 100 05/31/25 15:34 Oxygen Delivery Me thod Room Air 05/31/25 15:34 MDM - Chest Pain Medical Decision Making Differential diagnosis for patient with chest pain includes but is not limited to and based on the above HPI, review of systems and physical exam: Pneumonia. unstable angina. angina. Acute coronary syndrome / MO. Pulmonary embolism. Costochondritis / musculoskeletal. Pleurisy. Pericarditis. Esophageal spasm. Pancreatis. Cholecystitis. Orders placed to evaluate differential diagnosis based on the above differential, HPI and physical exam EKG: Time 1334. Rate 61. Normal sinus rhythm, No ST-T changes, no ectopy, normal MA & QRS intervals, This was reviewed and interpreted by myself the ER physician at 1340 Repeat EKG: Time 1610. Rate 62. Normal sinus rhythm, No ST-T changes, no ectopy, normal MA & QRS intervals, This was reviewed and interpreted by myself the ER physician at 1615. No changes from EKG done previous in the emergency room today. Lab Review: Laboratory results were reviewed and interpreted by myself the emergency room physician. No leukocytosis. No anemia. No renal failure. Initial cardiac enzyme is negative. Patient continues to have worsening hypertension blood pressure as high as 223. Clonidine has been given. Second troponin is pending. Patient care transitioned to Dr. Nichole at shift change. Took patient over from previous physician. I did speak to patient she is currently pain-free blood pressure has improved. Is currently 134/66 2-hour troponin was negative. Her heart score is 5 but her pain is very atypical in nature do not believe that she has ACS she has no signs of pulmonary embolism. Patient's wanting to go home I feel she is stable for discharge at this time I did inform her if her pain returns she is to return immediately she is to follow-up with PCP in 2 to 4 days she understands agrees to plan. Lab Data 05/31/25 14:47 05/31/25 14:47 Radiology Impressions Chest X-Ray 05/31/25 13:41 IMPRESSION: No acute findings. Laboratory Results WBC 4.43 10^3/uL (3.29-11.43) 05/31/25 14:47 RBC 4.25 10^6/uL (3.85-5.65) 05/31/25 14:47 Hgb 13.30 g/dL (11.27-16.99) 05/31/25 14:47 Hct 39.6 % (36-47) 05/31/25 14:47 MCV 93.2 fl (85-98) 05/31/25 14:47 MCH 31.3 pg (27-33) 05/31/25 14:47 MCHC 33.6 g/dL (30-55) 05/31/25 14:47 RDW 11.6 % (12.1-15.1) L 05/31/25 14:47 Plt Count 217 10^3/cmm (157-399) 05/31/25 14:47 MPV 9.6 fL (7.4-10.4) 05/31/25 14:47 Neut % (Auto) 75.0 % 05/31/25 14:47 Lymph % (Auto) 11.7 % 05/31/25 14:47 [place] % (Auto) 9.9 % 05/31/25 14:47 Eos % (Auto) 2.5 % 05/31/25 14:47 Baso % (Auto) 0.7 % 05/31/25 14:47 Neut # (Auto) 3.32 10^3/uL (1.8-7.7) 05/31/25 14:47 Lymph # (Auto) 0.5 10^3/uL (0.8-4.8) L 05/31/25 14:47 [place] # (Auto) 0.4 10^3/uL (0.2-0.9) 05/31/25 14:47 Eos # (Auto) 0.1 10^3/uL (0.0-0.8) 05/31/25 14:47 Baso # (Auto) 0.0 10^3/uL (0.0-0.1) 05/31/25 14:47 Nucleated RBC % (auto) 0 % 05/31/25 14:47 Nucleated RBCs # 0.0 /100WBC 05/31/25 14:47 Sodium 139 mmol/L (136-145) 05/31/25 14:47 Potassium 4.2 mmol/L (3.5-5.1) 05/31/25 14:47 Chloride 101 mmol/L (98-107) 05/31/25 14:47 Carbon Dioxide 26 mmol/L (22-29) 05/31/25 14:47 Anion Gap 16.2 (5-19) 05/31/25 14:47 BUN 16 mg/dL (8-23) 05/31/25 14:47 Creatinine 0.9 mg/dL (0.5-0.9) 05/31/25 14:47 GFR Calculation Not Reportable 05/31/25 14:47 Glucose 112 mg/dL (65-115) 05/31/25 14:47 Calculated Osmolality 290 mOsm/kg (285-295) 05/31/25 14:47 Calcium 9.6 mg/dL (8.5-10.5) 05/31/25 14:47 Total Bilirubin 0.7 mg/dL (0.15-1.2) 05/31/25 14:47 AST 15 U/L (0-32) 05/31/25 14:47 ALT 15 U/L (0-33) 05/31/25 14:47 Alkaline Phosphatase 60 U/L (35-105) 05/31/25 14:47 Troponin T Baseline 10 ng/L (0-10) 05/31/25 14:47 Troponin T 120 Minute 9.13 ng/L (0-10) 05/31/25 16:44 Delta Troponin T -0.87 ABS# (0-10) L 05/31/25 16:44 NT-Pro-B Natriuret Pep 855 pg/mL (0-125) H 05/31/25 14:47 Total Protein 6.3 g/dL (6.6-8.7) L 05/31/25 14:47 Albumin 4.6 g/dL (3.5-5.2) 05/31/25 14:47 Globulin 1.7 g/dL (1.3-4.6) 05/31/25 14:47 All radiology interpretation(s) finalized by discharge Clincial Decision Support The following clinical decision support tools were used to aid in care of the patient HEART Score -> Resulting HEART Score: 5. Discharge Plan Discharge Patient Disposition: Home Clinical Impression: Essential hypertension, Atypical chest pain Condition: Stable Prescriptions: No Action Complete MV Adult 50 Plus 0.4 mg-300 mcg- 250 mcg tablet 1 tab PO DAILY olopatadine [Pataday Once Daily Relief] 0.2 % drops 1 drp ophthalmic (eye) DAILY PRN (Reason: itching) Qty: 2.5 0RF omeprazole 20 mg capsule,delayed release(DR/EC) 20 mg PO DAILY aspirin 81 mg tablet 81 mg PO DAILY acetaminophen [Tylenol Extra Strength] 500 mg tablet 500 mg PO BID PRN (Reason: Pain) cholecalciferol (vitamin D3) 25 mcg (1,000 unit) capsule 125 mcg PO DAILY nitroglycerin 0.4 mg tablet, sublingual 0.4 mg sublingual Q5M PRN (Reason: Chest Pain) Qty: 30 3RF (DME) night splint See Rx Instructions .Route .MEDSUPPLY Qty: 1 0RF Rx Instructions: As directed (DME) Auto-Titrating CPAP Device See Rx Instructions .Route Qty: 1 0RF Rx Instructions: As directed lisinopril 20 mg tablet 20 mg PO BID Qty: 180 3RF labetalol 200 mg tablet 200 mg PO BID clopidogrel 75 mg tablet 75 mg PO DAILY Discharge Orders: Discharge ED (Routine); Ordered 05/31/25 Ordered By: Maxine Nichole Referrals: Florencia Ramirez MD [Primary Care Provider, Family Practice] - 4-7 days Discharge Diet: Advance as tolerated Discharge Activity: Resume usual activity Patient Instructions: Chest Pain (ED) Print Language: Albanian Coding Level of Care Code ED Import Specialist for [place] Heart Score HEART Score RESULT HEART Score: 5
[2025-05-31 15:19] LABS: Troponin(5th) Baseline 10 ng/L (0-10)
[2025-05-31 15:32] LABS: Alanine Aminotransferase 15 U/L (0-33); Albumin Level 4.6 g/dL (3.5-5.2); Alkaline Phosphatase 60 U/L (35-105); Anion Gap 16.2 (5-19); Aspartate Amino Transferase 15 U/L (0-32); Blood Urea Nitrogen 16 mg/dL (8-23); Calcium 9.6 mg/dL (8.5-10.5); Carbon Dioxide 26 mmol/L (22-29); Chloride 101 mmol/L (98-107); Creatinine Clr Calc Pharmacy 54.6771; Globulin 1.7 g/dL (1.3-4.6); Glucose 112 mg/dL (65-115); NT Pro B Type Natriuretic Pept 855 pg/mL (0-125); Osmolality Calculated 290 mOsm/kg (285-295); Potassium 4.2 mmol/L (3.5-5.1); Sodium 139 mmol/L (136-145); Total Protein 6.3 g/dL (6.6-8.7)
[2025-05-31 15:34] VITALS: BP 223/79; PULSE 59; RESP 20; O2SAT 100
--- NOTE | 2025-05-31 16:10 | ECG_ITS ---
[facility] Date: 2025-05-31 Pat Name: Ana Cristina Stephens Department: Room: Gender: Female Manager Mail: : 1950 Requested By: Citlaly Lee Order Number: [id number] Taylor MD: Juventino Wylie M.D. Measurements Intervals [place] Rate: 62 P: 74 [place]: 172 QRS: 14 QRSD: 90 T: 58 QT: 417 QTc: 424 Interpretive Statements SINUS RHYTHM Compared to ECG 05/31/2025 13:34:42 No significant changes Electronically Signed On 06-03-2025 19:49:18 CDT by Juventino Wylie M.D. [email or web address]
--- NOTE | 2025-05-31 16:45 | PC.PHAR ---
Pt has rx for Doxazosin 4mg daily last fill 04/28/25 90ds-Pt states Dr Rose in [place]-took her off of this medication. Pt states she never took any. Not added to pt med list.
[2025-05-31 17:14] LABS: Troponin 5 2HR 9.13 ng/L (0-10); Troponin 5 2HR Delta -0.87 ABS# (0-10)
[2025-05-31] MEDS: hyDRALAzine 20 mg/mL INJ 1 mL 10 MG IVP (17:58)
[2025-05-31 17:59] VITALS: BP 183/72
[2025-05-31 18:54] VITALS: BP 148/59; PULSE 66; RESP 16; O2SAT 98
== END 2025-05-31 18:56 | disposition home or self-care (01) ==
PROVIDERS: Emergency Medicine; Emergency Provider Emergency Medicine; PCP Family Medicine
DX: I10 Essential (primary) hypertension (principal); R07.89 Other chest pain; Z79.82 Long term (current) use of aspirin; Z79.02 Long term (current) use of antithrombotics/antiplatelets; I25.10 Atherosclerotic heart disease of native coronary artery without angina pectoris; E78.2 Mixed hyperlipidemia; Z85.828 Personal history of other malignant neoplasm of skin
CPT/HCPCS: 36415; 71045; 80053; 83880; 84484; 85025; 93005; 96374; 99285; J0360; J9999